=== PATIENT | male | born 1935 | race Caucasian/White ===

== ENCOUNTER 2017-10-31 14:58 | Inpatient (IN) | payer MEDICARE, OTHER ==
--- NOTE | 2017-10-31 15:17 | EDM.PDOC ---
ED HPI GENERAL MEDICAL PROBLEM - General Chief Complaint: Chest Pain Stated Complaint: CHEST PAIN Time Seen by Provider: 10/31/17 15:10 Source of Information: Reports: Patient, Family (daughter) History Limitations: Reports: No Limitations - History of Present Illness INITIAL COMMENTS - FREE TEXT/NARRATIVE: 82-year-old male presents the ED with pleuritic chest pains starting about 3 days ago. Initially was felt across his upper back, mid scapular area and felt on both sides aggravated by deep breathing. Subsequently it became anterior as well and over the last 12 hours and seemed to settle in the left precordium. He states he does have a nonproductive cough. He wasn't aware of any fever but he is very warm to palpation in the ED. Appetitie been very poor the last several days. He does appreciate mild increased shortness of breath on minimal exertion. 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 He states a lot of times she can't eat much because his gastric pouch is quite small but he feels much better than it was 4 years ago when it was first performed. He believes his weight is stable. Denies any night sweats. Onset: Gradual Onset Date: 10/28/17 (Started and across his back about 3 days ago went to his chest yesterday) Duration: Day(s):, Getting Worse, Intermittent, Waxing/Waning Location: Reports: Chest Quality: Reports: Sharp, Stabbing, Other (Pleuritic) Severity: Moderate Improves with: Reports: None Worsens with: Reports: Other, Movement Context: Denies: Activity (Coughing), Exercise, Lifting, Sick Contact, Trauma Associated Symptoms: Reports: Chest Pain, Cough (See history of present illness) , Loss of Appetite, Malaise, Shortness of Breath. 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: Other (see below) (None.) Chest Pain Score (Numeric/FACES): 5 - Related Data Allergies Allergy/AdvReac Type Severity Reaction Status Date / Time Penicillins Allergy Mild UNKNOWN Verified 07/21/15 17:16 Home Meds: Home Meds Aspirin [Halfprin] 81 mg PO DAILY 07/21/15 [History] Calcium Carbonate [Calcium] 500 mg PO Q2D 07/21/15 [History] Finasteride [Proscar] 5 mg PO DAILY 07/21/15 [History] Omeprazole 20 mg PO DAILY 07/21/15 [History] Tamsulosin [Flomax] 0.4 mg PO DAILY 07/21/15 [History] Ascorbate Calcium [Vitamin C] 500 mg PO DAILY 10/31/17 [History] Cyanocobalamin (Vitamin B-12) [Vitamin B-12] 500 mcg PO DAILY 10/31/17 [History] Ferrous Sulfate 325 mg PO DAILY 10/31/17 [History] Metoprolol Succinate [Toprol XL] 25 mg PO DAILY 10/31/17 [History] Pravastatin Sodium [Pravastatin (Pravachol)] 20 mg PO DAILY 10/31/17 [History] Sertraline HCl 50 mg PO DAILY 10/31/17 [History] Ubidecarenone [Coq-10] 200 mg PO DAILY 10/31/17 [History] Past Medical History Cardiovascular History: Reports: High Cholesterol, Hypertension, OR, Pacemaker, SOB on Exertion Respiratory History: Reports: COPD Genitourinary History: Reports: BPH, Prostate Disorder Musculoskeletal History: Reports: Arthritis, Back Pain, Chronic, Osteoarthritis Oncologic (Cancer) History: Reports: Other (See Below) (Gastric carcinoma requiring resection of almost all of his stomach approximately 95%. This occurred about 4-1/2 years ago.) Social & Family History - Tobacco Use Smoking Status *Q: Never Smoker Second Hand Smoke Exposure: No - Recreational Drug Use Recreational Drug Use: No - Living Situation & Occupation Living situation: Reports: (Spouse about 1-1/2 years ago from aggressive ovarian cancer.), Alone Occupation: Retired ED ROS GENERAL - Review of Systems Review Of Systems: See Below Constitutional: Reports: Malaise, Weakness, Fatigue, Decreased Appetite, Weight Loss, Other (He is febrile to examination but he is not aware of this.). Denies : Chills HEENT: Reports: Glasses (Has significant hearing loss.), Hearing Loss. Denies: Dental Pain Respiratory: Reports: Shortness of Breath, Pleuritic Chest Pain (Pleuritic chest pain 3 days felt initially across his upper back now settling more in the left upper anterior chest.), Cough. Denies: Wheezing (Mild), Hemoptysis ( Occasional cough with sputum production usually clear in color.) Cardiovascular: Reports: Chest Pain (Left precordial chest sharp and stabbing off and on for 3 days.), Blood Pressure Problem, Dyspnea on Exertion, Other ( Has a pacemaker in place.). Denies: Claudication (Mild chronic hypertension), Edema, Lightheadedness, Orthopnea, Palpitations Endocrine: Reports: Fatigue GI/Abdominal: Reports: Constipation, Decreased Appetite : Reports: Frequency, Other (Nocturia usually at least 3 times nightly.) Musculoskeletal: Reports: Neck Pain, Back Pain, Joint Pain (Knees hips and hands particularly.) Skin: Reports: No Symptoms Neurological: Reports: No Symptoms Psychiatric: Reports: No Symptoms Hematologic/Lymphatic: Reports: No Symptoms Immunologic: Reports: No Symptoms ED EXAM, GENERAL - Physical Exam Exam: See Below Exam Limited By: Physical Impairment (Mildly hard of hearing. Have to speak quite loudly to him.) General Appearance: Alert, WD/WN, No Apparent Distress, Thin (All ribs and bones are easily visible.) Eye Exam: Bilateral Eye: Normal Inspection Throat/Mouth: Normal Inspection, Normal Lips, Normal Oropharynx. No: Normal Teeth Head: Atraumatic, Normocephalic Neck: Normal Inspection, Supple, Non-Tender, Full Range of Motion. No: Lymphadenopathy (L), Lymphadenopathy (R) Respiratory/Chest: Respiratory Distress, Decreased Breath Sounds (Breath sounds are severely diminished at both posterior lung davis but worse on the right as compared to the left.), Other (Mild tachypnea at rest. Has mild kyphosis with a component of restrictive lung disease. Has COPD.) Cardiovascular: Normal Peripheral Pulses, Regular Rate, Rhythm (100% paced rhythm at 70/m.), Other (Right upper anterior chest scar from removal and placement of a Port-A-Cath in the past. Pacemaker left upper anterior chest.) Peripheral Pulses: 2+: Posterior Tibial (L), Posterior Tibial (R), Dorsalis Pedis (L), Dorsalis Pedis (R) GI/Abdominal: Normal Bowel Sounds, Soft, Non-Tender, No Organomegaly Back Exam: Decreased Range of Motion (Patient has restricted range of motion of lumbar and thoracic spine.), Other. No: Full Range of Motion, CVA Tenderness (L ), CVA Tenderness (R) (Moderate kyphosis thoracic spine.) Extremities: Other (Severe osteophytic changes in all of his distal fingers i.e. severe osteoarthritis.) Neurological: Alert, Oriented, CN II-XII Intact, Normal Cognition, No Motor/ Sensory Deficits. No: Normal Gait Psychiatric: Normal Affect, Normal Mood Skin Exam: Warm, Dry, Intact, Normal Color, No Rash EKG INTERPRETATION EKG Date: 10/31/17 Time: 15:05 Rhythm: Other (100% ventricular paced rhythm at 70/m.) Rate (Beats/Min): 70 [place]: LAD-Left [place] Deviation (Mild left axis deviation at -10.) P-Wave: Present (Complete heart block evident.) QRS: Other (Nonspecific intraventricular conduction delay.) EKG Interpretation Comments: No further analysis attempted due to 100% paced rhythm. Course - Vital Signs Last Recorded V/S: Last Vital Signs Temp 2.9 C L 10/31/17 15:44 Pulse 81 10/31/17 15:04 Resp 20 10/31/17 15:04 BP 138/72 10/31/17 15:04 Pulse Ox 98 10/31/17 15:04 - Orders/Labs/Meds Orders: Active Orders 24 hr Category Date Time Status EKG Documentation Completion [RC] STAT Care 10/31/17 15:19 Active CULTURE BLOOD [BC] Stat Lab 10/31/17 15:40 Received CULTURE BLOOD [BC] Stat Lab 10/31/17 16:08 Received Blood Culture x2 Reflex Set [OM.PC] Stat Oth 10/31/17 15:20 Ordered Labs: Laboratory Tests 10/31/17 10/31/17 10/31/17 Range/Units 15:20 15:20 15:20 WBC 13.02 H (4.23-9.07) K/mm3 RBC 3.85 L (4.63-6.08) M/mm3 Hgb 12.2 L (13.7-17.5) gm/L Hct 37.6 L (40.1-51.0) % MCV 97.7 H (79.0-92.2) fl MCH 31.7 (25.7-32.2) pg MCHC 32.4 (32.2-35.5) g/dl RDW Std Deviation 43.0 (35.1-43.9) fL Plt Count 256 (163-337) K/mm3 MPV 10.8 (9.4-12.3) fl Neutrophils % (Manual) 87 H (40-60) % Band Neutrophils % 0 (0-10) % Lymphocytes % (Manual) 6 L (20-40) % Atypical Lymphs % 0 % Monocytes % (Manual) 7 (2-10) % Eosinophils % (Manual) 0 L (0.8-7.0) % Basophils % (Manual) 0 L (0.2-1.2) Platelet Estimate Adequate Plt Morphology Comment Normal Poikilocytosis 1+ slight ESR 84 H (0-15) mm/hr PT 11.8 (8.0-13.0) SECONDS INR 1.08 Sodium (136-145) mEq/L Potassium (3.5-5.1) mEq/L Chloride (98-107) mEq/L Carbon Dioxide (21-32) mEq/L Anion Gap (5-15) BUN (7-18) mg/dL Creatinine (0.7-1.3) mg/dL Est Cr Clr Drug Dosing mL/min Estimated GFR (MDRD) (>60) mL/min BUN/Creatinine Ratio (14-18) Glucose (83-115) mg/dL Calcium (8.5-10.1) mg/dL Magnesium (1.8-2.4) mg/dl Total Bilirubin (0.2-1.0) mg/dL AST (15-37) U/L ALT (16-63) U/L Alkaline Phosphatase (46-116) U/L CK-MB (CK-2) (0-3.6) ng/ml Troponin I (0.00-0.056) ng/mL C-Reactive Protein (<1.0) mg/dL NT-Pro-B Natriuret Pep (0-450) pg/mL Total Protein (6.4-8.2) g/dl Albumin (3.4-5.0) g/dl Globulin gm/dL Albumin/Globulin Ratio (1-2) Urine Color (Yellow) Urine Appearance (Clear) Urine pH (5.0-8.0) Ur Specific [place] (1.005-1.030) Urine Protein (Negative) Urine Glucose (UA) (Negative) Urine Ketones (Negative) Urine Occult Blood (Negative) Urine Nitrite (Negative) Urine Bilirubin (Negative) Urine Urobilinogen (0.2-1.0) Ur Leukocyte Esterase (Negative) Urine RBC (0-5) /hpf Urine WBC (0-5) /hpf Ur Epithelial Cells (0-5) /hpf Urine Bacteria (FEW) /hpf Urine Mucus (FEW) /hpf 10/31/17 10/31/17 Range/Units 15:20 16:50 WBC (4.23-9.07) K/mm3 RBC (4.63-6.08) M/mm3 Hgb (13.7-17.5) gm/L Hct (40.1-51.0) % MCV (79.0-92.2) fl MCH (25.7-32.2) pg MCHC (32.2-35.5) g/dl RDW Std Deviation (35.1-43.9) fL Plt Count (163-337) K/mm3 MPV (9.4-12.3) fl Neutrophils % (Manual) (40-60) % Band Neutrophils % (0-10) % Lymphocytes % (Manual) (20-40) % Atypical Lymphs % % Monocytes % (Manual) (2-10) % Eosinophils % (Manual) (0.8-7.0) % Basophils % (Manual) (0.2-1.2) Platelet Estimate Plt Morphology Comment Poikilocytosis ESR (0-15) mm/hr PT (8.0-13.0) SECONDS INR Sodium 140 (136-145) mEq/L Potassium 4.0 (3.5-5.1) mEq/L Chloride 105 (98-107) mEq/L Carbon Dioxide 24 (21-32) mEq/L Anion Gap 15.0 (5-15) BUN 20 H (7-18) mg/dL Creatinine 1.1 (0.7-1.3) mg/dL Est Cr Clr Drug Dosing 37.64 mL/min Estimated GFR (MDRD) > 60 (>60) mL/min BUN/Creatinine Ratio 18.2 H (14-18) Glucose 117 H (83-115) mg/dL Calcium 8.6 (8.5-10.1) mg/dL Magnesium 2.0 (1.8-2.4) mg/dl Total Bilirubin 1.0 (0.2-1.0) mg/dL AST 21 (15-37) U/L ALT 12 L (16-63) U/L Alkaline Phosphatase 83 (46-116) U/L CK-MB (CK-2) 1.3 (0-3.6) ng/ml Troponin I 0.085 H* (0.00-0.056) ng/mL C-Reactive Protein 15.9 H* (<1.0) mg/dL NT-Pro-B Natriuret Pep 17457 H (0-450) pg/mL Total Protein 6.8 (6.4-8.2) g/dl Albumin 2.6 L (3.4-5.0) g/dl Globulin 4.2 gm/dL Albumin/Globulin Ratio 0.6 L (1-2) Urine Color [place] H (Yellow) Urine Appearance Clear (Clear) Urine pH 6.0 (5.0-8.0) Ur Specific [place] > or = 1.030 (1.005-1.030) Urine Protein 2+ H (Negative) Urine Glucose (UA) Negative (Negative) Urine Ketones Trace H (Negative) Urine Occult Blood Negative (Negative) Urine Nitrite Negative (Negative) Urine Bilirubin 1+ H (Negative) Urine Urobilinogen 2.0 H (0.2-1.0) Ur Leukocyte Esterase Negative (Negative) Urine RBC 0-5 (0-5) /hpf Urine WBC 0-5 (0-5) /hpf Ur Epithelial Cells 0-5 (0-5) /hpf Urine Bacteria Few (FEW) /hpf Urine Mucus Many H (FEW) /hpf Meds: Medications Discontinued Medications Generic Name Dose Route Start Last Admin Trade Name Ori PRN Reason Stop Dose Admin Acetaminophen 650 mg 10/31/17 15:33 10/31/17 15:44 Tylenol PO 10/31/17 15:34 650 mg NOW ONE Administration Diatrizoate Meglum/Diatrizoate Sod 90 ml 10/31/17 19:29 10/31/17 19:53 Gastrografin 37% PO 10/31/17 19:30 90 ml ONETIME ONE Administration Furosemide 40 mg 10/31/17 17:03 10/31/17 17:11 Lasix IVPUSH 10/31/17 17:04 40 mg NOW ONE Administration Sodium Chloride 1,000 mls @ 125 mls/hr 10/31/17 15:30 10/31/17 16:31 Normal Saline IV 10/31/17 16:40 0 mls/hr ASDIRECTED BLAKE Infusion Levofloxacin/Dextrose 750 mg/ 150 mls @ 100 mls/hr 10/31/17 17:16 10/31/17 17 :23 Premix IV 10/31/17 18:45 100 mls/hr ONETIME ONE Administration Iopamidol 100 ml 10/31/17 19:29 10/31/17 19:53 Isovue-300 (61%) IVPUSH 10/31/17 19:30 100 ml ONETIME ONE Administration Sodium Chloride 10 ml 10/31/17 19:29 10/31/17 19:53 Saline Flush FLUSH 10/31/17 19:30 10 ml ONETIME ONE Administration - Radiology Interpretation Free Text/Narrative:: 82-year-old male presents the ED with pleuritic chest pains initially starting across his upper back 2-3 days ago and seemed to gradually worsening with sharp stabbing pain now in the left precordial chest. Has a history of previous microinfarction. History of complete heart block with pacemaker need left upper anterior chest. Patient's appetite is poor. Clinically he is febrile but denies cough or sputum production on a regular basis. His appetite is poor. He denies any severe chills. Clinically has decreased air into his right lower lobe. Plan 1 view chest x-ray septic workup will be done. - Re-Assessments/Exams Free Text/Narrative Re-Assessment/Exam: 10/31/17 15:56 chest x-ray done portably reveals clear lung davis. There is calcification of the coronary arteries as well as the arch of the aorta. Heart is boot-shaped suggesting left ventricular hypertrophy pattern. There is a pacemaker left upper anterior chest dual paced. Soft tissue swelling noted around the proximal right clavicle at the [place] sternomanubrial joint. Appears to be arthritis. 10/31/17 17:02 Lab work reveals an elevated white count at 13.02 with 87% neutrophils and no bands reported. Hemoglobin is 12.2 with hematocrit of 37.6. Sedimentation rate is markedly elevated at 84. PT is 11.8 with an INR 1.08. Sodium is 140 with potassium of 4.0. Chloride is 105 bicarbonate is 24. And a gap is 15 with BUN of 20. Creatinine is normal at 1.1. Glucose is 117. Calcium is 8.6. Magnesium is good at 2.0. Liver function is normal. CK-MB fraction is 1.3 troponin I is slightly elevated at 0.085. C-reactive protein is elevated at 15.9. BNP is markedly elevated at 12,302. Albumin fraction is low at 2.6. Influenza screen is negative. Patient has yet to void. Source of infection is therefore not yet identified but suspect prostate urinary tract is a secondary source. Will give Lasix 40 mg IV. IV has been reduced to peripheral lock. 10/31/17 17:14 patient is still febrile. He has passed a urine sample and it is being analyzed. I am going to start him on Levaquin 750 mg now as lab work strongly suggested occult infection likely in the prostate he recognizes he has incomplete emptying of his urinary bladder. 10/31/17 18:01 urinalysis is also negative for any obvious source of infection. Will have a bladder scan done on him after his next void to see what his residual is. 10/31/17 18:19 Source of infection therefore is not clarified. Will therefore proceed with CT of the chest, abdomen and pelvis with oral and IV contrast. His creatinine is 1.1. 10/31/17 20:47 CT of the abdomen has been finally done. It was done of the chest abdomen and pelvis. CT chest shows bilateral small pleural effusions and basilar atelectasis bilaterally. Diffuse emphysematous change small pericardial effusion. Her artery calcification is appreciated. Pacemaker noted left upper anterior chest. CT of the abdomen and pelvis performed. Reveals a cyst within the anterior right lobe of the liver measuring about 1.1 cm. Small cyst also noted posteriorly within the liver measuring 1.3 cm. No additional maladies seen within the liver. Spleen appears to be normal kidneys show symmetric contrast enhancement without hydronephrosis or mass. Due to glands are normal aorta shows diffuse atherosclerotic calcium case which continues into the iliac vessels without aneurysmal dilatation. Pancreas is poorly seen compared with atrophy. No peritoneal adenopathy or mesenteric abdomen maladies are seen. No pelvic mass or adenopathy appreciated either. Delayed images shows contrast within the distal ureters with minimal contrast seen within the urinary bladder. Prostate is grossly enlarged. Extensive degenerative disease of the thoracolumbar spine appreciated with scoliosis concave to the right appreciated due to degenerative disc and arthritis in his back. Surgical material is noted within the right lower abdomen compatible with previous hernia mesh repair. Appendix is not seen with any degree of certainty. Therefore no obvious source of infection identified within the urinary tract. I did aspirate a bladder scan postvoid and still not able to come up with enhanced to this. The numbers in the chart suggests that there is still 200 mils of urine left in his bladder postvoid. I will have this repeated after the next void as there is been a change of nursing staff. Once able discuss case with Dr. Mckenna manager communication hospitalist with a view to being admitted. Departure - Departure Time of Disposition: 21:10 Disposition: Home, Self-Care 01 Condition: Fair Clinical Impression: Pleurisy with effusion, CHF (NYHA class II, ACC/AHA stage C), Fever of unknown origin, Prostatism, Neutrophilic leukocytosis, History of cancer of stomach Referrals: Henrry Elizalde MD [Primary Care Provider] - Forms: ED Department Discharge - My Orders Last 24 Hours: My Active Orders 10/31/17 15:19 EKG Documentation Completion [RC] STAT 10/31/17 15:20 Blood Culture x2 Reflex Set [OM.PC] Stat 10/31/17 15:40 CULTURE BLOOD [BC] Stat 10/31/17 16:08 CULTURE BLOOD [BC] Stat - Assessment/Plan Last 24 Hours: My Active Orders 10/31/17 15:19 EKG Documentation Completion [RC] STAT 10/31/17 15:20 Blood Culture x2 Reflex Set [OM.PC] Stat 10/31/17 15:40 CULTURE BLOOD [BC] Stat 10/31/17 16:08 CULTURE BLOOD [BC] Stat
[2017-10-31] MEDS ORDERED: Sodium Chloride 0.9% 1,000 ML IV SCH (15:30)
[2017-10-31] MEDS ORDERED: Acetaminophen 325 MG Tab PO ONE (15:33)
--- NOTE | 2017-10-31 16:16 | CR ---
Chest: Portable view of the chest was obtained. Comparison: Prior chest x-ray of 07/21/15. Heart is enlarged. Tortuous thoracic aorta is noted. Pacemaker is present. Right shoulder prosthesis is seen. Lungs are clear with no acute infiltrates. Old trauma is noted to the left shoulder as well as previous left shoulder surgery. Scoliosis and degenerative change are noted within the spine. Impression: 1. Multiple findings as noted above. Nothing acute is seen on portable chest x-ray. Diagnostic code #2
[2017-10-31] MEDS ORDERED: Furosemide 40 MG/4 ML VIAL IVPUSH ONE (17:03)
[2017-10-31] MEDS ORDERED: Levofloxacin/Dextrose 5%-Water 750 MG in Premix Bag 1 BAG IV ONE (17:16)
[2017-10-31] MEDS ORDERED: Iopamidol 612 MG/ML 100 ML Bottle IVPUSH ONE (19:29)
[2017-10-31] MEDS ORDERED: Sodium Chloride 0.9% 10 ML Syringe FLUSH ONE (19:29)
[2017-10-31] MEDS ORDERED: Diatrizoate Meglumine/Diatrizoate Sodium 37% 120 ML Bottle PO ONE (19:29)
--- NOTE | 2017-10-31 20:34 | CT ---
CT chest Technique: Multiple axial sections were obtained through the chest. Intravenous contrast was utilized. Comparison: Prior chest x-ray performed earlier on the same day. Findings: Mediastinum and hilar regions appear within normal limits. Pacemaker is noted. Coronary artery calcification is noted. Minimal pericardial effusion is seen. Emphysematous changes are seen throughout the lungs. Slight atelectasis is seen within both lung bases. Small bilateral pleural effusions are noted. Bone window settings were reviewed which shows diffuse disc space narrowing and endplate osteophytes throughout the thoracic spine. Impression: 1. Small bilateral pleural effusions and bibasilar atelectasis. 2. Emphysematous change. 3. Small pericardial effusion and other incidental findings. Diagnostic code #3 CT abdomen and pelvis Technique: Multiple axial sections were obtained from above the dome of the diaphragm inferiorly through the pubic symphysis. Intravenous contrast and oral contrast has been given. Comparison: Prior noncontrast CT abdomen and pelvis exam of 07/21/15 performed as a ureteral stone protocol. Findings: Cyst identified within the anterior right lobe of the liver measuring approximately 1.1 cm. Small cyst noted posteriorly within the liver measuring 1.3 cm. No additional abnormality is seen within the liver. Spleen appears within normal limits. Kidneys show symmetric contrast enhancement without hydronephrosis or mass. Adrenal glands show no nodule. Aorta shows diffuse atherosclerotic calcification which continues into the iliac vessels without aneurysmal dilatation. Pancreas poorly is seen compatible with atrophy. No peritoneal adenopathy or mesenteric abnormalities are seen. No pelvic mass or adenopathy is seen. Delayed images shows contrast within distal ureters with minimal contrast seen within the bladder. Bone window settings were reviewed which shows diffuse degenerative change within the lumbar spine with multiple levels of vacuum phenomena as well as endplate spurring. Scoliosis is present within the lumbar spine. Surgical material is noted within the right lower abdomen within the groin compatible with previous hernia repair. Appendix is not identified with certainty. Impression: 1. Incidental findings as noted above. Nothing acute is appreciated on CT study of the abdomen and pelvis. Diagnostic code #2
--- NOTE | 2017-10-31 22:29 | PCM.HP ---
H&P History of Present Illness - General Date of Service: 10/31/17 Admit Problem/Dx: Chest pain, CHF Source of Information: Patient, Family, Old Records, Provider, RN, RN Notes Reviewed History Limitations: Reports: No Limitations - History of Present Illness Initial Comments - Free Text/Narative: Jose Armando Chamberlain is a 82 yo male who is to our ED today with pleuritic chest pain that started about 3 days ago. He states it initially started across his upper back midscapular area bilaterally. Is aggravated by deep breathing. It then progressed to become anterior as well as the last 12 hours and seemed to settle in his left precordium. It is reported nonproductive cough. Denies any fever but he does feel bark grinder the ED. Appetite is very poor the past several days. He does have increased dyspnea on exertion. 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 There is been no evidence of recurrent disease process, however he has not had a PET scan some time. He reports he is unable to eat much but is better than when it was initially performed. He reports weight is stable. Denies any night sweats. Once in the ED twelve-lead was a obtained shows 100% paced rhythm at 70 bpm. There is left axis deviation and an evident complete heart block. Nonspecific ventricular conduction delay. Temp is 98.8 Fahrenheit. Pulse 81. Respirations 20. Blood pressure 130/72. Pulse ox 98%. Blood cultures were obtained. Labs were obtained: WBC is elevated at 13.02. Hemoglobin low at 12.2. Hematocrit low at 37.6. He is macrocytic. Blood sugar 256,000. Neutrophils are elevated at 87%. There is no bandemia. ESR is elevated at 84. PT is 11.8. INR is 1.08. Sodium was good at 140. Potassium 4.0. Chloride 105. Maxzide 24. Anion gap is 15.0. BUN is 20. Creatinine 1.1. EGFR is greater than 60. Glucose is 117. Calcium 8.6. Magnesium 2.0. Total bilirubin 1.0. AST is 21, ALT 12, alkaline phosphatase 83. CK-MB is 1.3. Troponin 0.085. CRP is 15.9 which is high. ProBNP is very high at 12,302. Protein was good at 6.8. Albumin low at 2.6. UA was negative however the color was noted to be orange, 2+ protein, trace ketones, 1+ bilirubin, and many urine mucus were noted. He was given 650 mg Tylenol, 40 mg of Lasix, Serevent 50 mg of Levaquin, and fluids were started 125 mils an hour. He is noted to have a pacemaker in the left anterior chest. Chest x-rays performed and interpreted by Dr. Sarabia as showing a enlarged heart with tortuous thoracic aorta. Pacemaker is present. Right shoulder prosthesis is seen. Lungs are clear with no acute infiltrates. All traumas noted left shoulder as well as previous left shoulder surgery. Scoliosis and degenerative changes are noted within the spine. CT of the chest is obtained and interpreted by Dr. Sarabia as "1. Small bilateral pleural effusions and bibasilar atelectasis. 2. Emphysematous change. 3. Small pericardial effusion other incidental findings. CT of the abdomen and pelvis obtained and interpreted by Dr. Sarabia as "1. Several findings as noted. Nothing acute is appreciated on CT study of the abdomen and pelvis." He did have a post void bladder scan which showed 200 mils of urine postvoid. He does carry a history of HLD, HTN, GA, pacemaker, stress breath on exertion, COPD, BPH, prostate disorder, arthritis, chronic back pain, osteoarthritis, gastric carcinoma requiring resection with all his stomach at approximately 95% around for half years ago. He was never a smoker. Family reports he was being followed by urology for his bladder issues however he has not seen them in several years. He subsequently admitted to the medical floor on telemetry. He is a full code. His PCP is Dr. Elizalde at [facility]. Onset of Symptoms: Reports: Gradual Symptom Onset Date: 10/28/17 Duration of Symptoms: Reports: Getting Worse, Intermittent, Waxing/Waning Location: Reports: Chest Improves with: Reports: None Worsens with: Reports: Other (deep inspiration ), Movement Context: Reports: Lifting Associated Symptoms: Reports: Chest Pain, Cough, Loss of Appetite, Malaise, Shortness of Breath Chest Pain Score (Numeric/FACES): 3 - Related Data Allergies/Adverse Reactions: Allergies Allergy/AdvReac Type Severity Reaction Status Date / Time Penicillins Allergy Mild UNKNOWN Verified 07/21/15 17:16 Home Medications: Home Meds Aspirin [Halfprin] 81 mg PO DAILY 07/21/15 [History] Calcium Carbonate [Calcium] 500 mg PO Q2D 07/21/15 [History] Finasteride [Proscar] 5 mg PO DAILY 07/21/15 [History] Omeprazole 20 mg PO DAILY 07/21/15 [History] Tamsulosin [Flomax] 0.4 mg PO DAILY 07/21/15 [History] Ascorbate Calcium [Vitamin C] 500 mg PO DAILY 10/31/17 [History] Cyanocobalamin (Vitamin B-12) [Vitamin B-12] 500 mcg PO DAILY 10/31/17 [History] Ferrous Sulfate 325 mg PO DAILY 10/31/17 [History] Metoprolol Succinate [Toprol XL] 25 mg PO DAILY 10/31/17 [History] Pravastatin Sodium [Pravastatin (Pravachol)] 20 mg PO DAILY 10/31/17 [History] Sertraline HCl 50 mg PO DAILY 10/31/17 [History] Ubidecarenone [Coq-10] 200 mg PO DAILY 10/31/17 [History] Past Medical History HEENT History: Reports: Cataract, Impaired Vision Other HEENT History: corrective lenses Cardiovascular History: Reports: High Cholesterol, Hypertension, GA, Pacemaker, SOB on Exertion Respiratory History: Reports: COPD Gastrointestinal History: Reports: GERD Genitourinary History: Reports: BPH, Prostate Disorder Musculoskeletal History: Reports: Arthritis, Back Pain, Chronic, Osteoarthritis Hematologic History: Reports: Anemia, B12 Deficiency Oncologic (Cancer) History: Reports: Other (See Below) (Gastric carcinoma requiring resection of almost all of his stomach approximately 95%. This occurred about 4-1/2 years ago.) Other Oncologic History: stomach cancer - Past Surgical History HEENT Surgical History: Reports: Cataract Surgery Cardiovascular Surgical History: Reports: Pacer GI Surgical History: Reports: Other (See Below) Other GI Surgeries/Procedures: States 95% of stomach removed Musculoskeletal Surgical History: Reports: Carpal Tunnel, Other (See Below) Other Musculoskeletal Surgeries/Procedures:: rotator cuff repair Social & Family History - Tobacco Use Smoking Status *Q: Never Smoker Used Tobacco, but Quit: Yes Month Tobacco Last Used: 1959 Second Hand Smoke Exposure: No - Caffeine Use Caffeine Use: Reports: Coffee - Recreational Drug Use Recreational Drug Use: No - Living Situation & Occupation Living situation: Reports: (Spouse about 1-1/2 years ago from aggressive ovarian cancer.), Alone Occupation: Retired H&P Review of Systems - Review of Systems: Review Of Systems: See Below General: Reports: Malaise, Weakness, Fatigue, Decreased Appetite. Denies: Fever , Chills, Night Sweats, Weight Loss, Weight Gain HEENT: Denies: Dysphasia, Ear Pain, Eye Pain, Headaches, Rhinitis, Sinus Congestion, Sore Throat, Vertigo, Visual Changes Pulmonary: Reports: Shortness of Breath, Pleuritic Chest Pain, Cough, Sputum. Denies: Wheezing, Hemoptysis Cardiovascular: Reports: Chest Pain, Dyspnea on Exertion, Orthopnea. Denies: Palpitations, Edema, Lightheadedness Gastrointestinal: Reports: Constipation, Decreased Appetite. Denies: Diarrhea, Hematemesis, Hematochezia, Melena, Nausea, Vomiting Genitourinary: Reports: Frequency (will get up several times per night and only "dribble" ), Retention. Denies: Dysuria, Burning, Pain, Urgency Musculoskeletal: Reports: Neck Pain, Back Pain, Joint Pain (knees, hips, hands ) Skin: Reports: No Symptoms Psychiatric: Reports: No Symptoms Neurological: Reports: No Symptoms Hematologic/Lymphatic: Reports: No Symptoms Immunologic: Reports: No Symptoms Exam - Exam Exam: See Below - Vital Signs Vital Signs: Last Vital Signs Temp 37.3 F L 10/31/17 15:44 Pulse 81 10/31/17 15:04 Resp 20 10/31/17 15:04 BP 138/72 10/31/17 15:04 Pulse Ox 98 10/31/17 15:04 Weight: 129 lb - Exam General: Alert, Oriented, Cooperative. No: Mild Distress HEENT: Conjunctiva Clear, EACs Clear, EOMI, Hearing Intact (although somewhat hard of hearing ), Mucosa Moist & [place], Nares Patent, Normal Nasal Septum, Posterior Pharynx Clear, TMs Clear, PERRLA Neck: Supple, Trachea Midline, Full Range of Motion. No: Lymphadenopathy, JVD, Thyromegaly Lungs: Clear to Auscultation, Normal Respiratory Effort, Decreased Breath Sounds (bases) Cardiovascular: Regular Rate, Regular Rhythm, Other (pacemaker in left chest - 100% paced rhythm) GI/Abdominal Exam: Normal Bowel Sounds, Soft, Non-Tender, No Organomegaly, No Distention, No Abnormal Bruit, No Mass, Pelvis Stable (Male) Exam: Deferred Rectal (Males) Exam: Deferred Back Exam: Normal Inspection, Decreased Range of Motion, Other (mild kyphosis ) Extremities: Normal Range of Motion, Non-Tender, No Pedal Edema, Normal Capillary Refill, Other (severe osteoarthritic changes to fingers) Peripheral Pulses: 3+: Radial (L), Radial (R), Posterior Tibial (L), Posterior Tibial (R), Dorsalis Pedis (L), Dorsalis Pedis (R) Skin: Warm, Dry, Intact Neurological: Cranial Nerves Intact (grossly) Neuro Extensive - Mental Status: Alert, Oriented x3, Normal Mood/Affect, Normal Cognition, Memory Intact Neuro Extensive - Motor, Sensory, Reflexes: CN II-XII Intact (grossly ), Abnormal Gait Psychiatric: Alert, Normal Affect, Normal Mood - Patient Data Result Diagrams: 10/31/17 15:20 10/31/17 15:20 *Q Meaningful Use (ADM) - VTE *Q VTE Criteria *Q: - Stroke *Q Stroke Criteria *Q: - AMI *Q AMI Criteria *Q: - Problem List (1) CHF (NYHA class II, ACC/AHA stage C) SNOMED Code(s): 201152371 ICD Code: I50.9 - HEART FAILURE, UNSPECIFIED Status: Acute Priority: High Current Visit: Yes (2) Fever of unknown origin SNOMED Code(s): 5632076 ICD Code: R50.9 - FEVER, UNSPECIFIED Status: Acute Priority: High Current Visit: Yes (3) History of cancer of stomach SNOMED Code(s): 323509329 ICD Code: Z85.028 - PERSONAL HISTORY OF OTHER MALIGNANT NEOPLASM OF STOMACH Status: Chronic Priority: Low Current Visit: Yes (4) Neutrophilic leukocytosis SNOMED Code(s): 572979903 ICD Code: D72.9 - DISORDER OF WHITE BLOOD CELLS, UNSPECIFIED Status: Acute Priority: High Current Visit: Yes (5) Pleurisy with effusion SNOMED Code(s): 71537096 ICD Code: J90 - PLEURAL EFFUSION, NOT ELSEWHERE CLASSIFIED Status: Acute Priority: High Current Visit: Yes (6) COPD (chronic obstructive pulmonary disease) SNOMED Code(s): 77590809 ICD Code: J44.9 - CHRONIC OBSTRUCTIVE PULMONARY DISEASE, UNSPECIFIED Status : Chronic Priority: Medium Current Visit: Yes Qualifiers: COPD type: unspecified COPD Qualified Code(s): J44.9 - Chronic obstructive pulmonary disease, unspecified (7) BPH (benign prostatic hyperplasia) SNOMED Code(s): 211126499 ICD Code: N40.0 - BENIGN PROSTATIC HYPERPLASIA WITHOUT LOWER URINRY TRACT SYMP Status: Chronic Priority: Medium Current Visit: Yes Qualifiers: Lower urinary tract symptom presence: symptoms present Lower urinary tract symptom detail: urinary retention Qualified Code(s): N40.1 - Benign prostatic hyperplasia with lower urinary tract symptoms; R33.8 - Other retention of urine ; R33.8 - Other retention of urine (8) Arthritis SNOMED Code(s): 2937271 ICD Code: M19.90 - UNSPECIFIED OSTEOARTHRITIS, UNSPECIFIED SITE Status: Chronic Priority: Low Current Visit: No (9) Osteoarthritis SNOMED Code(s): 353651893 ICD Code: M19.90 - UNSPECIFIED OSTEOARTHRITIS, UNSPECIFIED SITE Status: Chronic Priority: Low Current Visit: No Qualifiers: Osteoarthritis location: multiple joints Osteoarthritis type: primary Qualified Code(s): M15.0 - Primary generalized (osteo)arthritis Problem List Initiated/Reviewed/Updated: Yes Assessment/Plan Comment:: I/P Acute: Suspected new onset CHF -In ED with pleurisy with pain over past 3 days, worsening -Hx/o GA, pacemaker - 100% paced rhythm on 12-lead -Family reports high salt intake, occasional pedal edema -BNP 45138 -repeat -Echo ordered -Lasix given in ED - continue BID to diuresis -Fluid and sodium restriction -Data Warehouse Administrator consult for CHF diet Elevated troponin -Troponin 0.085 in ED -CK-MB 1.3 -Likely due to demand ischemia from above -Hx/o GA -Will repeat Elevated CRP -15.9 -hx/o severe arthritis -Possibly due to chronic inflammatory state - i.e. severe arthritis -Monitor Leukocytosis -WBC 13.02 -[place] bark grinder ED per provider report -No documented fever, reports occasional productive cough with clear sputum -UA, CXR, Abdomen/Pelvis CT, influnza screen: all negative for acute findings -Chest CT - Bilateral pleural effusions and bibasilar atelectasis - IS/RT -Emphysematous changes -Small pericardial effusion -Blood cultures obtained -Family reports pt. has had inflamed "wisdom tooth" - dentist is following -Mycoplasma pneumonia, strep pneumoniae ordered -Levaquin 750mg given in ED - continue -Repeat CXR in 24-48 hrs Anemia -Hgb 12.2, Hct 13.6, macrocytic -Hx/o BUSTER and B-12 deficiency -Continue home supplementation -B12, Folate, Iron panel ordered -Has reported poor oral intake over past few days -No hematochezia, hematemesis, melena, or obvious bleeding Pleurisy -Pain across chest which is worse with deep inspiration -No recent trauma -CXR negative for acute findings -Hx/o severe arthritis and osteoarthritis, COPD -Pain medications as ordered -Monitor Urinary retention -200mL post void -Hx/o BPH, has seen urology in past but has been several years -UA negative -Family reports increased frequency with minimal output -"dribbles" -Home Flomax and finasteride -Monitor -Will likely need urology f/u after discharge Chronic: HLD HTN - home meds and PRN BB, hydralizine Hx/o GA Pacemaker with 100% paced rhythm Dyspnea on exhertion COPD - duoneb/RT if needed BPH Arthritis Back pain OA Hx/o gastric carcinoma with 95% stomach resection Plan: Admit to medical floor on telemetry CM for discharge planning PT/OT DVT/PE prophylaxis: ELLIOT hose and Lovenox Other orders as indicated above Routine AM labs Home medications as ordered Code status: Full Code; PCP: Dr. Elizalde at [facility] here in [place].
[2017-10-31] MEDS ORDERED: Acetaminophen/HYDROcodone 325-5 MG Tab PO PRN (22:47)
[2017-10-31] MEDS ORDERED: Docusate Sodium 100 MG Cap PO PRN (22:47)
[2017-10-31] MEDS ORDERED: Ondansetron 4 MG/2 ML SDV IV PRN (22:47)
[2017-10-31] MEDS ORDERED: Morphine 2 MG/ML Syringe IVPUSH PRN (22:47)
[2017-10-31] MEDS ORDERED: Bisacodyl 5 MG Tab PO PRN (22:47)
[2017-10-31] MEDS ORDERED: Ondansetron 4 MG Tab.DIS PO PRN (22:47)
[2017-10-31] MEDS ORDERED: Albuterol/Ipratropium 3.0-0.5 MG/3 ML Neb Soln NEB PRN (22:47)
[2017-10-31] MEDS ORDERED: Acetaminophen 325 MG Tab PO PRN (22:47)
[2017-10-31] MEDS ORDERED: Polyethylene Glycol 3350 Powder 17 GM Packet PO PRN (22:47)
[2017-10-31] MEDS ORDERED: Metoprolol Tartrate 5 MG/5 ML SDV IVPUSH PRN (22:52)
[2017-10-31] MEDS ORDERED: hydrALAZINE 20 MG/ML SDV IVPUSH PRN (22:52)
[2017-10-31] MEDS ORDERED: Nitroglycerin 0.4 MG Tab.SL SL PRN (22:53)
[2017-10-31] MEDS ORDERED: Famotidine 20 MG Tab PO SCH (23:00)
[2017-11-01] MEDS ORDERED: Ferrous Sulfate 325 MG Tab PO SCH (07:00)
[2017-11-01] MEDS: Furosemide 40 MG/4 ML VIAL IVPUSH SCH ×2 (07:36→12:40)
[2017-11-01] MEDS ORDERED: Enoxaparin 40 MG/0.4 ML Syringe SUBCUT SCH (09:00)
[2017-11-01] MEDS ORDERED: Non-Formulary Medication 1 Each (Pravastatin Sodium 20 MG) PO SCH (09:00)
[2017-11-01] MEDS ORDERED: Metoprolol Succinate 25 MG Tab.ER PO SCH (09:00)
[2017-11-01] MEDS ORDERED: Non-Formulary Medication 1 Each (Ubidecarenone 200 MG) PO SCH (09:00)
[2017-11-01] MEDS ORDERED: Enoxaparin 30 MG/0.3 ML Syringe SUBCUT SCH (09:00)
[2017-11-01] MEDS: Ascorbic Acid 500 MG Tab PO SCH (09:30)
[2017-11-01] MEDS: Finasteride 5 MG Tab PO SCH (09:30)
[2017-11-01] MEDS: Aspirin 81 MG Tab.EC PO SCH (09:32)
[2017-11-01] MEDS: Sertraline 50 MG Tab PO SCH (09:33)
[2017-11-01] MEDS: Cyanocobalamin (Vitamin B12) 1,000 MCG Tab PO SCH (09:33)
[2017-11-01] MEDS: Famotidine 20 MG Tab PO SCH (09:33)
[2017-11-01] MEDS: Tamsulosin 0.4 MG Cap.ER PO SCH (09:33)
[2017-11-01] MEDS: Enoxaparin 40 MG/0.4 ML Syringe SUBCUT SCH (09:34)
[2017-11-01] MEDS: Potassium Chloride 10% 20 MEQ/15 ML Soln 30 ML UD Cup PO SCH ×2 (10:41→21:51)
--- NOTE | 2017-11-01 10:44 | PCM.CONSN ---
- General Info Date of Service: 11/01/17 - Patient Data Vitals - Most Recent: Last Vital Signs Temp 97.9 F 11/01/17 08:49 Pulse 79 11/01/17 08:49 Resp 19 11/01/17 08:49 BP 116/74 11/01/17 09:58 Pulse Ox 97 11/01/17 08:49 Weight - Most Recent: 55.52 kg I&O - Last 24 Hours: Intake & Output 10/31/17 11/01/17 11/01/17 23:59 07:59 15:59 Intake Total 100 Output Total 600 400 Balance -600 -300 Lab Results Last 24 Hours: Laboratory Results - last 24 hr 10/31/17 11/01/17 11/01/17 Range/Units 23:14 06:05 06:05 WBC 8.23 (4.23-9.07) K/mm3 RBC 3.74 L (4.63-6.08) M/mm3 Hgb 11.9 L (13.7-17.5) gm/L Hct 36.1 L (40.1-51.0) % MCV 96.5 H (79.0-92.2) fl MCH 31.8 (25.7-32.2) pg MCHC 33.0 (32.2-35.5) g/dl RDW Std Deviation 42.0 (35.1-43.9) fL Plt Count 230 (163-337) K/mm3 MPV 10.9 (9.4-12.3) fl Neut % (Auto) 77.0 H (34.0-67.9) % Lymph % (Auto) 11.7 L (21.8-53.1) % [place] % (Auto) 10.7 (5.3-12.2) % Eos % (Auto) 0.4 L (0.8-7.0) Baso % (Auto) 0.1 (0.1-1.2) % Neut # (Auto) 6.34 H (1.78-5.38) K/mm3 Lymph # (Auto) 0.96 L (1.32-3.57) K/mm3 [place] # (Auto) 0.88 H (0.30-0.82) K/mm3 Eos # (Auto) 0.03 L (0.04-0.54) K/mm3 Baso # (Auto) 0.01 (0.01-0.08) K/mm3 Sodium 141 (136-145) mEq/L Potassium 3.3 L (3.5-5.1) mEq/L Chloride 106 (98-107) mEq/L Carbon Dioxide 25 (21-32) mEq/L Anion Gap 13.3 (5-15) BUN 24 H (7-18) mg/dL Creatinine 1.1 (0.7-1.3) mg/dL Est Cr Clr Drug Dosing 37.64 mL/min Estimated GFR (MDRD) > 60 (>60) mL/min BUN/Creatinine Ratio 21.8 H (14-18) Glucose 100 (83-115) mg/dL Calcium 8.3 L (8.5-10.1) mg/dL Iron (65-175) ug/dL TIBC (100-400) ug/dL % Saturation (20-55) % Transferrin (202-364) mg/dL Troponin I 0.096 H* 0.092 H* (0.00-0.056) ng/mL C-Reactive Protein 15.7 H* (<1.0) mg/dL NT-Pro-B Natriuret Pep 8508 H (0-450) pg/mL Vitamin B12 (193-986) pg/ml Folate (8.6-58.9) ng/mL Mycoplasma pneumon IgM Negative (NEGATIVE) 11/01/17 Range/Units 06:05 WBC (4.23-9.07) K/mm3 RBC (4.63-6.08) M/mm3 Hgb (13.7-17.5) gm/L Hct (40.1-51.0) % MCV (79.0-92.2) fl MCH (25.7-32.2) pg MCHC (32.2-35.5) g/dl RDW Std Deviation (35.1-43.9) fL Plt Count (163-337) K/mm3 MPV (9.4-12.3) fl Neut % (Auto) (34.0-67.9) % Lymph % (Auto) (21.8-53.1) % [place] % (Auto) (5.3-12.2) % Eos % (Auto) (0.8-7.0) Baso % (Auto) (0.1-1.2) % Neut # (Auto) (1.78-5.38) K/mm3 Lymph # (Auto) (1.32-3.57) K/mm3 [place] # (Auto) (0.30-0.82) K/mm3 Eos # (Auto) (0.04-0.54) K/mm3 Baso # (Auto) (0.01-0.08) K/mm3 Sodium (136-145) mEq/L Potassium (3.5-5.1) mEq/L Chloride (98-107) mEq/L Carbon Dioxide (21-32) mEq/L Anion Gap (5-15) BUN (7-18) mg/dL Creatinine (0.7-1.3) mg/dL Est Cr Clr Drug Dosing mL/min Estimated GFR (MDRD) (>60) mL/min BUN/Creatinine Ratio (14-18) Glucose (83-115) mg/dL Calcium (8.5-10.1) mg/dL Iron 26 L (65-175) ug/dL TIBC 154 (100-400) ug/dL % Saturation 17 L (20-55) % Transferrin 123 L (202-364) mg/dL Troponin I (0.00-0.056) ng/mL C-Reactive Protein (<1.0) mg/dL NT-Pro-B Natriuret Pep (0-450) pg/mL Vitamin B12 953 (193-986) pg/ml Folate 23.5 (8.6-58.9) ng/mL Mycoplasma pneumon IgM (NEGATIVE) Med Orders - Current: Current Medications Acetaminophen (Tylenol) 650 mg PO Q4H PRN PRN Reason: Pain (Mild 1-3)/fever Hydrocodone Bitart/Acetaminophen ([place] 325-5 Mg) 1 tab PO Q4H PRN PRN Reason: Pain (moderate 4-6) Albuterol/Ipratropium (Duoneb 3.0-0.5 Mg/3 Ml) 3 ml NEB Q4H PRN PRN Reason: Shortness Of Breath/wheezing Ascorbic Acid (Vitamin C) 500 mg PO DAILY [facility] Last Admin: 11/01/17 09:30 Dose: 500 mg Aspirin (Halfprin) 81 mg PO DAILY [facility] Last Admin: 11/01/17 09:32 Dose: 81 mg Bisacodyl (Dulcolax) 5 mg PO DAILY PRN PRN Reason: Constipation Cyanocobalamin (Vitamin B12) 500 mcg PO DAILY [facility] Last Admin: 11/01/17 09:33 Dose: 500 mcg Docusate Sodium (Colace) 100 mg PO BID PRN PRN Reason: Constipation Enoxaparin Sodium (Lovenox) 40 mg SUBCUT DAILY [facility] Last Admin: 11/01/17 09:34 Dose: 40 mg Famotidine (Pepcid) 20 mg PO DAILY [facility] Last Admin: 11/01/17 09:33 Dose: 20 mg Ferrous Sulfate (Ferrous Sulfate) 325 mg PO WITHBREAKFAST [facility] Last Admin: 11/01/17 07:36 Dose: 325 mg Finasteride (Proscar) 5 mg PO DAILY [facility] Last Admin: 11/01/17 09:30 Dose: 5 mg Furosemide (Lasix) 20 mg IVPUSH BID [facility] Hydralazine HCl (Apresoline) 10 mg IVPUSH Q6H PRN PRN Reason: Hypertension Levofloxacin/Dextrose 750 mg/ (Premix) 150 mls @ 100 mls/hr IV Q48H [facility] Metoprolol Succinate (Toprol Xl) 25 mg PO DAILY [facility] Metoprolol Tartrate (Lopressor) 5 mg IVPUSH Q4H PRN PRN Reason: Tachycardia Morphine Sulfate (Morphine) 0.5 mg IVPUSH Q2H PRN PRN Reason: Pain (severe 7-10) Stop: 11/01/17 22:49 Last Admin: 10/31/17 23:32 Dose: 0.5 mg Nitroglycerin (Nitrostat) 0.4 mg SL Q5M PRN PRN Reason: Chest Pain Non-Formulary Medication (Calcium Carbonate [Calcium]) 500 mg PO Q2D [facility] Ondansetron HCl (Zofran Odt) 4 mg PO Q6H PRN PRN Reason: nausea, able to take PO Ondansetron HCl (Zofran) 4 mg IV Q6H PRN PRN Reason: Nausea/Vomiting Polyethylene Glycol (Miralax) 17 gm PO DAILY PRN PRN Reason: Constipation Potassium Chloride (Potassium Chloride) 40 meq PO BID [facility] Senna/Docusate Sodium (Senna Plus) 1 tab PO BID PRN PRN Reason: Constipation Sertraline HCl (Zoloft) 50 mg PO DAILY [facility] Last Admin: 11/01/17 09:33 Dose: 50 mg Simvastatin (Zocor) 10 mg PO BEDTIME [facility] Tamsulosin HCl (Flomax) 0.4 mg PO DAILY [facility] Last Admin: 11/01/17 09:33 Dose: 0.4 mg Discontinued Medications Acetaminophen (Tylenol) 650 mg PO NOW ONE Stop: 10/31/17 15:34 Last Admin: 10/31/17 15:44 Dose: 650 mg Diatrizoate Meglum/Diatrizoate Sod (Gastrografin 37%) 90 ml PO ONETIME ONE Stop: 10/31/17 19:30 Last Admin: 10/31/17 19:53 Dose: 90 ml Enoxaparin Sodium (Lovenox) 40 mg SUBCUT DAILY [facility] Famotidine (Pepcid) 20 mg PO BID [facility] Last Admin: 10/31/17 23:29 Dose: 20 mg Furosemide (Lasix) 40 mg IVPUSH NOW ONE Stop: 10/31/17 17:04 Last Admin: 10/31/17 17:11 Dose: 40 mg Furosemide (Lasix) 40 mg IVPUSH BID [facility] Last Admin: 11/01/17 07:36 Dose: 40 mg Sodium Chloride (Normal Saline) 1,000 mls @ 125 mls/hr IV ASDIRECTED [facility] Stop: 10/31/17 16:40 Last Infusion: 10/31/17 16:31 Dose: 0 mls/hr Levofloxacin/Dextrose 750 mg/ (Premix) 150 mls @ 100 mls/hr IV ONETIME ONE Stop: 10/31/17 18:45 Last Admin: 10/31/17 17:23 Dose: 100 mls/hr Iopamidol (Isovue-300 (61%)) 100 ml IVPUSH ONETIME ONE Stop: 10/31/17 19:30 Last Admin: 10/31/17 19:53 Dose: 100 ml Non-Formulary Medication (Ubidecarenone) 200 mg PO DAILY [facility] Sodium Chloride (Saline Flush) 10 ml FLUSH ONETIME ONE Stop: 10/31/17 19:30 Last Admin: 10/31/17 19:53 Dose: 10 ml Consult PN Assessment/Plan Procedures: Procedures ASSAY OF MAGNESIUM (07/21/15) ASSAY OF PHOSPHORUS (07/21/15) ASSAY OF TROPONIN QUANT (07/21/15) CHEST X-RAY 1 VIEW FRONTAL (07/21/15) COMPLETE CBC W/AUTO DIFF WBC (07/21/15) COMPREHEN METABOLIC PANEL (07/21/15) CT ABD & PELVIS W/O CONTRAST (07/21/15) CULTURE AEROBIC IDENTIFY (10/19/14) ELECTROCARDIOGRAM TRACING (07/21/15) EMERGENCY DEPT VISIT (07/21/15) FLUOROGUIDE FOR VEIN DEVICE (01/05/14) MICROBE SUSCEPTIBLE HANSEL (10/19/14) ROUTINE VENIPUNCTURE (07/21/15) THER/PROPH/DIAG INJ SC/IM (07/21/15) THER/PROPH/DIAG IV INF INIT (07/21/15) URINALYSIS AUTO W/SCOPE (07/21/15) URINE BACTERIA CULTURE (10/19/14) Problem List Initiated/Reviewed/Updated: Yes My Orders Last 24 Hours: surgical consult dictated [facility]
[2017-11-01] MEDS ORDERED: Levofloxacin/Dextrose 5%-Water 750 MG in Premix Bag 1 BAG IV SCH (17:00)
--- NOTE | 2017-11-01 20:24 | PCM.PN ---
- General Info Date of Service: 11/01/17 Admission Dx/Problem (Free Text): Chest pain, CHF Functional Status: Reports: Pain Controlled, Tolerating Diet, Ambulating, Urinating, Incentive Spirometry. Denies: New Symptoms - Review of Systems General: Reports: No Symptoms, Weakness. Denies: Fever, Fatigue, Malaise HEENT: Reports: No Symptoms Pulmonary: Reports: Pleuritic Chest Pain. Denies: Shortness of Breath, Cough, Sputum Cardiovascular: Reports: No Symptoms. Denies: Chest Pain, Palpitations Gastrointestinal: Reports: No Symptoms. Denies: Abdominal Pain, Constipation, Diarrhea, Nausea, Vomiting Genitourinary: Reports: Frequency, Retention. Denies: Dysuria, Burning, Pain Musculoskeletal: Reports: Neck Pain, Shoulder Pain. Denies: Back Pain Skin: Reports: No Symptoms Neurological: Reports: No Symptoms Psychiatric: Reports: No Symptoms - Patient Data Vitals - Most Recent: Last Vital Signs Temp 98.1 F 11/01/17 16:06 Pulse 70 11/01/17 16:06 Resp 16 11/01/17 16:06 BP 95/62 11/01/17 16:06 Pulse Ox 97 11/01/17 16:06 Weight - Most Recent: 122 lb 6.4 oz I&O - Last 24 Hours: Intake & Output 11/01/17 11/01/17 11/01/17 06:59 14:59 22:59 Intake Total 100 0 Output Total 400 1175 Balance -300 -1175 Lab Results Last 24 Hours: Laboratory Results - last 24 hr 10/31/17 11/01/17 11/01/17 Range/Units 23:14 06:05 06:05 WBC 8.23 (4.23-9.07) K/mm3 RBC 3.74 L (4.63-6.08) M/mm3 Hgb 11.9 L (13.7-17.5) gm/L Hct 36.1 L (40.1-51.0) % MCV 96.5 H (79.0-92.2) fl MCH 31.8 (25.7-32.2) pg MCHC 33.0 (32.2-35.5) g/dl RDW Std Deviation 42.0 (35.1-43.9) fL Plt Count 230 (163-337) K/mm3 MPV 10.9 (9.4-12.3) fl Neut % (Auto) 77.0 H (34.0-67.9) % Lymph % (Auto) 11.7 L (21.8-53.1) % Oliver % (Auto) 10.7 (5.3-12.2) % Eos % (Auto) 0.4 L (0.8-7.0) Baso % (Auto) 0.1 (0.1-1.2) % Neut # (Auto) 6.34 H (1.78-5.38) K/mm3 Lymph # (Auto) 0.96 L (1.32-3.57) K/mm3 Oliver # (Auto) 0.88 H (0.30-0.82) K/mm3 Eos # (Auto) 0.03 L (0.04-0.54) K/mm3 Baso # (Auto) 0.01 (0.01-0.08) K/mm3 Sodium 141 (136-145) mEq/L Potassium 3.3 L (3.5-5.1) mEq/L Chloride 106 (98-107) mEq/L Carbon Dioxide 25 (21-32) mEq/L Anion Gap 13.3 (5-15) BUN 24 H (7-18) mg/dL Creatinine 1.1 (0.7-1.3) mg/dL Est Cr Clr Drug Dosing 37.64 mL/min Estimated GFR (MDRD) > 60 (>60) mL/min BUN/Creatinine Ratio 21.8 H (14-18) Glucose 100 (83-115) mg/dL Calcium 8.3 L (8.5-10.1) mg/dL Iron (65-175) ug/dL TIBC (100-400) ug/dL % Saturation (20-55) % Transferrin (202-364) mg/dL Troponin I 0.096 H* 0.092 H* (0.00-0.056) ng/mL C-Reactive Protein 15.7 H* (<1.0) mg/dL NT-Pro-B Natriuret Pep 8508 H (0-450) pg/mL Vitamin B12 (193-986) pg/ml Folate (8.6-58.9) ng/mL Mycoplasma pneumon IgM Negative (NEGATIVE) 11/01/17 Range/Units 06:05 WBC (4.23-9.07) K/mm3 RBC (4.63-6.08) M/mm3 Hgb (13.7-17.5) gm/L Hct (40.1-51.0) % MCV (79.0-92.2) fl MCH (25.7-32.2) pg MCHC (32.2-35.5) g/dl RDW Std Deviation (35.1-43.9) fL Plt Count (163-337) K/mm3 MPV (9.4-12.3) fl Neut % (Auto) (34.0-67.9) % Lymph % (Auto) (21.8-53.1) % Oliver % (Auto) (5.3-12.2) % Eos % (Auto) (0.8-7.0) Baso % (Auto) (0.1-1.2) % Neut # (Auto) (1.78-5.38) K/mm3 Lymph # (Auto) (1.32-3.57) K/mm3 Oliver # (Auto) (0.30-0.82) K/mm3 Eos # (Auto) (0.04-0.54) K/mm3 Baso # (Auto) (0.01-0.08) K/mm3 Sodium (136-145) mEq/L Potassium (3.5-5.1) mEq/L Chloride (98-107) mEq/L Carbon Dioxide (21-32) mEq/L Anion Gap (5-15) BUN (7-18) mg/dL Creatinine (0.7-1.3) mg/dL Est Cr Clr Drug Dosing mL/min Estimated GFR (MDRD) (>60) mL/min BUN/Creatinine Ratio (14-18) Glucose (83-115) mg/dL Calcium (8.5-10.1) mg/dL Iron 26 L (65-175) ug/dL TIBC 154 (100-400) ug/dL % Saturation 17 L (20-55) % Transferrin 123 L (202-364) mg/dL Troponin I (0.00-0.056) ng/mL C-Reactive Protein (<1.0) mg/dL NT-Pro-B Natriuret Pep (0-450) pg/mL Vitamin B12 953 (193-986) pg/ml Folate 23.5 (8.6-58.9) ng/mL Mycoplasma pneumon IgM (NEGATIVE) Med Orders - Current: Current Medications Acetaminophen (Tylenol) 650 mg PO Q4H PRN PRN Reason: Pain (Mild 1-3)/fever Hydrocodone Bitart/Acetaminophen ([place] 325-5 Mg) 1 tab PO Q4H PRN PRN Reason: Pain (moderate 4-6) Albuterol/Ipratropium (Duoneb 3.0-0.5 Mg/3 Ml) 3 ml NEB Q4H PRN PRN Reason: Shortness Of Breath/wheezing Ascorbic Acid (Vitamin C) 500 mg PO DAILY [facility] Last Admin: 11/01/17 09:30 Dose: 500 mg Aspirin (Halfprin) 81 mg PO DAILY [facility] Last Admin: 11/01/17 09:32 Dose: 81 mg Bisacodyl (Dulcolax) 5 mg PO DAILY PRN PRN Reason: Constipation Calcium Carbonate/Glycine (Calcium Carbonate) 600 mg PO Q2D [facility] Cyanocobalamin (Vitamin B12) 500 mcg PO DAILY [facility] Last Admin: 11/01/17 09:33 Dose: 500 mcg Docusate Sodium (Colace) 100 mg PO BID PRN PRN Reason: Constipation Enoxaparin Sodium (Lovenox) 40 mg SUBCUT DAILY [facility] Last Admin: 11/01/17 09:34 Dose: 40 mg Famotidine (Pepcid) 20 mg PO DAILY [facility] Last Admin: 11/01/17 09:33 Dose: 20 mg Ferrous Sulfate (Ferrous Sulfate) 325 mg PO BIDMEALS [facility] Finasteride (Proscar) 5 mg PO DAILY [facility] Last Admin: 11/01/17 09:30 Dose: 5 mg Furosemide (Lasix) 20 mg IVPUSH BID [facility] Hydralazine HCl (Apresoline) 10 mg IVPUSH Q6H PRN PRN Reason: Hypertension Levofloxacin/Dextrose 750 mg/ (Premix) 150 mls @ 100 mls/hr IV Q48H [facility] Metoprolol Succinate (Toprol Xl) 12.5 mg PO DAILY [facility] Metoprolol Tartrate (Lopressor) 5 mg IVPUSH Q4H PRN PRN Reason: Tachycardia Morphine Sulfate (Morphine) 0.5 mg IVPUSH Q2H PRN PRN Reason: Pain (severe 7-10) Stop: 11/01/17 22:49 Last Admin: 10/31/17 23:32 Dose: 0.5 mg Nitroglycerin (Nitrostat) 0.4 mg SL Q5M PRN PRN Reason: Chest Pain Ondansetron HCl (Zofran Odt) 4 mg PO Q6H PRN PRN Reason: nausea, able to take PO Ondansetron HCl (Zofran) 4 mg IV Q6H PRN PRN Reason: Nausea/Vomiting Polyethylene Glycol (Miralax) 17 gm PO DAILY PRN PRN Reason: Constipation Potassium Chloride (Potassium Chloride) 40 meq PO BID [facility] Last Admin: 11/01/17 10:41 Dose: 40 meq Senna/Docusate Sodium (Senna Plus) 1 tab PO BID PRN PRN Reason: Constipation Sertraline HCl (Zoloft) 50 mg PO DAILY [facility] Last Admin: 11/01/17 09:33 Dose: 50 mg Simvastatin (Zocor) 10 mg PO BEDTIME [facility] Tamsulosin HCl (Flomax) 0.4 mg PO DAILY [facility] Last Admin: 11/01/17 09:33 Dose: 0.4 mg Discontinued Medications Acetaminophen (Tylenol) 650 mg PO NOW ONE Stop: 10/31/17 15:34 Last Admin: 10/31/17 15:44 Dose: 650 mg Diatrizoate Meglum/Diatrizoate Sod (Gastrografin 37%) 90 ml PO ONETIME ONE Stop: 10/31/17 19:30 Last Admin: 10/31/17 19:53 Dose: 90 ml Enoxaparin Sodium (Lovenox) 40 mg SUBCUT DAILY [facility] Famotidine (Pepcid) 20 mg PO BID [facility] Last Admin: 10/31/17 23:29 Dose: 20 mg Ferrous Sulfate (Ferrous Sulfate) 325 mg PO WITHBREAKFAST [facility] Last Admin: 11/01/17 07:36 Dose: 325 mg Furosemide (Lasix) 40 mg IVPUSH NOW ONE Stop: 10/31/17 17:04 Last Admin: 10/31/17 17:11 Dose: 40 mg Furosemide (Lasix) 40 mg IVPUSH BID [facility] Last Admin: 11/01/17 12:40 Dose: Not Given Sodium Chloride (Normal Saline) 1,000 mls @ 125 mls/hr IV ASDIRECTED [facility] Stop: 10/31/17 16:40 Last Infusion: 10/31/17 16:31 Dose: 0 mls/hr Levofloxacin/Dextrose 750 mg/ (Premix) 150 mls @ 100 mls/hr IV ONETIME ONE Stop: 10/31/17 18:45 Last Admin: 10/31/17 17:23 Dose: 100 mls/hr Iopamidol (Isovue-300 (61%)) 100 ml IVPUSH ONETIME ONE Stop: 10/31/17 19:30 Last Admin: 10/31/17 19:53 Dose: 100 ml Metoprolol Succinate (Toprol Xl) 25 mg PO DAILY [facility] Last Admin: 11/01/17 10:41 Dose: 25 mg Non-Formulary Medication (Ubidecarenone) 200 mg PO DAILY [facility] Sodium Chloride (Saline Flush) 10 ml FLUSH ONETIME ONE Stop: 10/31/17 19:30 Last Admin: 10/31/17 19:53 Dose: 10 ml - Exam Quality Assessment: DVT Prophylaxis General: Alert, Oriented, Cooperative, No Acute Distress HEENT: Pupils Equal, Pupils Reactive, EOMI, Mucous Membr. Moist/[place] Neck: Supple, Trachea Midline, No JVD, No Thyromegaly Lungs: Clear to Auscultation, Normal Respiratory Effort, Decreased Breath Sounds Cardiovascular: Regular Rate, Regular Rhythm GI/Abdominal Exam: Normal Bowel Sounds, Soft, Non-Tender, No Organomegaly, No Distention, No Abnormal Bruit, No Mass, Pelvis Stable (Male) Exam: Deferred Back Exam: Normal Inspection, Full Range of Motion Extremities: Normal Inspection, Normal Range of Motion, Non-Tender, No Pedal Edema, Normal Capillary Refill Peripheral Pulses: 3+: Radial (L), Radial (R), Posterior Tibial (L), Posterior Tibial (R), Dorsalis Pedis (L), Dorsalis Pedis (R) Skin: Warm, Dry, Intact Neurological: No New Focal Deficit Psy/Mental Status: Alert, Normal Affect, Normal Mood - Problem List & Annotations (1) CHF (NYHA class II, ACC/AHA stage C) SNOMED Code(s): 814470747 Code(s): I50.9 - HEART FAILURE, UNSPECIFIED Status: Acute Priority: High Current Visit: Yes (2) Fever of unknown origin SNOMED Code(s): 3972046 Code(s): R50.9 - FEVER, UNSPECIFIED Status: Acute Priority: High Current Visit: Yes (3) History of cancer of stomach SNOMED Code(s): 024792689 Code(s): Z85.028 - PERSONAL HISTORY OF OTHER MALIGNANT NEOPLASM OF STOMACH Status: Chronic Priority: Low Current Visit: Yes (4) Neutrophilic leukocytosis SNOMED Code(s): 606748145 Code(s): D72.9 - DISORDER OF WHITE BLOOD CELLS, UNSPECIFIED Status: Acute Priority: High Current Visit: Yes (5) Pleurisy with effusion SNOMED Code(s): 05600250 Code(s): J90 - PLEURAL EFFUSION, NOT ELSEWHERE CLASSIFIED Status: Acute Priority: High Current Visit: Yes (6) COPD (chronic obstructive pulmonary disease) SNOMED Code(s): 46070761 Code(s): J44.9 - CHRONIC OBSTRUCTIVE PULMONARY DISEASE, UNSPECIFIED Status : Chronic Priority: Medium Current Visit: Yes Qualifiers: COPD type: unspecified COPD Qualified Code(s): J44.9 - Chronic obstructive pulmonary disease, unspecified (7) BPH (benign prostatic hyperplasia) SNOMED Code(s): 835902381 Code(s): N40.0 - BENIGN PROSTATIC HYPERPLASIA WITHOUT LOWER URINRY TRACT SYMP Status: Chronic Priority: Medium Current Visit: Yes Qualifiers: Lower urinary tract symptom presence: symptoms present Lower urinary tract symptom detail: urinary retention Qualified Code(s): N40.1 - Benign prostatic hyperplasia with lower urinary tract symptoms; R33.8 - Other retention of urine ; R33.8 - Other retention of urine (8) Arthritis SNOMED Code(s): 8634170 Code(s): M19.90 - UNSPECIFIED OSTEOARTHRITIS, UNSPECIFIED SITE Status: Chronic Priority: Low Current Visit: No (9) Osteoarthritis SNOMED Code(s): 229332102 Code(s): M19.90 - UNSPECIFIED OSTEOARTHRITIS, UNSPECIFIED SITE Status: Chronic Priority: Low Current Visit: No Qualifiers: Osteoarthritis location: multiple joints Osteoarthritis type: primary Qualified Code(s): M15.0 - Primary generalized (osteo)arthritis - Problem List Review Problem List Initiated/Reviewed/Updated: Yes - My Orders Last 24 Hours: My Active Orders 10/31/17 22:47 Consult to Case Management [CONS] Routine Consult to [employer] [CONS] Routine OT Evaluation and Treatment [CONS] Routine PT Evaluation and Treatment [CONS] Routine Respiratory Care Assess and Treatment [CONS] Routine Acetaminophen [Tylenol] 650 mg PO Q4H PRN Acetaminophen/HYDROcodone [[place]ox[place] 325-5 MG] 1 tab PO Q4H PRN Albuterol/Ipratropium [DuoNeb 3.0-0.5 MG/3 ML] 3 ml NEB Q4H PRN Bisacodyl [Dulcolax] 5 mg PO DAILY PRN Docusate Sodium [Colace] 100 mg PO BID PRN Docusate Sodium/Sennosides [Senna Plus] 1 tab PO BID PRN Morphine 0.5 mg IVPUSH Q2H PRN Ondansetron [Zofran ODT] 4 mg PO Q6H PRN Ondansetron [Zofran] 4 mg IV Q6H PRN Polyethylene Glycol 3350 [MiraLAX] 17 gm PO DAILY PRN Resuscitation Status Routine 10/31/17 22:48 Intake and Output [RC] 04,16 VTE/DVT Education [RC] , Vital Signs [RC] Q4HR Antiembolic Hose [OM.PC] Per Unit Routine 10/31/17 22:49 Antiembolic Devices [RC] 10/31/17 22:52 Metoprolol Tartrate [Lopressor] 5 mg IVPUSH Q4H PRN hydrALAZINE [Apresoline] 10 mg IVPUSH Q6H PRN Precautions [COMM] Routine 10/31/17 22:53 Nitroglycerin [Nitrostat] 0.4 mg SL Q5M PRN 11/01/17 09:00 Ascorbic Acid [Vitamin C] 500 mg PO DAILY Aspirin [Halfprin] 81 mg PO DAILY Cyanocobalamin (Vitamin B12) [Vitamin B12] 500 mcg PO DAILY Enoxaparin [Lovenox] 40 mg SUBCUT DAILY Famotidine [Pepcid] 20 mg PO DAILY Finasteride [Proscar] 5 mg PO DAILY Sertraline [Zoloft] 50 mg PO DAILY Tamsulosin [Flomax] 0.4 mg PO DAILY 11/01/17 21:00 Simvastatin [Zocor] 10 mg PO BEDTIME 11/01/17 Breakfast Fluid Restriction [DIET] 11/02/17 05:11 BASIC METABOLIC PANEL,BMP [CHEM] AM CBC WITH AUTO DIFF [HEME] AM CRP [C-REACTIVE PROTEIN] [CHEM] AM PRO B-TYPE NATRIUR PEPT,BNPPRO [CHEM] DAILY 11/02/17 07:00 Ferrous Sulfate 325 mg PO BIDMEALS 11/02/17 08:00 CXR [Chest 2V] [CR] Routine 11/02/17 09:00 Calcium Carbonate 600 mg PO Q2D 11/02/17 17:00 Levofloxacin/Dextrose 5%-Water [Levaquin in D5W 750 MG/150 ML] 750 mg Premix Bag 1 bag IV Q48H 11/03/17 05:11 BASIC METABOLIC PANEL,BMP [CHEM] AM CBC WITH AUTO DIFF [HEME] AM CRP [C-REACTIVE PROTEIN] [CHEM] AM PRO B-TYPE NATRIUR PEPT,BNPPRO [CHEM] DAILY 11/04/17 05:11 BASIC METABOLIC PANEL,BMP [CHEM] AM CBC WITH AUTO DIFF [HEME] AM CRP [C-REACTIVE PROTEIN] [CHEM] AM PRO B-TYPE NATRIUR PEPT,BNPPRO [CHEM] DAILY - Plan Plan:: I/P Acute: Suspected new onset CHF -In ED with pleurisy with pain over past 3 days, worsening-improved now -Hx/o NC, pacemaker - 100% paced rhythm on 12-lead -Family reports high salt intake, occasional pedal edema -BNP 48650 -->8508 -Echo - pending -Lasix given in ED - continue BID to diuresis -Fluid and sodium restriction -[facility] [facility] consult for CHF diet Elevated troponin -Troponin 0.085 in ED-->0.096-->0.092 -CK-MB 1.3 -Likely due to demand ischemia from above -Hx/o NC -Will repeat Elevated CRP -15.9-->15.7 -hx/o severe arthritis -Possibly due to chronic inflammatory state - i.e. severe arthritis -Monitor Leukocytosis -WBC 13.02-->8.23 -[place] care coordinator ED per provider report -No documented fever, reports occasional productive cough with clear sputum -UA, CXR, Abdomen/Pelvis CT, influnza screen: all negative for acute findings -Chest CT - Bilateral pleural effusions and bibasilar atelectasis - IS/RT -Emphysematous changes -Small pericardial effusion -Blood cultures obtained -Family reports pt. has had inflamed "wisdom tooth" - dentist is following -Mycoplasma pneumonia--Negative, strep pneumoniae ordered -Levaquin 750mg given in ED - continue -Repeat CXR in 24-48 hrs Anemia -Hgb 12.2-->11.9, Hct 37.6-->36.1, macrocytic -Hx/o BUSTER and B-12 deficiency -Continue home supplementation -Make ferrous sulfate BID -B12- 953, Folate -23.5, Iron panel: Iron-26, TIBC-154, % sat-17, Transferrin 123 -Has reported poor oral intake over past few days -No hematochezia, hematemesis, melena, or obvious bleeding Pleurisy, improving -Pain across chest which is worse with deep inspiration -No recent trauma -CXR negative for acute findings -Hx/o severe arthritis and osteoarthritis, COPD -Pain medications as ordered -Monitor Urinary retention -200mL post void -Hx/o BPH, has seen urology in past but has been several years -UA negative -Family reports increased frequency with minimal output -"dribbles" -Home Flomax and finasteride -Monitor -Will likely need urology f/u after discharge Chronic: HLD HTN - home meds and PRN BB, hydralizine Hx/o NC Pacemaker with 100% paced rhythm Dyspnea on exhertion COPD - duoneb/RT if needed BPH Arthritis Back pain OA 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 Guerrero consult - outpatient EGD Code status: Full Code; PCP: Dr. Elizalde at [facility] here in [place].
[2017-11-01] MEDS: Simvastatin 10 MG Tab PO SCH (21:52)
[2017-11-01] MEDS: Furosemide 20 MG/2 ML VIAL IVPUSH SCH (21:53)
[2017-11-02] MEDS: Ferrous Sulfate 325 MG Tab PO SCH ×2 (06:33→16:11)
[2017-11-02] MEDS: Dronabinol 2.5 MG Cap PO SCH ×2 (06:33→16:11)
--- NOTE | 2017-11-02 10:09 | CONS ---
CONSULTING PHYSICIAN: Clay Guerrero MD DATE OF CONSULTATION: 11/01/2017 HISTORY OF PRESENT ILLNESS: This is an 82-year-old who presented to the emergency room yesterday with chest pain over the upper abdomen, anterior chest, and back. It started about 3 days ago. Lasted for 12 hours and settled in the left precordial area. He had a nonproductive cough. He has a poor appetite. History of gastric carcinoma, resected 4 years ago through gastric resection. He was placed into showed some diminished in both lung davis, mild kyphoscoliosis. The patient was admitted to the hospital with congestive heart failure with elevated troponin levels and BNP of 12,000. He had congestive heart failure class 2, stage C. He had a fever of unknown etiology, some prostatism, and neutrophilic leukocytosis history, and history of cancer to the stomach with poor appetite. Some weight loss was noted. I was asked to see him with reference to his gastric cancer. It was noted that his hemoglobin was about [address] scan did not show any lymphadenopathy in the abdomen or the chest. MEDICATIONS: Per medication reconciliation reviewed. PAST MEDICAL HISTORY: COPD, BPH, arthritis, degenerative joint disease, gastric cancer, pacemaker, history of MD, hypertension, and COPD. FAMILY HISTORY: Negative. SOCIAL HISTORY: No smoking. No drinking. ALLERGIES: No known allergies. REVIEW OF SYSTEMS: No chest pain at the time or shortness of breath at the time of the interview. This is resolved. No nausea, vomiting, indigestion, hematochezia, or hematemesis. No swelling of the legs he states. PHYSICAL EXAMINATION: GENERAL: Alert, cooperative male. EYES: Unremarkable. Sclerae white. NECK: Supple. No nodes. No thyromegaly. LUNGS: Breath sounds were better. I did not hear any rales. HEART: Tones regular rate, pacemaker present. ABDOMEN: Soft. No tenderness, guarding, or rebound. No swelling or adenopathy around the umbilicus. EXTREMITIES: Upper and lower extremities, no angulation deformities. MUSCULOSKELETAL: Moves all 4 extremities. Some degenerative joint disease. SKIN: Warm, dry. NEUROLOGIC: No sensorineural deficit. PSYCHIATRIC: Normal. Oriented x3. ASSESSMENT: 1. Congestive heart failure, improving. 2. Fevers, improving with antibiotics. PLAN: Recommend that he be referred to the outpatient clinic. We will further discuss the procedure of an upper GI endoscopy. ROSIE /[id number]
[2017-11-02] MEDS: Cyanocobalamin (Vitamin B12) 1,000 MCG Tab PO SCH (10:20)
[2017-11-02] MEDS: Aspirin 81 MG Tab.EC PO SCH (10:21)
[2017-11-02] MEDS: Sertraline 50 MG Tab PO SCH (10:23)
[2017-11-02] MEDS: Finasteride 5 MG Tab PO SCH (10:23)
[2017-11-02] MEDS: Ascorbic Acid 500 MG Tab PO SCH (10:23)
[2017-11-02] MEDS: Famotidine 20 MG Tab PO SCH (10:23)
[2017-11-02] MEDS: Enoxaparin 40 MG/0.4 ML Syringe SUBCUT SCH (10:23)
[2017-11-02] MEDS: Tamsulosin 0.4 MG Cap.ER PO SCH (10:23)
[2017-11-02] MEDS: Potassium Chloride 10% 20 MEQ/15 ML Soln 30 ML UD Cup PO SCH ×2 (10:23→21:58)
[2017-11-02] MEDS: Furosemide 20 MG/2 ML VIAL IVPUSH SCH ×2 (10:24→21:59)
[2017-11-02] MEDS: Metoprolol Succinate 25 MG Tab.ER PO SCH (10:31)
[2017-11-02] MEDS: Calcium Carbonate 600 MG Tab PO SCH (10:49)
--- NOTE | 2017-11-02 11:14 | CR ---
Chest: Two views of the chest were obtained. Comparison: Previous chest x-ray of 10/31/17. Heart has a slight left ventricular configuration. Tortuous thoracic aorta is seen. Pacemaker noted. Lungs are hyperinflated compatible with emphysematous change. No acute lung densities are seen. Scattered degenerative change within the spine is seen. Right shoulder prosthesis is noted. Old trauma to the distal left clavicle. Impression: 1. Emphysematous change. Other incidental findings. Nothing acute is seen. Diagnostic code #2
[2017-11-02] MEDS: Levofloxacin 250 MG Tab PO SCH (12:17)
[2017-11-02] MEDS ORDERED: RABEPRAZOLE 20 MG PO SCH (15:30)
--- NOTE | 2017-11-02 16:50 | PCM.PN ---
- General Info Date of Service: 11/02/17 Admission Dx/Problem (Free Text): Chest pain, CHF Functional Status: Reports: Pain Controlled, Tolerating Diet, Ambulating, Urinating. Denies: New Symptoms - Review of Systems General: Reports: Weakness (improving ). Denies: Fever, Fatigue, Malaise, Chills HEENT: Reports: No Symptoms Pulmonary: Reports: No Symptoms Cardiovascular: Reports: No Symptoms Gastrointestinal: Reports: No Symptoms Genitourinary: Reports: Frequency, Retention. Denies: Dysuria, Burning, Pain Musculoskeletal: Reports: Shoulder Pain, Back Pain Skin: Reports: No Symptoms Neurological: Reports: No Symptoms Psychiatric: Reports: No Symptoms - Patient Data Vitals - Most Recent: Last Vital Signs Temp 97.5 F 11/02/17 12:04 Pulse 71 11/02/17 12:04 Resp 20 11/02/17 12:04 BP 101/66 11/02/17 12:04 Pulse Ox 95 11/02/17 12:04 Weight - Most Recent: 120 lb I&O - Last 24 Hours: Intake & Output 11/02/17 11/02/17 11/02/17 06:59 14:59 22:59 Intake Total 350 300 Output Total 450 Balance -100 300 Lab Results Last 24 Hours: Laboratory Results - last 24 hr 11/02/17 11/02/17 Range/Units 05:28 05:28 WBC 8.61 (4.23-9.07) K/mm3 RBC 3.59 L (4.63-6.08) M/mm3 Hgb 11.4 L (13.7-17.5) gm/L Hct 34.5 L (40.1-51.0) % MCV 96.1 H (79.0-92.2) fl MCH 31.8 (25.7-32.2) pg MCHC 33.0 (32.2-35.5) g/dl RDW Std Deviation 42.0 (35.1-43.9) fL Plt Count 252 (163-337) K/mm3 MPV 10.9 (9.4-12.3) fl Neut % (Auto) 74.1 H (34.0-67.9) % Lymph % (Auto) 14.1 L (21.8-53.1) % [place] % (Auto) 10.3 (5.3-12.2) % Eos % (Auto) 1.0 (0.8-7.0) Baso % (Auto) 0.2 (0.1-1.2) % Neut # (Auto) 6.37 H (1.78-5.38) K/mm3 Lymph # (Auto) 1.21 L (1.32-3.57) K/mm3 [place] # (Auto) 0.89 H (0.30-0.82) K/mm3 Eos # (Auto) 0.09 (0.04-0.54) K/mm3 Baso # (Auto) 0.02 (0.01-0.08) K/mm3 Sodium 141 (136-145) mEq/L Potassium 3.6 (3.5-5.1) mEq/L Chloride 107 (98-107) mEq/L Carbon Dioxide 26 (21-32) mEq/L Anion Gap 11.6 (5-15) BUN 27 H (7-18) mg/dL Creatinine 1.3 (0.7-1.3) mg/dL Est Cr Clr Drug Dosing 31.85 mL/min Estimated GFR (MDRD) 53 (>60) mL/min BUN/Creatinine Ratio 20.8 H (14-18) Glucose 97 (83-115) mg/dL Calcium 8.1 L (8.5-10.1) mg/dL C-Reactive Protein 10.2 H* (<1.0) mg/dL NT-Pro-B Natriuret Pep 5011 H (0-450) pg/mL Med Orders - Current: Current Medications Acetaminophen (Tylenol) 650 mg PO Q4H PRN PRN Reason: Pain (Mild 1-3)/fever Hydrocodone Bitart/Acetaminophen (Home 325-5 Mg) 1 tab PO Q4H PRN PRN Reason: Pain (moderate 4-6) Albuterol/Ipratropium (Duoneb 3.0-0.5 Mg/3 Ml) 3 ml NEB Q4H PRN PRN Reason: Shortness Of Breath/wheezing Ascorbic Acid (Vitamin C) 500 mg PO DAILY [facility] Last Admin: 11/02/17 10:23 Dose: 500 mg Aspirin (Halfprin) 81 mg PO DAILY [facility] Last Admin: 11/02/17 10:21 Dose: 81 mg Bisacodyl (Dulcolax) 5 mg PO DAILY PRN PRN Reason: Constipation Calcium Carbonate/Glycine (Calcium Carbonate) 600 mg PO Q2D [facility] Last Admin: 11/02/17 10:49 Dose: 600 mg Docusate Sodium (Colace) 100 mg PO BID PRN PRN Reason: Constipation Dronabinol (Marinol) 2.5 mg PO BIDAC [facility] Last Admin: 11/02/17 16:11 Dose: 2.5 mg Enoxaparin Sodium (Lovenox) 40 mg SUBCUT DAILY [facility] Last Admin: 11/02/17 10:23 Dose: 40 mg Famotidine (Pepcid) 20 mg PO DAILY [facility] Last Admin: 11/02/17 10:23 Dose: 20 mg Ferrous Sulfate (Ferrous Sulfate) 325 mg PO BIDMEALS [facility] Last Admin: 11/02/17 16:11 Dose: 325 mg Finasteride (Proscar) 5 mg PO DAILY [facility] Last Admin: 11/02/17 10:23 Dose: 5 mg Furosemide (Lasix) 20 mg IVPUSH BID [facility] Last Admin: 11/02/17 10:24 Dose: 20 mg Hydralazine HCl (Apresoline) 10 mg IVPUSH Q6H PRN PRN Reason: Hypertension Levofloxacin (Levaquin) 250 mg PO Q24H [facility] Last Admin: 11/02/17 12:17 Dose: 250 mg Metoprolol Succinate (Toprol Xl) 12.5 mg PO DAILY [facility] Last Admin: 11/02/17 10:31 Dose: 12.5 mg Metoprolol Tartrate (Lopressor) 5 mg IVPUSH Q4H PRN PRN Reason: Tachycardia Nitroglycerin (Nitrostat) 0.4 mg SL Q5M PRN PRN Reason: Chest Pain Ondansetron HCl (Zofran Odt) 4 mg PO Q6H PRN PRN Reason: nausea, able to take PO Ondansetron HCl (Zofran) 4 mg IV Q6H PRN PRN Reason: Nausea/Vomiting Polyethylene Glycol (Miralax) 17 gm PO DAILY PRN PRN Reason: Constipation Potassium Chloride (Potassium Chloride) 40 meq PO BID [facility] Last Admin: 11/02/17 10:23 Dose: 40 meq Senna/Docusate Sodium (Senna Plus) 1 tab PO BID PRN PRN Reason: Constipation Sertraline HCl (Zoloft) 50 mg PO DAILY [facility] Last Admin: 11/02/17 10:23 Dose: 50 mg Simvastatin (Zocor) 10 mg PO BEDTIME [facility] Last Admin: 11/01/17 21:52 Dose: 10 mg Tamsulosin HCl (Flomax) 0.4 mg PO DAILY [facility] Last Admin: 11/02/17 10:23 Dose: 0.4 mg Discontinued Medications Acetaminophen (Tylenol) 650 mg PO NOW ONE Stop: 10/31/17 15:34 Last Admin: 10/31/17 15:44 Dose: 650 mg Cyanocobalamin (Vitamin B12) 500 mcg PO DAILY [facility] Last Admin: 11/02/17 10:20 Dose: 500 mcg Diatrizoate Meglum/Diatrizoate Sod (Gastrografin 37%) 90 ml PO ONETIME ONE Stop: 10/31/17 19:30 Last Admin: 10/31/17 19:53 Dose: 90 ml Enoxaparin Sodium (Lovenox) 40 mg SUBCUT DAILY [facility] Famotidine (Pepcid) 20 mg PO BID [facility] Last Admin: 10/31/17 23:29 Dose: 20 mg Ferrous Sulfate (Ferrous Sulfate) 325 mg PO WITHBREAKFAST [facility] Last Admin: 11/01/17 07:36 Dose: 325 mg Furosemide (Lasix) 40 mg IVPUSH NOW ONE Stop: 10/31/17 17:04 Last Admin: 10/31/17 17:11 Dose: 40 mg Furosemide (Lasix) 40 mg IVPUSH BID [facility] Last Admin: 11/01/17 12:40 Dose: Not Given Sodium Chloride (Normal Saline) 1,000 mls @ 125 mls/hr IV ASDIRECTED [facility] Stop: 10/31/17 16:40 Last Infusion: 10/31/17 16:31 Dose: 0 mls/hr Levofloxacin/Dextrose 750 mg/ (Premix) 150 mls @ 100 mls/hr IV ONETIME ONE Stop: 10/31/17 18:45 Last Admin: 10/31/17 17:23 Dose: 100 mls/hr Levofloxacin/Dextrose 750 mg/ (Premix) 150 mls @ 100 mls/hr IV Q48H [facility] Iopamidol (Isovue-300 (61%)) 100 ml IVPUSH ONETIME ONE Stop: 10/31/17 19:30 Last Admin: 10/31/17 19:53 Dose: 100 ml Metoprolol Succinate (Toprol Xl) 25 mg PO DAILY [facility] Last Admin: 11/01/17 10:41 Dose: 25 mg Morphine Sulfate (Morphine) 0.5 mg IVPUSH Q2H PRN PRN Reason: Pain (severe 7-10) Stop: 11/01/17 22:49 Last Admin: 10/31/17 23:32 Dose: 0.5 mg Non-Formulary Medication (Ubidecarenone) 200 mg PO DAILY [facility] Non-Formulary Medication (Rabeprazole [Aciphex]) 20 mg PO DAILY [facility] Last Admin: 11/02/17 15:43 Dose: Not Given Sodium Chloride (Saline Flush) 10 ml FLUSH ONETIME ONE Stop: 10/31/17 19:30 Last Admin: 10/31/17 19:53 Dose: 10 ml - Exam Quality Assessment: DVT Prophylaxis General: Alert, Oriented, Cooperative, No Acute Distress HEENT: Pupils Equal, Pupils Reactive, EOMI, Mucous Membr. Moist/[place] Neck: Supple, Trachea Midline, No JVD, No Thyromegaly Lungs: Clear to Auscultation, Normal Respiratory Effort, Decreased Breath Sounds Cardiovascular: Regular Rate, Regular Rhythm GI/Abdominal Exam: Normal Bowel Sounds, Soft, Non-Tender, No Organomegaly, No Distention, No Abnormal Bruit, No Mass, Pelvis Stable (Male) Exam: Deferred Back Exam: Normal Inspection, Full Range of Motion Extremities: Normal Inspection, Normal Range of Motion, Non-Tender, No Pedal Edema, Normal Capillary Refill, Other (severe arthritic changes ) Peripheral Pulses: 3+: Radial (L), Radial (R), Posterior Tibial (L), Posterior Tibial (R), Dorsalis Pedis (L), Dorsalis Pedis (R) Skin: Warm, Dry, Intact Neurological: No New Focal Deficit Psy/Mental Status: Alert, Normal Affect, Normal Mood - Problem List & Annotations (1) CHF (NYHA class II, ACC/AHA stage C) SNOMED Code(s): 753493168 Code(s): I50.9 - HEART FAILURE, UNSPECIFIED Status: Acute Priority: High Current Visit: Yes (2) Fever of unknown origin SNOMED Code(s): 4652124 Code(s): R50.9 - FEVER, UNSPECIFIED Status: Acute Priority: High Current Visit: Yes (3) History of cancer of stomach SNOMED Code(s): 396394347 Code(s): Z85.028 - PERSONAL HISTORY OF OTHER MALIGNANT NEOPLASM OF STOMACH Status: Chronic Priority: Low Current Visit: Yes (4) Neutrophilic leukocytosis SNOMED Code(s): 121211991 Code(s): D72.9 - DISORDER OF WHITE BLOOD CELLS, UNSPECIFIED Status: Acute Priority: High Current Visit: Yes (5) Pleurisy with effusion SNOMED Code(s): 11030010 Code(s): J90 - PLEURAL EFFUSION, NOT ELSEWHERE CLASSIFIED Status: Acute Priority: High Current Visit: Yes (6) COPD (chronic obstructive pulmonary disease) SNOMED Code(s): 91351538 Code(s): J44.9 - CHRONIC OBSTRUCTIVE PULMONARY DISEASE, UNSPECIFIED Status : Chronic Priority: Medium Current Visit: Yes Qualifiers: COPD type: unspecified COPD Qualified Code(s): J44.9 - Chronic obstructive pulmonary disease, unspecified (7) BPH (benign prostatic hyperplasia) SNOMED Code(s): 764018498 Code(s): N40.0 - BENIGN PROSTATIC HYPERPLASIA WITHOUT LOWER URINRY TRACT SYMP Status: Chronic Priority: Medium Current Visit: Yes Qualifiers: Lower urinary tract symptom presence: symptoms present Lower urinary tract symptom detail: urinary retention Qualified Code(s): N40.1 - Benign prostatic hyperplasia with lower urinary tract symptoms; R33.8 - Other retention of urine ; R33.8 - Other retention of urine (8) Arthritis SNOMED Code(s): 6074480 Code(s): M19.90 - UNSPECIFIED OSTEOARTHRITIS, UNSPECIFIED SITE Status: Chronic Priority: Low Current Visit: No (9) Osteoarthritis SNOMED Code(s): 004296419 Code(s): M19.90 - UNSPECIFIED OSTEOARTHRITIS, UNSPECIFIED SITE Status: Chronic Priority: Low Current Visit: No Qualifiers: Osteoarthritis location: multiple joints Osteoarthritis type: primary Qualified Code(s): M15.0 - Primary generalized (osteo)arthritis - Problem List Review Problem List Initiated/Reviewed/Updated: Yes - My Orders Last 24 Hours: My Active Orders 11/01/17 21:00 Simvastatin [Zocor] 10 mg PO BEDTIME 11/02/17 06:00 Dronabinol [Marinol] 2.5 mg PO BIDAC 11/02/17 07:00 Ferrous Sulfate 325 mg PO BIDMEALS 11/02/17 09:00 Calcium Carbonate 600 mg PO Q2D 11/03/17 05:11 BASIC METABOLIC PANEL,BMP [CHEM] AM CBC WITH AUTO DIFF [HEME] AM CRP [C-REACTIVE PROTEIN] [CHEM] AM PRO B-TYPE NATRIUR PEPT,BNPPRO [CHEM] DAILY 11/04/17 05:11 BASIC METABOLIC PANEL,BMP [CHEM] AM CBC WITH AUTO DIFF [HEME] AM CRP [C-REACTIVE PROTEIN] [CHEM] AM PRO B-TYPE NATRIUR PEPT,BNPPRO [CHEM] DAILY - Plan Plan:: I/P Acute: New onset CHF -In ED with pleurisy with pain over past 3 days, worsening-improved now -Hx/o CO, pacemaker - 100% paced rhythm on 12-lead -Family reports high salt intake, occasional pedal edema -BNP 43515 -->8508-->5011 -Echo - 40-45%EF, Moderate concentric LVH, Mild to Mod TV regurg -Lasix given in ED - continue BID to diuresis -Fluid and sodium restriction -[employer] consult for CHF diet Elevated troponin, trending downward -Troponin 0.085 in ED-->0.096-->0.092 -CK-MB 1.3 -Likely due to demand ischemia from above -Hx/o CO -Will repeat Elevated CRP, improving -15.9-->15.7-->10.2 -hx/o severe arthritis -Possibly due to chronic inflammatory state - i.e. severe arthritis -Monitor Leukocytosis-->resolved -WBC 13.02-->8.23-->8.61 -[place] [facility] [place] ED per provider report -No documented fever, reports occasional productive cough with clear sputum -UA, CXR, Abdomen/Pelvis CT, influnza screen: all negative for acute findings -Chest CT - Bilateral pleural effusions and bibasilar atelectasis - IS/RT -Emphysematous changes -Small pericardial effusion -Blood cultures obtained - negative after 2 days -Family reports pt. has had inflamed "wisdom tooth" - dentist is following -Mycoplasma pneumonia--Negative, strep pneumoniae --negative -Levaquin 750mg given in ED - continue; Switch to PO today -Repeat CXR in 24-48 hrs--> nothing acute Anemia -Hgb 12.2-->11.9-->11.4, Hct 37.6-->36.1-->34.5, macrocytic -Hx/o BUSTER and B-12 deficiency -Continue home supplementation -Make ferrous sulfate BID -B12- 953, Folate -23.5, Iron panel: Iron-26, TIBC-154, % sat-17, Transferrin 123 -Has reported poor oral intake over past few days -No hematochezia, hematemesis, melena, or obvious bleeding Pleurisy, improving to resolved -Pain across chest which is worse with deep inspiration -No recent trauma -CXR negative for acute findings -Hx/o severe arthritis and osteoarthritis, COPD -Pain medications as ordered -Monitor Urinary retention -200mL post void -Hx/o BPH, has seen urology in past but has been several years -UA negative -Family reports increased frequency with minimal output -"dribbles" -Home Flomax and finasteride -Monitor -Will likely need urology f/u after discharge Chronic: HLD HTN - home meds and PRN BB, hydralizine Hx/o CO Pacemaker with 100% paced rhythm Dyspnea on exhertion COPD - duoneb/RT if needed BPH Arthritis Back pain OA 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 Guerrero consult - outpatient EGD Possible cardiology consult, outpatient stress test Heat pack for back/shoulders Code status: Full Code; PCP: Dr. Elizalde at [facility] here in [place].
[2017-11-02] MEDS ORDERED: Levofloxacin/Dextrose 5%-Water 750 MG in Premix Bag 1 BAG IV SCH (17:00)
[2017-11-02] MEDS: Simvastatin 10 MG Tab PO SCH (21:58)
[2017-11-03] MEDS: Dronabinol 2.5 MG Cap PO SCH ×2 (05:57→16:22)
[2017-11-03] MEDS: Ferrous Sulfate 325 MG Tab PO SCH ×2 (06:02→16:22)
[2017-11-03] MEDS: Potassium Chloride 10% 20 MEQ/15 ML Soln 30 ML UD Cup PO SCH (08:37)
[2017-11-03] MEDS: Enoxaparin 30 MG/0.3 ML Syringe SUBCUT SCH (08:37)
[2017-11-03] MEDS: Cyanocobalamin (Vitamin B12) 1,000 MCG Tab PO SCH (08:37)
[2017-11-03] MEDS: Tamsulosin 0.4 MG Cap.ER PO SCH (08:38)
[2017-11-03] MEDS: Ascorbic Acid 500 MG Tab PO SCH (08:39)
[2017-11-03] MEDS: Finasteride 5 MG Tab PO SCH (08:39)
[2017-11-03] MEDS: Aspirin 81 MG Tab.EC PO SCH (08:39)
[2017-11-03] MEDS: Famotidine 20 MG Tab PO SCH (08:40)
[2017-11-03] MEDS: Furosemide 20 MG/2 ML VIAL IVPUSH SCH (08:40)
[2017-11-03] MEDS: Sertraline 50 MG Tab PO SCH (08:40)
[2017-11-03] MEDS: Metoprolol Succinate 25 MG Tab.ER PO SCH (08:46)
[2017-11-03] MEDS: traMADol 50 MG Tab PO PRN ×2 (11:14→17:52)
[2017-11-03] MEDS: Levofloxacin 250 MG Tab PO SCH (11:14)
--- NOTE | 2017-11-03 14:58 | PCM.DCSUM1 ---
Discharge Summary - Hospital Course Free Text/Narrative:: Jose Armando Chamberlain is a 82 yo male who is to our ED today with pleuritic chest pain that started about 3 days ago. He states it initially started across his upper back midscapular area bilaterally. Is aggravated by deep breathing. It then progressed to become anterior as well as the last 12 hours and seemed to settle in his left precordium. It is reported nonproductive cough. 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 Appetite is very poor the past several days. He does have increased dyspnea on exertion. 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 There is been no evidence of recurrent disease process, however he has not had a PET scan some time. He reports he is unable to eat much but is better than when it was initially performed. He reports weight is stable. Denies any night sweats. Once in the ED twelve-lead was a obtained shows 100% paced rhythm at 70 bpm. There is left axis deviation and an evident complete heart block. Nonspecific ventricular conduction delay. Temp is 98.8 Fahrenheit. Pulse 81. Respirations 20. Blood pressure 130/72. Pulse ox 98%. Blood cultures were obtained. Labs were obtained: WBC is elevated at 13.02. Hemoglobin low at 12.2. Hematocrit low at 37.6. He is macrocytic. Blood sugar 256,000. Neutrophils are elevated at 87%. There is no bandemia. ESR is elevated at 84. PT is 11.8. INR is 1.08. Sodium was good at 140. Potassium 4.0. Chloride 105. Maxzide 24. Anion gap is 15.0. BUN is 20. Creatinine 1.1. EGFR is greater than 60. He is noted to have a pacemaker in the left anterior chest. Chest x-rays performed and interpreted by Dr. Sarabia as showing a enlarged heart with tortuous thoracic aorta. Pacemaker is present. Right shoulder prosthesis is seen. Lungs are clear with no acute infiltrates. All traumas noted left shoulder as well as previous left shoulder surgery. Scoliosis and degenerative changes are noted within the spine. CT of the chest is obtained and interpreted by Dr. Sarabia as "1. Small bilateral pleural effusions and bibasilar atelectasis. 2. Emphysematous change. 3. Small pericardial effusion other incidental findings. CT of the abdomen and pelvis obtained and interpreted by Dr. Sarabia as "1. Several findings as noted. Nothing acute is appreciated on CT study of the abdomen and pelvis." He did have a post void bladder scan which showed 200 mils of urine postvoid. - Discharge Data Discharge Date: 11/04/17 Discharge Disposition: Home, Self-Care 01 Condition: Good - Patient Summary/Data Consults: Consultations 10/31/17 22:47 Consult to Case Management [CONS] Routine Consult to Stove Fitter [CONS] Routine OT Evaluation and Treatment [CONS] Routine PT Evaluation and Treatment [CONS] Routine Respiratory Care Assess and Treatment [CONS] Routine 11/01/17 09:56 Consult to Physician [CONS] Routine 11/02/17 09:30 Consult to Leather Seasoner [CONS] Routine - Patient Instructions Diet: Usual Diet as Tolerated Activity: As Tolerated Driving: May Drive Today Showering/Bathing: May Shower Notify Provider of: Fever, Nausea and/or Vomiting - Discharge Plan Prescriptions/Med Rec: Calcium Carbonate 600 mg PO Q2D #30 tablet Cyanocobalamin (Vitamin B12) [Vitamin B12] 500 mcg PO DAILY #30 tablet Ferrous Sulfate 325 mg PO WITHBREAKFAST #30 tablet Hydrochlorothiazide 25 mg PO DAILY #30 tab Hydrochlorothiazide 25 mg PO DAILY #30 tablet Levofloxacin [Levaquin] 250 mg PO Q24H #4 tablet Nitroglycerin [IJP: Nitroglycerin] 0.4 mg SL Q5M PRN #100 tablet, sublingual PRN Reason: Chest Pain Potassium Chloride 10 meq PO DAILY #30 capsule.er Potassium Chloride [Klor-Con 10] 10 meq PO DAILY #30 tab.er traMADol [Ultram] 50 mg PO Q6H PRN #30 tablet PRN Reason: Pain (Moderate 4-6) Home Medications: Home Meds Aspirin [Halfprin] 81 mg PO DAILY 07/21/15 [History] Finasteride [Proscar] 5 mg PO DAILY 07/21/15 [History] Tamsulosin [Flomax] 0.4 mg PO DAILY 07/21/15 [History] Ascorbate Calcium [Vitamin C] 500 mg PO DAILY 10/31/17 [History] Metoprolol Succinate [Toprol XL] 12.5 mg PO BEDTIME 10/31/17 [History] Pravastatin Sodium [Pravastatin (Pravachol)] 20 mg PO BEDTIME 10/31/17 [History] Sertraline HCl 50 mg PO DAILY 10/31/17 [History] Ubidecarenone [Coq-10] 200 mg PO DAILY 10/31/17 [History] Dronabinol [Marinol] 2.5 mg PO BIDAC 11/01/17 [History] RABEprazole [Aciphex] 20 mg PO DAILY 11/02/17 [History] Calcium Carbonate 600 mg PO Q2D #30 tablet 11/03/17 [Rx] Cyanocobalamin (Vitamin B12) [Vitamin B12] 500 mcg PO DAILY #30 tablet 11/03/17 [Rx] Ferrous Sulfate 325 mg PO WITHBREAKFAST #30 tablet 11/03/17 [Rx] Hydrochlorothiazide 25 mg PO DAILY #30 tablet 11/03/17 [Rx] Levofloxacin [Levaquin] 250 mg PO Q24H #4 tablet 11/03/17 [Rx] Nitroglycerin [IJP: Nitroglycerin] 0.4 mg SL Q5M PRN #100 tablet, sublingual [Rx] Potassium Chloride [Klor-Con 10] 10 meq PO DAILY #30 tab.er 11/03/17 [Rx] traMADol [Ultram] 50 mg PO Q6H PRN #30 tablet 11/03/17 [Rx] Hydrochlorothiazide 25 mg PO DAILY #30 tab 11/04/17 [Rx] Potassium Chloride 10 meq PO DAILY #30 capsule.er 11/04/17 [Rx] Patient Handouts: Chronic Obstructive Pulmonary Disease Exacerbation, Easy-to- Read, Shortness of Breath, [id number], Chronic Obstructive Pulmonary Disease, [id number], Heart Failure, [id number] Referrals: Clay Guerrero MD [Physician] - (Please call and schedule an appointment with Dr. Guerrero to discuss an outpatient EGD. ) Ki Agrawal MD [Consulting Physician] - 12/12/17 3:40 pm (Urology appointment is in central standard time.) Henrry Elizalde MD [Primary Care Provider] - (Please call and schedule an appointment with your primary care provider for a hospital follow-up appointment within 7-10 days. ) - Discharge Summary/Plan Comment DC Time >30 min.: No Discharge Summary/Plan Comment: New onset CHF---[place] functional class II, stage C---->diuresed > 8 liters off before DC. -In ED with pleurisy with pain over past 3 days, worsening-improved -Hx/o OR, pacemaker - 100% paced rhythm on 12-lead -Family reports high salt intake, occasional pedal edema -BNP 07172 -->8508-->5011 -Echo - 40-45%EF, Moderate concentric LVH, Mild to Mod TV regurg -Lasix given in ED - continue BID to diuresis--stopped 24 hours PT DC for increasing Cr/decreasing GFR. -Fluid and sodium restriction -Stove Fitter consult for CHF diet Cardiomyopathy, not specified; systolic heart failure newly diagnosed. Will not start ULISES/ARB at this time, he is recovering from LEANNE; Baseline renal function, stage 1, currently stage 2-3; His diuretic HCTZ with KCl replacement will not be started until after he has labs as an outpatient. Cr<1.3 or GFR>50, starte HCTZ 25 mg daily and KCl 10 mEq; adjust K replacement for K>4.0 ARF greatly improved without IVF; GFR at DC, > 50, see labs. Elevated troponin, trending downward -Troponin 0.085 in ED-->0.096-->0.092 -CK-MB 1.3 -Likely due to demand ischemia from above -Hx/o OR Elevated CRP, improved -15.9-->15.7-->10.2 -hx/o severe arthritis -Possibly due to chronic inflammatory state - i.e. 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 has had inflamed "wisdom tooth" - dentist is following -Mycoplasma pneumonia--Negative, strep pneumoniae --negative -Levaquin 750mg given in ED - continue; Switch to PO today -Repeat CXR in 24-48 hrs--> nothing acute Anemia -Hgb 12.2-->11.9-->11.4, Hct 37.6-->36.1-->34.5, macrocytic -Hx/o BUSTER and B-12 deficiency -Continue home supplementation -Make ferrous sulfate BID -B12- 953, Folate -23.5, Iron panel: Iron-26, TIBC-154, % sat-17, Transferrin 123 -Has reported poor oral intake over past few days Chronic: HLD HTN - home meds and PRN BB, hydralizine Hx/o OR Pacemaker with 100% paced rhythm Dyspnea on exhertion COPD - duoneb/RT if needed BPH Arthritis Back pain OA Hx/o gastric carcinoma with 95% stomach resection Plan: Other orders as indicated above Routine AM labs Home medications as ordered; new meds as ordered: start HCTZ and KCl after Sunday labs Dr. Guerrero consult - outpatient EGD Suggest cardiology consult, outpatient stress test be considered ++++>ACTIVITY TOLERATED, PATIENT IS NOT RESTRICTED BASED ON HEART FUNCTION Code status: Full Code; PCP: Dr. Elizalde at [facility] here in [place]. Additional CC's: Henrry Elizalde - General Info Date of Service: 10/31/17 - Patient Data Vitals - Most Recent: Last Vital Signs Temp 36.6 C 11/03/17 11:19 Pulse 61 11/03/17 11:19 Resp 17 11/03/17 11:19 BP 129/90 11/03/17 11:19 Pulse Ox 95 11/03/17 11:19 Weight - Most Recent: 53.524 kg I&O - Last 24 hours: Intake & Output 11/02/17 11/03/17 11/03/17 22:59 06:59 14:59 Intake Total 700 400 Output Total 275 1050 Balance 425 -650 Lab Results - Last 24 hrs: Laboratory Results - last 24 hr 11/03/17 11/03/17 Range/Units 05:35 05:35 WBC 7.21 (4.23-9.07) K/mm3 RBC 3.59 L (4.63-6.08) M/mm3 Hgb 11.4 L (13.7-17.5) gm/L Hct 34.8 L (40.1-51.0) % MCV 96.9 H (79.0-92.2) fl MCH 31.8 (25.7-32.2) pg MCHC 32.8 (32.2-35.5) g/dl RDW Std Deviation 42.9 (35.1-43.9) fL Plt Count 276 (163-337) K/mm3 MPV 10.9 (9.4-12.3) fl Neut % (Auto) 68.1 H (34.0-67.9) % Lymph % (Auto) 20.7 L (21.8-53.1) % [place] % (Auto) 8.6 (5.3-12.2) % Eos % (Auto) 1.7 (0.8-7.0) Baso % (Auto) 0.6 (0.1-1.2) % Neut # (Auto) 4.92 (1.78-5.38) K/mm3 Lymph # (Auto) 1.49 (1.32-3.57) K/mm3 [place] # (Auto) 0.62 (0.30-0.82) K/mm3 Eos # (Auto) 0.12 (0.04-0.54) K/mm3 Baso # (Auto) 0.04 (0.01-0.08) K/mm3 Sodium 143 (136-145) mEq/L Potassium 4.4 (3.5-5.1) mEq/L Chloride 108 H (98-107) mEq/L Carbon Dioxide 25 (21-32) mEq/L Anion Gap 14.4 (5-15) BUN 31 H (7-18) mg/dL Creatinine 1.4 H (0.7-1.3) mg/dL Est Cr Clr Drug Dosing 29.57 mL/min Estimated GFR (MDRD) 48 (>60) mL/min BUN/Creatinine Ratio 22.1 H (14-18) Glucose 94 (83-115) mg/dL Calcium 8.5 (8.5-10.1) mg/dL C-Reactive Protein 8.0 H* (<1.0) mg/dL NT-Pro-B Natriuret Pep 3778 H (0-450) pg/mL Med Orders - Current: Current Medications Acetaminophen (Tylenol) 650 mg PO Q4H PRN PRN Reason: Pain (Mild 1-3)/fever Hydrocodone Bitart/Acetaminophen ([place] 325-5 Mg) 1 tab PO Q4H PRN PRN Reason: Pain (moderate 4-6) Last Admin: 11/03/17 05:55 Dose: 1 tab Albuterol/Ipratropium (Duoneb 3.0-0.5 Mg/3 Ml) 3 ml NEB Q4H PRN PRN Reason: Shortness Of Breath/wheezing Ascorbic Acid (Vitamin C) 500 mg PO DAILY [facility] Last Admin: 11/03/17 08:39 Dose: 500 mg Aspirin (Halfprin) 81 mg PO DAILY [facility] Last Admin: 11/03/17 08:39 Dose: 81 mg Bisacodyl (Dulcolax) 5 mg PO DAILY PRN PRN Reason: Constipation Calcium Carbonate/Glycine (Calcium Carbonate) 600 mg PO Q2D [facility] Last Admin: 11/02/17 10:49 Dose: 600 mg Cyanocobalamin (Vitamin B12) 500 mcg PO DAILY [facility] Last Admin: 11/03/17 08:37 Dose: 500 mcg Docusate Sodium (Colace) 100 mg PO BID PRN PRN Reason: Constipation Dronabinol (Marinol) 2.5 mg PO BIDAC [facility] Last Admin: 11/03/17 05:57 Dose: 2.5 mg Enoxaparin Sodium (Lovenox) 30 mg SUBCUT DAILY [facility] Last Admin: 11/03/17 08:37 Dose: 30 mg Famotidine (Pepcid) 20 mg PO DAILY [facility] Last Admin: 11/03/17 08:40 Dose: 20 mg Ferrous Sulfate (Ferrous Sulfate) 325 mg PO BIDMEALS [facility] Last Admin: 11/03/17 06:02 Dose: 325 mg Finasteride (Proscar) 5 mg PO DAILY [facility] Last Admin: 11/03/17 08:39 Dose: 5 mg Hydralazine HCl (Apresoline) 10 mg IVPUSH Q6H PRN PRN Reason: Hypertension Levofloxacin (Levaquin) 250 mg PO Q24H [facility] Last Admin: 11/03/17 11:14 Dose: 250 mg Metoprolol Succinate (Toprol Xl) 12.5 mg PO DAILY [facility] Last Admin: 11/03/17 08:46 Dose: 12.5 mg Metoprolol Tartrate (Lopressor) 5 mg IVPUSH Q4H PRN PRN Reason: Tachycardia Nitroglycerin (Nitrostat) 0.4 mg SL Q5M PRN PRN Reason: Chest Pain Ondansetron HCl (Zofran Odt) 4 mg PO Q6H PRN PRN Reason: nausea, able to take PO Ondansetron HCl (Zofran) 4 mg IV Q6H PRN PRN Reason: Nausea/Vomiting Polyethylene Glycol (Miralax) 17 gm PO DAILY PRN PRN Reason: Constipation Potassium Chloride (Potassium Chloride) 40 meq PO BID [facility] Last Admin: 11/03/17 08:37 Dose: 40 meq Senna/Docusate Sodium (Senna Plus) 1 tab PO BID PRN PRN Reason: Constipation Sertraline HCl (Zoloft) 50 mg PO DAILY [facility] Last Admin: 11/03/17 08:40 Dose: 50 mg Simvastatin (Zocor) 10 mg PO BEDTIME [facility] Last Admin: 11/02/17 21:58 Dose: 10 mg Tamsulosin HCl (Flomax) 0.4 mg PO DAILY [facility] Last Admin: 11/03/17 08:38 Dose: 0.4 mg Tramadol HCl (Ultram) 50 mg PO Q6H PRN PRN Reason: Pain (moderate 4-6) Last Admin: 11/03/17 11:14 Dose: 50 mg Discontinued Medications Acetaminophen (Tylenol) 650 mg PO NOW ONE Stop: 10/31/17 15:34 Last Admin: 10/31/17 15:44 Dose: 650 mg Cyanocobalamin (Vitamin B12) 500 mcg PO DAILY [facility] Last Admin: 11/02/17 10:20 Dose: 500 mcg Diatrizoate Meglum/Diatrizoate Sod (Gastrografin 37%) 90 ml PO ONETIME ONE Stop: 10/31/17 19:30 Last Admin: 10/31/17 19:53 Dose: 90 ml Enoxaparin Sodium (Lovenox) 40 mg SUBCUT DAILY [facility] Enoxaparin Sodium (Lovenox) 40 mg SUBCUT DAILY [facility] Last Admin: 11/02/17 10:23 Dose: 40 mg Famotidine (Pepcid) 20 mg PO BID [facility] Last Admin: 10/31/17 23:29 Dose: 20 mg Ferrous Sulfate (Ferrous Sulfate) 325 mg PO WITHBREAKFAST [facility] Last Admin: 11/01/17 07:36 Dose: 325 mg Furosemide (Lasix) 40 mg IVPUSH NOW ONE Stop: 10/31/17 17:04 Last Admin: 10/31/17 17:11 Dose: 40 mg Furosemide (Lasix) 40 mg IVPUSH BID [facility] Last Admin: 11/01/17 12:40 Dose: Not Given Furosemide (Lasix) 20 mg IVPUSH BID [facility] Last Admin: 11/03/17 08:40 Dose: 20 mg Sodium Chloride (Normal Saline) 1,000 mls @ 125 mls/hr IV ASDIRECTED [facility] Stop: 10/31/17 16:40 Last Infusion: 10/31/17 16:31 Dose: 0 mls/hr Levofloxacin/Dextrose 750 mg/ (Premix) 150 mls @ 100 mls/hr IV ONETIME ONE Stop: 10/31/17 18:45 Last Admin: 10/31/17 17:23 Dose: 100 mls/hr Levofloxacin/Dextrose 750 mg/ (Premix) 150 mls @ 100 mls/hr IV Q48H [facility] Iopamidol (Isovue-300 (61%)) 100 ml IVPUSH ONETIME ONE Stop: 10/31/17 19:30 Last Admin: 10/31/17 19:53 Dose: 100 ml Metoprolol Succinate (Toprol Xl) 25 mg PO DAILY [facility] Last Admin: 11/01/17 10:41 Dose: 25 mg Morphine Sulfate (Morphine) 0.5 mg IVPUSH Q2H PRN PRN Reason: Pain (severe 7-10) Stop: 11/01/17 22:49 Last Admin: 10/31/17 23:32 Dose: 0.5 mg Non-Formulary Medication (Ubidecarenone) 200 mg PO DAILY [facility] Non-Formulary Medication (Rabeprazole [Aciphex]) 20 mg PO DAILY [facility] Last Admin: 11/02/17 15:43 Dose: Not Given Sodium Chloride (Saline Flush) 10 ml FLUSH ONETIME ONE Stop: 10/31/17 19:30 Last Admin: 10/31/17 19:53 Dose: 10 ml *Q Meaningful Use (DIS) - VTE *Q VTE Criteria *Q: - Stroke *Q Stroke Criteria *Q: - AMI *Q AMI Criteria *Q:
--- NOTE | 2017-11-03 15:09 | PCM.PN ---
- General Info Date of Service: 11/03/17 Functional Status: Reports: Pain Controlled, Tolerating Diet, Ambulating - Review of Systems General: Reports: No Symptoms HEENT: Reports: No Symptoms Pulmonary: Reports: No Symptoms Cardiovascular: Reports: No Symptoms Gastrointestinal: Reports: No Symptoms Genitourinary: Reports: No Symptoms Musculoskeletal: Reports: No Symptoms Skin: Reports: No Symptoms Neurological: Reports: No Symptoms Psychiatric: Reports: No Symptoms - Patient Data Vitals - Most Recent: Last Vital Signs Temp 36.6 C 11/03/17 11:19 Pulse 61 11/03/17 11:19 Resp 17 11/03/17 11:19 BP 129/90 11/03/17 11:19 Pulse Ox 95 11/03/17 11:19 Weight - Most Recent: 53.524 kg I&O - Last 24 Hours: Intake & Output 11/03/17 11/03/17 11/03/17 06:59 14:59 22:59 Intake Total 400 Output Total 1050 Balance -650 Lab Results Last 24 Hours: Laboratory Results - last 24 hr 11/03/17 11/03/17 Range/Units 05:35 05:35 WBC 7.21 (4.23-9.07) K/mm3 RBC 3.59 L (4.63-6.08) M/mm3 Hgb 11.4 L (13.7-17.5) gm/L Hct 34.8 L (40.1-51.0) % MCV 96.9 H (79.0-92.2) fl MCH 31.8 (25.7-32.2) pg MCHC 32.8 (32.2-35.5) g/dl RDW Std Deviation 42.9 (35.1-43.9) fL Plt Count 276 (163-337) K/mm3 MPV 10.9 (9.4-12.3) fl Neut % (Auto) 68.1 H (34.0-67.9) % Lymph % (Auto) 20.7 L (21.8-53.1) % Person % (Auto) 8.6 (5.3-12.2) % Eos % (Auto) 1.7 (0.8-7.0) Baso % (Auto) 0.6 (0.1-1.2) % Neut # (Auto) 4.92 (1.78-5.38) K/mm3 Lymph # (Auto) 1.49 (1.32-3.57) K/mm3 Person # (Auto) 0.62 (0.30-0.82) K/mm3 Eos # (Auto) 0.12 (0.04-0.54) K/mm3 Baso # (Auto) 0.04 (0.01-0.08) K/mm3 Sodium 143 (136-145) mEq/L Potassium 4.4 (3.5-5.1) mEq/L Chloride 108 H (98-107) mEq/L Carbon Dioxide 25 (21-32) mEq/L Anion Gap 14.4 (5-15) BUN 31 H (7-18) mg/dL Creatinine 1.4 H (0.7-1.3) mg/dL Est Cr Clr Drug Dosing 29.57 mL/min Estimated GFR (MDRD) 48 (>60) mL/min BUN/Creatinine Ratio 22.1 H (14-18) Glucose 94 (83-115) mg/dL Calcium 8.5 (8.5-10.1) mg/dL C-Reactive Protein 8.0 H* (<1.0) mg/dL NT-Pro-B Natriuret Pep 3778 H (0-450) pg/mL Med Orders - Current: Current Medications Acetaminophen (Tylenol) 650 mg PO Q4H PRN PRN Reason: Pain (Mild 1-3)/fever Hydrocodone Bitart/Acetaminophen ([place] 325-5 Mg) 1 tab PO Q4H PRN PRN Reason: Pain (moderate 4-6) Last Admin: 11/03/17 05:55 Dose: 1 tab Albuterol/Ipratropium (Duoneb 3.0-0.5 Mg/3 Ml) 3 ml NEB Q4H PRN PRN Reason: Shortness Of Breath/wheezing Ascorbic Acid (Vitamin C) 500 mg PO DAILY [facility] Last Admin: 11/03/17 08:39 Dose: 500 mg Aspirin (Halfprin) 81 mg PO DAILY [facility] Last Admin: 11/03/17 08:39 Dose: 81 mg Bisacodyl (Dulcolax) 5 mg PO DAILY PRN PRN Reason: Constipation Calcium Carbonate/Glycine (Calcium Carbonate) 600 mg PO Q2D [facility] Last Admin: 11/02/17 10:49 Dose: 600 mg Cyanocobalamin (Vitamin B12) 500 mcg PO DAILY [facility] Last Admin: 11/03/17 08:37 Dose: 500 mcg Docusate Sodium (Colace) 100 mg PO BID PRN PRN Reason: Constipation Dronabinol (Marinol) 2.5 mg PO BIDAC [facility] Last Admin: 11/03/17 05:57 Dose: 2.5 mg Enoxaparin Sodium (Lovenox) 30 mg SUBCUT DAILY [facility] Last Admin: 11/03/17 08:37 Dose: 30 mg Famotidine (Pepcid) 20 mg PO DAILY [facility] Last Admin: 11/03/17 08:40 Dose: 20 mg Ferrous Sulfate (Ferrous Sulfate) 325 mg PO BIDMEALS [facility] Last Admin: 11/03/17 06:02 Dose: 325 mg Finasteride (Proscar) 5 mg PO DAILY [facility] Last Admin: 11/03/17 08:39 Dose: 5 mg Hydralazine HCl (Apresoline) 10 mg IVPUSH Q6H PRN PRN Reason: Hypertension Levofloxacin (Levaquin) 250 mg PO Q24H [facility] Last Admin: 11/03/17 11:14 Dose: 250 mg Metoprolol Succinate (Toprol Xl) 12.5 mg PO DAILY [facility] Last Admin: 11/03/17 08:46 Dose: 12.5 mg Metoprolol Tartrate (Lopressor) 5 mg IVPUSH Q4H PRN PRN Reason: Tachycardia Nitroglycerin (Nitrostat) 0.4 mg SL Q5M PRN PRN Reason: Chest Pain Ondansetron HCl (Zofran Odt) 4 mg PO Q6H PRN PRN Reason: nausea, able to take PO Ondansetron HCl (Zofran) 4 mg IV Q6H PRN PRN Reason: Nausea/Vomiting Polyethylene Glycol (Miralax) 17 gm PO DAILY PRN PRN Reason: Constipation Potassium Chloride (Potassium Chloride) 40 meq PO BID [facility] Last Admin: 11/03/17 08:37 Dose: 40 meq Senna/Docusate Sodium (Senna Plus) 1 tab PO BID PRN PRN Reason: Constipation Sertraline HCl (Zoloft) 50 mg PO DAILY [facility] Last Admin: 11/03/17 08:40 Dose: 50 mg Simvastatin (Zocor) 10 mg PO BEDTIME [facility] Last Admin: 11/02/17 21:58 Dose: 10 mg Tamsulosin HCl (Flomax) 0.4 mg PO DAILY [facility] Last Admin: 11/03/17 08:38 Dose: 0.4 mg Tramadol HCl (Ultram) 50 mg PO Q6H PRN PRN Reason: Pain (moderate 4-6) Last Admin: 11/03/17 11:14 Dose: 50 mg Discontinued Medications Acetaminophen (Tylenol) 650 mg PO NOW ONE Stop: 10/31/17 15:34 Last Admin: 10/31/17 15:44 Dose: 650 mg Cyanocobalamin (Vitamin B12) 500 mcg PO DAILY [facility] Last Admin: 11/02/17 10:20 Dose: 500 mcg Diatrizoate Meglum/Diatrizoate Sod (Gastrografin 37%) 90 ml PO ONETIME ONE Stop: 10/31/17 19:30 Last Admin: 10/31/17 19:53 Dose: 90 ml Enoxaparin Sodium (Lovenox) 40 mg SUBCUT DAILY [facility] Enoxaparin Sodium (Lovenox) 40 mg SUBCUT DAILY [facility] Last Admin: 11/02/17 10:23 Dose: 40 mg Famotidine (Pepcid) 20 mg PO BID [facility] Last Admin: 10/31/17 23:29 Dose: 20 mg Ferrous Sulfate (Ferrous Sulfate) 325 mg PO WITHBREAKFAST [facility] Last Admin: 11/01/17 07:36 Dose: 325 mg Furosemide (Lasix) 40 mg IVPUSH NOW ONE Stop: 10/31/17 17:04 Last Admin: 10/31/17 17:11 Dose: 40 mg Furosemide (Lasix) 40 mg IVPUSH BID [facility] Last Admin: 11/01/17 12:40 Dose: Not Given Furosemide (Lasix) 20 mg IVPUSH BID [facility] Last Admin: 11/03/17 08:40 Dose: 20 mg Sodium Chloride (Normal Saline) 1,000 mls @ 125 mls/hr IV ASDIRECTED [facility] Stop: 10/31/17 16:40 Last Infusion: 10/31/17 16:31 Dose: 0 mls/hr Levofloxacin/Dextrose 750 mg/ (Premix) 150 mls @ 100 mls/hr IV ONETIME ONE Stop: 10/31/17 18:45 Last Admin: 10/31/17 17:23 Dose: 100 mls/hr Levofloxacin/Dextrose 750 mg/ (Premix) 150 mls @ 100 mls/hr IV Q48H [facility] Iopamidol (Isovue-300 (61%)) 100 ml IVPUSH ONETIME ONE Stop: 10/31/17 19:30 Last Admin: 10/31/17 19:53 Dose: 100 ml Metoprolol Succinate (Toprol Xl) 25 mg PO DAILY [facility] Last Admin: 11/01/17 10:41 Dose: 25 mg Morphine Sulfate (Morphine) 0.5 mg IVPUSH Q2H PRN PRN Reason: Pain (severe 7-10) Stop: 11/01/17 22:49 Last Admin: 10/31/17 23:32 Dose: 0.5 mg Non-Formulary Medication (Ubidecarenone) 200 mg PO DAILY [facility] Non-Formulary Medication (Rabeprazole [Aciphex]) 20 mg PO DAILY [facility] Last Admin: 11/02/17 15:43 Dose: Not Given Sodium Chloride (Saline Flush) 10 ml FLUSH ONETIME ONE Stop: 10/31/17 19:30 Last Admin: 10/31/17 19:53 Dose: 10 ml - Exam Quality Assessment: DVT Prophylaxis General: Alert, Oriented, Cooperative, No Acute Distress HEENT: Pupils Equal, Pupils Reactive, EOMI Neck: Trachea Midline, No JVD Lungs: Normal Respiratory Effort Cardiovascular: Regular Rate, Regular Rhythm (paced) GI/Abdominal Exam: Normal Bowel Sounds, Soft, Non-Tender, No Organomegaly, No Distention (Male) Exam: Deferred Back Exam: Normal Inspection Extremities: Normal Inspection Skin: Warm Neurological: No New Focal Deficit Psy/Mental Status: Alert, Normal Affect, Normal Mood - Problem List Review Problem List Initiated/Reviewed/Updated: Yes - My Orders Last 24 Hours: My Active Orders 11/03/17 10:15 traMADol [Ultram] 50 mg PO Q6H PRN 11/03/17 12:04 C DIFFICILE BY PCR W/NAP1 [MOLEC] Routine - Plan Plan:: I/P Acute: New onset CHF -In ED with pleurisy with pain over past 3 days, worsening-improved now -Hx/o IA, pacemaker - 100% paced rhythm on 12-lead -Family reports high salt intake, occasional pedal edema -BNP 16662 -->8508-->5011 -Echo - 40-45%EF, Moderate concentric LVH, Mild to Mod TV regurg -Lasix given in ED - continue BID to diuresis -Fluid and sodium restriction -Shuttleless [employer] consult for CHF diet Elevated troponin, trending downward -Troponin 0.085 in ED-->0.096-->0.092 -CK-MB 1.3 -Likely due to demand ischemia from above -Hx/o IA -Will repeat Elevated CRP, improving -15.9-->15.7-->10.2 -hx/o severe arthritis -Possibly due to chronic inflammatory state - i.e. 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 has had inflamed "wisdom tooth" - dentist is following -Mycoplasma pneumonia--Negative, strep pneumoniae --negative -Levaquin 750mg given in ED - continue; Switch to PO today -Repeat CXR in 24-48 hrs--> nothing acute Anemia -Hgb 12.2-->11.9-->11.4, Hct 37.6-->36.1-->34.5, macrocytic -Hx/o BUSTER and B-12 deficiency -Continue home supplementation -Make ferrous sulfate BID -B12- 953, Folate -23.5, Iron panel: Iron-26, TIBC-154, % sat-17, Transferrin 123 -Has reported poor oral intake over past few days -No hematochezia, hematemesis, melena, or obvious bleeding Pleurisy, improving to resolved -Pain across chest which is worse with deep inspiration -No recent trauma -CXR negative for acute findings -Hx/o severe arthritis and osteoarthritis, COPD -Pain medications as ordered -Monitor Urinary retention -200mL post void -Hx/o BPH, has seen urology in past but has been several years -UA negative -Family reports increased frequency with minimal output -"dribbles" -Home Flomax and finasteride -Monitor -Will likely need urology f/u after discharge Chronic: HLD HTN - home meds and PRN BB, hydralizine Hx/o IA Pacemaker with 100% paced rhythm Dyspnea on exhertion COPD - duoneb/RT if needed BPH Arthritis Back pain OA 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 CM for discharge planning PT/OT DVT/PE prophylaxis: ELLIOT hose and Lovenox Other orders as indicated above Routine AM labs Home medications as ordered Dr. Guerrero consult - outpatient EGD Possible cardiology consult, outpatient stress test Heat pack for back/shoulders Code status: Full Code; PCP: Dr. Elizalde at [facility] here in [place].
[2017-11-03] MEDS: Simvastatin 10 MG Tab PO SCH (22:53)
[2017-11-04] MEDS: Dronabinol 2.5 MG Cap PO SCH (06:03)
[2017-11-04] MEDS: Ferrous Sulfate 325 MG Tab PO SCH (06:03)
[2017-11-04] MEDS: traMADol 50 MG Tab PO PRN (06:59)
[2017-11-04] MEDS: Cyanocobalamin (Vitamin B12) 1,000 MCG Tab PO SCH (08:09)
[2017-11-04] MEDS: Aspirin 81 MG Tab.EC PO SCH (08:09)
[2017-11-04] MEDS: Tamsulosin 0.4 MG Cap.ER PO SCH (08:09)
[2017-11-04] MEDS: Finasteride 5 MG Tab PO SCH (08:09)
[2017-11-04] MEDS: Sertraline 50 MG Tab PO SCH (08:10)
[2017-11-04] MEDS: Ascorbic Acid 500 MG Tab PO SCH (08:10)
[2017-11-04] MEDS: Enoxaparin 30 MG/0.3 ML Syringe SUBCUT SCH (08:10)
[2017-11-04] MEDS: Famotidine 20 MG Tab PO SCH (08:10)
[2017-11-04] MEDS: Metoprolol Succinate 25 MG Tab.ER PO SCH (08:12)
[2017-11-04 08:13] VITALS: BP 94/56
[2017-11-04] MEDS: Calcium Carbonate 600 MG Tab PO SCH (08:50)
[2017-11-04] MEDS: Levofloxacin 250 MG Tab PO SCH (09:50)
[2017-11-06] MEDS ORDERED: Hydrochlorothiazide 25 MG Tab PO SCH (09:00)
[2017-11-06] MEDS ORDERED: Potassium Chloride 10 MEQ Tab.ER PO SCH (09:00)
== END 2017-11-04 10:15 | disposition home or self-care (01) | DRG 292 ==
LOC: JD.ED 14:58 → JD.MS 22:07
PROVIDERS: ADMIT Internal Medicine Cardiovascular Disease; ATTEND Internal Medicine Cardiovascular Disease
DX: I50.20 Unspecified systolic (congestive) heart failure (principal); I50.9 Heart failure, unspecified; J90 Pleural effusion, not elsewhere classified; R50.9 Fever, unspecified; N40.0 Benign prostatic hyperplasia without lower urinary tract symptoms; Z85.028 Personal history of other malignant neoplasm of stomach; E78.00 Pure hypercholesterolemia, unspecified; D72.828 Other elevated white blood cell count; J44.9 Chronic obstructive pulmonary disease, unspecified; M19.90 Unspecified osteoarthritis, unspecified site; K44.9 Diaphragmatic hernia without obstruction or gangrene; R74.8 Abnormal levels of other serum enzymes; R79.82 Elevated C-reactive protein (CRP); D64.9 Anemia, unspecified; R33.9 Retention of urine, unspecified; N40.1 Benign prostatic hyperplasia with lower urinary tract symptoms; E78.5 Hyperlipidemia, unspecified; I11.0 Hypertensive heart disease with heart failure; Z95.0 Presence of cardiac pacemaker; R06.00 Dyspnea, unspecified; G89.29 Other chronic pain; M54.9 Dorsalgia, unspecified; I25.2 Old myocardial infarction; Z88.0 Allergy status to penicillin; Z79.82 Long term (current) use of aspirin; Z79.899 Other long term (current) drug therapy; Z87.891 Personal history of nicotine dependence
CPT/HCPCS: 36415; 51798; 71045; 71260; 74177; 80053; 81001; 82553; 83735; 83880; 84484; 85025; 85610; 85652; 86140; 87040 ×2; 87804 ×2; 87899; 93005; 96361; 96365; 96366; 96375; 99285; A9270; J1940; J1956; J7040; J7050; Q9963; Q9967; 71046; 71046-26; 80048; 82607; 82746; 83540; 84466; 86738; 93306; 97112-GP; 97116-GP; 97161-GP; 97165-GO; 97530-GO; J1650; J2270; Q0167

== ENCOUNTER 2018-01-10 10:33 | Emergency (ER) | payer MEDICARE, OTHER ==
[2018-01-10 10:44] VITALS: BP 120/72
--- NOTE | 2018-01-10 11:46 | EDM.PDOC ---
ED HPI GENERAL MEDICAL PROBLEM - General Chief Complaint: ENT Problem Stated Complaint: NOSEBLEED Time Seen by Provider: 01/10/18 10:56 Source of Information: Reports: Patient History Limitations: Reports: No Limitations, Other (hard of hearing) - History of Present Illness INITIAL COMMENTS - FREE TEXT/NARRATIVE: Patient is a 82-year-old male who presents ED complaining of left-sided nosebleed. Patient states this past 3 days every morning has awoke to a nosebleed. 2 previous times the nosebleed stopped on its own accord. Today had a nosebleed approximately 5:00 this morning that stopped on its own. Again at 8: 30 had another nosebleed that has persisted. Patient is on aspirin. States this past week fell and hit his nose. In addition had incisor tooth extracted on the upper palate this past week. Has some bruising noted to his left cheek. He is on no anticoagulants. At this point it appears bleeding is stopped with tissue within the nares. There is clots present. No blood to the posterior pharynx noted. In addition states the air within his house has been dry. Recently purchased a humidifier as of yesterday. - Related Data Allergies Allergy/AdvReac Type Severity Reaction Status Date / Time Penicillins Allergy Mild UNKNOWN Verified 01/10/18 10:40 Home Meds: Home Meds Aspirin [Halfprin] 81 mg PO DAILY 07/21/15 [History] Finasteride [Proscar] 5 mg PO DAILY 07/21/15 [History] Tamsulosin [Flomax] 0.4 mg PO DAILY 07/21/15 [History] Metoprolol Succinate [Toprol XL] 12.5 mg PO BEDTIME 10/31/17 [History] Pravastatin Sodium [Pravastatin (Pravachol)] 20 mg PO BEDTIME 10/31/17 [History] Sertraline HCl 50 mg PO DAILY 10/31/17 [History] Ubidecarenone [Coq-10] 200 mg PO DAILY 10/31/17 [History] Dronabinol [Marinol] 2.5 mg PO BIDAC 11/01/17 [History] Cyanocobalamin (Vitamin B12) [Vitamin B12] 500 mcg PO DAILY #30 tablet 11/03/17 [Rx] Ferrous Sulfate 325 mg PO WITHBREAKFAST #30 tablet 11/03/17 [Rx] Hydrochlorothiazide 12.5 mg PO DAILY 01/10/18 [History] Past Medical History HEENT History: Reports: Cataract, Impaired Vision Other HEENT History: corrective lenses Cardiovascular History: Reports: High Cholesterol, [place], Pacemaker, SOB on Exertion Respiratory History: Reports: COPD Gastrointestinal History: Reports: GERD Genitourinary History: Reports: BPH, Prostate Disorder Musculoskeletal History: Reports: Arthritis, Back Pain, Chronic, Osteoarthritis Hematologic History: Reports: Anemia, B12 Deficiency Oncologic (Cancer) History: Reports: Other (See Below) Other Oncologic History: stomach cancer - Infectious Disease History Infectious Disease History: Reports: Measles - Past Surgical History HEENT Surgical History: Reports: Cataract Surgery Cardiovascular Surgical History: Reports: Pacer GI Surgical History: Reports: Other (See Below) Other GI Surgeries/Procedures: States 95% of stomach removed Musculoskeletal Surgical History: Reports: Carpal Tunnel, Other (See Below) Other Musculoskeletal Surgeries/Procedures:: rotator cuff repair Social & Family History - Family History Family Medical History: Noncontributory - Tobacco Use Smoking Status *Q: Never Smoker Used Tobacco, but Quit: Yes Month/Year Tobacco Last Used: 1959 Second Hand Smoke Exposure: No - Caffeine Use Caffeine Use: Reports: Coffee, Tea - Recreational Drug Use Recreational Drug Use: No - Living Situation & Occupation Living situation: Reports: (Spouse about 1-1/2 years ago from aggressive ovarian cancer.), Alone Occupation: Retired ED ROS ENT - Review of Systems Review Of Systems: See Below Constitutional: Reports: No Symptoms HEENT: Reports: Other (epistaxis) Respiratory: Reports: No Symptoms Cardiovascular: Reports: No Symptoms Musculoskeletal: Reports: No Symptoms Neurological: Denies: Dizziness, Difficulty Walking Hematologic/Lymphatic: Denies: Anemia, Easy Bleeding, Easy Bruising ED EXAM, ENT - Physical Exam Exam: See Below Exam Limited By: No Limitations General Appearance: Alert, WD/WN, No Apparent Distress Ears: Hearing Loss Nose: Dried Blood, Other (bleeding from the left nare along the septum proximal to the os. ) Mouth/Throat: Normal Inspection, Normal Oropharynx Neck: Normal Inspection, Supple Respiratory/Chest: No Respiratory Distress, Lungs Clear, Normal Breath Sounds, No Accessory Muscle Use Cardiovascular: Normal Peripheral Pulses, Regular Rate, Rhythm Neurological: Alert, Oriented, CN II-XII Intact, Normal Cognition, No Motor/ Sensory Deficits Psychiatric: Normal Affect, Normal Mood Skin: Warm, Dry, Intact, Normal Color Course - Vital Signs Last Recorded V/S: Last Vital Signs Temp 97.1 F 01/10/18 10:40 Pulse 72 01/10/18 10:40 Resp 16 01/10/18 10:40 BP 120/72 01/10/18 10:40 Pulse Ox 100 01/10/18 10:40 - Re-Assessments/Exams Free Text/Narrative Re-Assessment/Exam: On examination patient have bleeding from the left septum proximal to the os. Bleeding controlled with silver nitrate 4. Record of bacitracin applied to the left and right nares. On reexamination approximately 20 minutes later no bleeding present. No blood within the posterior pharynx. Vital signs are stable. Will discharge patient home with instructions as documented. Departure - Departure Time of Disposition: 11:54 Disposition: Home, Self-Care 01 Condition: Good Clinical Impression: Anterior epistaxis - Discharge Information Instructions: Nosebleed, Adult, [id number] Referrals: Henrry Elizalde MD [Primary Care Provider] - Forms: ED Department Discharge Additional Instructions: If bleeding starts again utilize Afrin 1 spray to each naris after blowing her nose expelling all clots. Saturate two cotton balls with Afrin and place within both left and right naris with no clamp applied. Keep clamp in place for 30 minutes prior to removing. If bleeding persists leave clamp in place and apply cool compress to the bridge of the nose. If this does not subside the bleeding please return to the E.D. Do not excessively blow your nose. Do not pick your nose. Prior to bed apply heavy coat of vaseline to the septum of the left/ right nares. Utilize nasal saline spray 1 to 2 sprays each nare as needed throughout the course of the day to keep membranes moist. Utilize a humidifier in your residence to keep humidity up.
== END 2018-01-10 14:00 | disposition home or self-care (01) ==
LOC: JD.ED 10:33
DX: R04.0 Epistaxis (principal); E78.00 Pure hypercholesterolemia, unspecified; I25.2 Old myocardial infarction; Z88.0 Allergy status to penicillin; Z79.82 Long term (current) use of aspirin; Z79.899 Other long term (current) drug therapy; Z87.891 Personal history of nicotine dependence
CPT/HCPCS: 30901; 99282-25; 99283-25

== ENCOUNTER 2018-12-12 11:06 | Observation (INO) | payer MEDICARE, OTHER ==
--- NOTE | 2018-12-12 11:31 | EDM.PDOC ---
ED HPI GENERAL MEDICAL PROBLEM - General Chief Complaint: Gastrointestinal Problem Stated Complaint: SENT [facility] Time Seen by Provider: 12/12/18 11:20 - History of Present Illness INITIAL COMMENTS - FREE TEXT/NARRATIVE: 83-year-old male sent to the emergency room with concerns over dehydration rectal bleeding and a rectal mass. Patient is a 2 day history of no appetite. He gets nauseated if he tries to eat or drink. 2 nights ago he had a profuse laboratory runny stool that was described as explosive he's had a few smaller stool since this time. Discussed significant history of gastric cancer he has last EGD was in March 2018 and was reportedly normal. Patient was seen in the clinic yesterday had a CT of his abdomen done with oral contrast that showed a thickened trabecular appearance of the bladder perhaps related to infection or obstruction however he really hasn't been having many symptoms they also noted asymmetric thickening of the rectum on the left side. The patient is having a 13 pound weight loss over the last couple of months. Patient has advanced congestive heart failure as well as ischemic cardiac disease. He has not had any chest pain breathing difficulties worsening failure symptoms or other complaints. - Related Data Allergies Allergy/AdvReac Type Severity Reaction Status Date / Time Penicillins Allergy Mild UNKNOWN Verified 12/12/18 11:26 Home Meds: Home Meds Aspirin [Halfprin] 81 mg PO DAILY 07/21/15 [History] Finasteride [Proscar] 5 mg PO DAILY 07/21/15 [History] Tamsulosin [Flomax] 0.4 mg PO DAILY 07/21/15 [History] Metoprolol Succinate [Toprol XL] 12.5 mg PO BEDTIME 10/31/17 [History] Sertraline HCl 50 mg PO DAILY 10/31/17 [History] Ubidecarenone [Coq-10] 200 mg PO DAILY 10/31/17 [History] Dronabinol [Marinol] 2.5 mg PO BIDAC 11/01/17 [History] Cyanocobalamin (Vitamin B12) [Vitamin B12] 500 mcg PO DAILY #30 tablet 11/03/17 [Rx] Ferrous Sulfate 325 mg PO WITHBREAKFAST #30 tablet 11/03/17 [Rx] hydroCHLOROthiazide [Hydrochlorothiazide] 12.5 mg PO DAILY 01/10/18 [History] Calcium Carbonate [Calcium] 500 mg pe PO DAILY 12/12/18 [History] RABEprazole Sodium [Aciphex] 20 mg PO DAILY 12/12/18 [History] Past Medical History HEENT History: Reports: Cataract, Impaired Vision Other HEENT History: corrective lenses Cardiovascular History: Reports: High Cholesterol, [place], Pacemaker, SOB on Exertion Respiratory History: Reports: COPD Gastrointestinal History: Reports: GERD Genitourinary History: Reports: BPH, Prostate Disorder Musculoskeletal History: Reports: Arthritis, Back Pain, Chronic, Osteoarthritis Hematologic History: Reports: Anemia, B12 Deficiency Oncologic (Cancer) History: Reports: Other (See Below) Other Oncologic History: stomach cancer - Infectious Disease History Infectious Disease History: Reports: Measles - Past Surgical History HEENT Surgical History: Reports: Cataract Surgery Cardiovascular Surgical History: Reports: Pacer GI Surgical History: Reports: Other (See Below) Other GI Surgeries/Procedures: States 95% of stomach removed Musculoskeletal Surgical History: Reports: Carpal Tunnel, Other (See Below) Other Musculoskeletal Surgeries/Procedures:: rotator cuff repair Social & Family History - Family History Family Medical History: Noncontributory - Caffeine Use Caffeine Use: Reports: Coffee, Tea - Living Situation & Occupation Living situation: Reports: (Spouse about 1-1/2 years ago from aggressive ovarian cancer.), Alone Occupation: Retired ED ROS GENERAL - Review of Systems Review Of Systems: See Below Constitutional: Reports: Chills. Denies: Fever HEENT: Reports: No Symptoms Respiratory: Reports: No Symptoms Cardiovascular: Reports: No Symptoms Endocrine: Reports: No Symptoms GI/Abdominal: Reports: Abdominal Pain, Black Stool, Diarrhea, Decreased Appetite , Nausea. Denies: Vomiting : Reports: No Symptoms Musculoskeletal: Reports: Other (He has advanced arthritis to much osteoporosis to allow for hip replacement) Skin: Reports: No Symptoms Neurological: Reports: No Symptoms Psychiatric: Reports: No Symptoms Hematologic/Lymphatic: Reports: No Symptoms Immunologic: Reports: No Symptoms ED EXAM, GI/ABD - Physical Exam Exam: See Below Exam Limited By: No Limitations General Appearance: Alert, No Apparent Distress, Other (Alert oriented) Eyes: Bilateral: Normal Appearance Ears: Normal External Exam, Normal Canal, Normal TMs, Other (He wears hearing aids mild cerumen accumulation) Nose: Normal Inspection Throat/Mouth: Normal Inspection, Normal Lips, Normal Oropharynx, No Airway Compromise, Other (Dentures semi-dry mucosa) Head: Atraumatic, Normocephalic Neck: Normal Inspection, Supple, Non-Tender, Full Range of Motion. No: Lymphadenopathy (L), Lymphadenopathy (R) Respiratory/Chest: No Respiratory Distress, Lungs Clear, Normal Breath Sounds Cardiovascular: Normal Peripheral Pulses, Regular Rate, Rhythm, No Edema, Other (Appears to be in a ventricular paced rhythm on the monitor with occasional PVCs ) GI/Abdominal Exam: Normal Bowel Sounds, Soft Rectal (Males) Exam: Heme + Stool, Other (He has a rectal mass most consistent with an irregular prostate) Back Exam: Other (He's got some vague discomfort in the right lateral back worse with palpation). No: CVA Tenderness (L), CVA Tenderness (R) Extremities: Normal Inspection, No Pedal Edema Neurological: Alert, Oriented, Normal Cognition Skin Exam: Warm, Dry, Intact Lymphatic: No Adenopathy EKG INTERPRETATION EKG Date: 12/12/18 Rhythm: Other (Ventricular paced rhythm with PVCs) Rate (Beats/Min): 76 QRS: LBBB ST-T: Other (No suggestion of ischemia) QT: Prolonged Comparison: No Change Course - Vital Signs Last Recorded V/S: Last Vital Signs Temp 36.7 C 12/12/18 11:18 Pulse 72 12/12/18 11:18 Resp 13 12/12/18 11:18 BP 109/75 12/12/18 11:18 Pulse Ox 98 12/12/18 11:18 - Orders/Labs/Meds Orders: Active Orders 24 hr Category Date Time Status EKG Documentation Completion [RC] STAT Care 12/12/18 11:50 Active Lactated Ringers [Ringers, Lactated] 1,000 ml Med 12/12/18 12:00 Active IV ASDIRECTED Medication Orders Lactated Ringer's (Ringers, Lactated) 1,000 mls @ 100 mls/hr IV ASDIRECTED BLAKE Last Admin: 12/12/18 12:01 Dose: 100 mls/hr Labs: Laboratory Tests 12/12/18 12/12/18 12/12/18 Range/Units 11:45 11:45 11:45 WBC 9.56 H (4.23-9.07) K/mm3 RBC 3.55 L (4.63-6.08) M/mm3 Hgb 11.3 L (13.7-17.5) gm/L Hct 34.2 L (40.1-51.0) % MCV 96.3 H (79.0-92.2) fl MCH 31.8 (25.7-32.2) pg MCHC 33.0 (32.2-35.5) g/dl RDW Std Deviation 42.8 (35.1-43.9) fL Plt Count 74 L (163-337) K/mm3 MPV 11.3 (9.4-12.3) fl Neutrophils % (Manual) 90 H (40-60) % Band Neutrophils % 0 (0-10) % Lymphocytes % (Manual) 8 L (20-40) % Atypical Lymphs % 0 % Monocytes % (Manual) 2 (2-10) % Eosinophils % (Manual) 0 L (0.8-7.0) % Basophils % (Manual) 0 L (0.2-1.2) Platelet Estimate Decreased Plt Morphology Comment See note RBC Morph Comment Normal Sodium 133 L (136-145) mEq/L Potassium 4.3 (3.5-5.1) mEq/L Chloride 100 (98-107) mEq/L Carbon Dioxide 19 L (21-32) mEq/L Anion Gap 18.3 H (5-15) BUN 38 H (7-18) mg/dL Creatinine 1.5 H (0.7-1.3) mg/dL Est Cr Clr Drug Dosing 27.52 mL/min Estimated GFR (MDRD) 45 (>60) mL/min BUN/Creatinine Ratio 25.3 H (14-18) Glucose 93 (83-115) mg/dL Calcium 8.9 (8.5-10.1) mg/dL Total Bilirubin 0.5 (0.2-1.0) mg/dL AST 39 H (15-37) U/L ALT 16 (16-63) U/L Alkaline Phosphatase 123 H (46-116) U/L Troponin I 0.145 H* (0.00-0.056) ng/mL Total Protein 6.1 L (6.4-8.2) g/dl Albumin 2.7 L (3.4-5.0) g/dl Globulin 3.4 gm/dL Albumin/Globulin Ratio 0.8 L (1-2) Urine Color (Yellow) Urine Appearance (Clear) Urine pH (5.0-8.0) Ur Specific [place] (1.005-1.030) Urine Protein (Negative) Urine Glucose (UA) (Negative) Urine Ketones (Negative) Urine Occult Blood (Negative) Urine Nitrite (Negative) Urine Bilirubin (Negative) Urine Urobilinogen (0.2-1.0) Ur Leukocyte Esterase (Negative) Urine RBC (0-5) /hpf Urine WBC (0-5) /hpf Ur Epithelial Cells (0-5) /hpf Urine Bacteria (FEW) /hpf Hyaline Casts (0-5) /lpf Urine Mucus (FEW) /hpf 12/12/18 Range/Units 12:45 WBC (4.23-9.07) K/mm3 RBC (4.63-6.08) M/mm3 Hgb (13.7-17.5) gm/L Hct (40.1-51.0) % MCV (79.0-92.2) fl MCH (25.7-32.2) pg MCHC (32.2-35.5) g/dl RDW Std Deviation (35.1-43.9) fL Plt Count (163-337) K/mm3 MPV (9.4-12.3) fl Neutrophils % (Manual) (40-60) % Band Neutrophils % (0-10) % Lymphocytes % (Manual) (20-40) % Atypical Lymphs % % Monocytes % (Manual) (2-10) % Eosinophils % (Manual) (0.8-7.0) % Basophils % (Manual) (0.2-1.2) Platelet Estimate Plt Morphology Comment RBC Morph Comment Sodium (136-145) mEq/L Potassium (3.5-5.1) mEq/L Chloride (98-107) mEq/L Carbon Dioxide (21-32) mEq/L Anion Gap (5-15) BUN (7-18) mg/dL Creatinine (0.7-1.3) mg/dL Est Cr Clr Drug Dosing mL/min Estimated GFR (MDRD) (>60) mL/min BUN/Creatinine Ratio (14-18) Glucose (83-115) mg/dL Calcium (8.5-10.1) mg/dL Total Bilirubin (0.2-1.0) mg/dL AST (15-37) U/L ALT (16-63) U/L Alkaline Phosphatase (46-116) U/L Troponin I (0.00-0.056) ng/mL Total Protein (6.4-8.2) g/dl Albumin (3.4-5.0) g/dl Globulin gm/dL Albumin/Globulin Ratio (1-2) Urine Color Yellow (Yellow) Urine Appearance Clear (Clear) Urine pH 5.5 (5.0-8.0) Ur Specific [place] 1.020 (1.005-1.030) Urine Protein 1+ H (Negative) Urine Glucose (UA) Negative (Negative) Urine Ketones Trace H (Negative) Urine Occult Blood Negative (Negative) Urine Nitrite Negative (Negative) Urine Bilirubin 1+ H (Negative) Urine Urobilinogen 0.2 (0.2-1.0) Ur Leukocyte Esterase Negative (Negative) Urine RBC 0-5 (0-5) /hpf Urine WBC 0-5 (0-5) /hpf Ur Epithelial Cells Not seen (0-5) /hpf Urine Bacteria Few (FEW) /hpf Hyaline Casts 5-10 H (0-5) /lpf Urine Mucus Few (FEW) /hpf Meds: Medications Generic Name Dose Route Start Last Admin Trade Name Freq PRN Reason Stop Dose Admin Lactated Ringer's 1,000 mls @ 100 mls/hr 12/12/18 12:00 12/12/18 12:01 Ringers, Lactated IV 100 mls/hr ASDIRECTED BLAKE Administration Discontinued Medications Generic Name Dose Route Start Last Admin Trade Name Freq PRN Reason Stop Dose Admin Pantoprazole Sodium 80 mg 12/12/18 11:52 12/12/18 11:58 Protonix Iv IVPUSH 12/12/18 11:53 40 mg BOLUS ONE Administration - Re-Assessments/Exams Free Text/Narrative Re-Assessment/Exam: 12/12/18 13:40 Patient seems to be doing a little better after getting gentle IV fluids. His labs reviewed troponin did come back at 0.145 he's had a mildly elevated troponin in the past. Patient has not had any chest pain or anginal equivalence she's had some intermittent abdominal discomfort as long with what appears to be an upper GI bleed. His hemoglobin and hematocrit is down however it is stable from prior evaluations. I discussed the patient's CODE STATUS and treatment plan in detail in several occasions with the patient and his granddaughter and the plan is DNR no aggressive management the patient declines the opportunity to go to [facility] for further evaluation. The patient would like to only be admitted here and only if absolutely necessary. Case discussed with Dr. Bruce who will further evaluate and manage the patient here at this hospital with the patient and family fully understanding the limitations that we have. The patient indeed has a rectal mass I believe this is probably his prostate nonetheless with instability is insured with this gentleman he is getting the a EGD and colon evaluation. Departure - Departure Time of Disposition: 13:43 Disposition: Refer to Observation Clinical Impression: Upper GI bleed, Anemia, Elevated troponin, Mass in rectum - Discharge Information Referrals: Henrry Elizalde MD [Primary Care Provider] - Forms: ED Department Discharge - My Orders Last 24 Hours: My Active Orders 12/12/18 11:50 EKG Documentation Completion [RC] STAT 12/12/18 12:00 Lactated Ringers [Ringers, Lactated] 1,000 ml IV ASDIRECTED - Assessment/Plan Last 24 Hours: My Active Orders 12/12/18 11:50 EKG Documentation Completion [RC] STAT 12/12/18 12:00 Lactated Ringers [Ringers, Lactated] 1,000 ml IV ASDIRECTED
[2018-12-12] MEDS ORDERED: Pantoprazole 40 MG Vial IVPUSH ONE (11:52)
[2018-12-12] MEDS ORDERED: Lactated Ringers 1,000 ML IV SCH (12:00)
--- NOTE | 2018-12-12 15:17 | PCM.HP ---
H&P History of Present Illness - General Date of Service: 12/12/18 Admit Problem/Dx: Admission Diagnosis/Problem Admission Diagnosis/Problem Elevated troponin level - History of Present Illness Initial Comments - Free Text/Narative: 83-year-old male is admitted in observation status through the ER for lower abdominal pain and elevated cardiac enzymes. Patient has a history of stomach cancer in 2013 with a 95% gastrectomy. He was seen in fall of this year and told he was cancer free. Over the last 2 days patient has had anorexia with worsening right lower quadrant pain. He was seen at his primary care provider's clinic yesterday and a CT scan was ordered. CT found small bilateral pleural effusions, slightly greater on the right. 2 low density lesions in the liver, most likely representing cysts. Thickened trabeculated appearance of the bladder wall may be related to infection or outlet obstruction. Asymmetric thickening of the rectum on the left. Patient was seen again today by his primary care physician and a rectal exam was performed finding an irregular, firm feeling mass. Patient has reported 10-20 pound weight loss over the last 3 months. He does state that he had dental extractions done approximately 3 months ago and has not had his full set of dentures fitted. He and his daughter do think that this is partially the cause of his weight loss. Patient has a history of anemia and is currently on iron supplements. In the emergency room he did have a rectal exam and stool was black and positive Hemoccult study. Patient states that 2 days ago was his last bowel movement and it was black. He had a cramping pain just after eating yogurt and then a black stool. According to the patient and daughter he did have an anoscopy done in the clinic. Blood work done in the clinic this morning showed a white count of 11.2, hemoglobin of 12.2, and platelets of 87,000. Metabolic panel demonstrated a BUN of 42 and a creatinine of 1.57. In the emergency room patient was given fluids and his abdominal pain stopped at that time. He also states that when he took Tylenol this morning it helped his pain. He has been taking more Tylenol over the last few days because of his abdominal pain. His abdominal pain is achy to sharp. It is suprapubic to the right lower quadrant. Tylenol, a massage chair, and food do seem to make it better. Nothing seems to make it worse. Patient denies any chest pain, epigastric pain, shortness of breath, PND, or orthopnea. He does not want to be resuscitated and does not want to have surgery or endoscopy done at this time. Patient also has a history of CHF, COPD, and BPH. He is followed by urology for his BPH. Patient has had a right inguinal surgery repair. - Related Data Allergies/Adverse Reactions: Allergies Allergy/AdvReac Type Severity Reaction Status Date / Time Penicillins Allergy Mild UNKNOWN Verified 12/12/18 11:26 Home Medications: Home Meds Aspirin [Halfprin] 81 mg PO DAILY 07/21/15 [History] Finasteride [Proscar] 5 mg PO DAILY 07/21/15 [History] Tamsulosin [Flomax] 0.4 mg PO DAILY 07/21/15 [History] Metoprolol Succinate [Toprol XL] 12.5 mg PO BEDTIME 10/31/17 [History] Sertraline HCl 50 mg PO DAILY 10/31/17 [History] Ubidecarenone [Coq-10] 200 mg PO DAILY 10/31/17 [History] Dronabinol [Marinol] 2.5 mg PO BIDAC 11/01/17 [History] Cyanocobalamin (Vitamin B12) [Vitamin B12] 500 mcg PO DAILY #30 tablet 11/03/17 [Rx] Ferrous Sulfate 325 mg PO WITHBREAKFAST #30 tablet 11/03/17 [Rx] hydroCHLOROthiazide [Hydrochlorothiazide] 12.5 mg PO DAILY 01/10/18 [History] Calcium Carbonate [Calcium] 500 mg pe PO DAILY 12/12/18 [History] RABEprazole Sodium [Aciphex] 20 mg PO DAILY 12/12/18 [History] Past Medical History HEENT History: Reports: Cataract, Impaired Vision Other HEENT History: corrective lenses Cardiovascular History: Reports: High Cholesterol, [place], Pacemaker, SOB on Exertion Respiratory History: Reports: COPD Gastrointestinal History: Reports: GERD Other Gastrointestinal History: Gastric cancer with partial, 95%, gastrectomy in 2013 Genitourinary History: Reports: BPH, Prostate Disorder Musculoskeletal History: Reports: Arthritis, Back Pain, Chronic, Osteoarthritis Hematologic History: Reports: Anemia, B12 Deficiency Oncologic (Cancer) History: Reports: Other (See Below) Other Oncologic History: stomach cancer - Infectious Disease History Infectious Disease History: Reports: Measles - Past Surgical History HEENT Surgical History: Reports: Cataract Surgery Cardiovascular Surgical History: Reports: Pacer GI Surgical History: Reports: Other (See Below) Other GI Surgeries/Procedures: States 95% of stomach removed Musculoskeletal Surgical History: Reports: Carpal Tunnel, Other (See Below) Other Musculoskeletal Surgeries/Procedures:: rotator cuff repair Social & Family History - Family History Family Medical History: Noncontributory - Tobacco Use Smoking Status *Q: Never Smoker - Caffeine Use Caffeine Use: Reports: Coffee, Tea - Recreational Drug Use Recreational Drug Use: No - Living Situation & Occupation Living situation: Reports: (Spouse about 1-1/2 years ago from aggressive ovarian cancer.), Alone Occupation: Retired H&P Review of Systems - Review of Systems: Review Of Systems: See Below General: Reports: No Symptoms. Denies: Fever, Chills, Malaise HEENT: Reports: No Symptoms. Denies: Dysphasia, Sore Throat Pulmonary: Reports: No Symptoms. Denies: Shortness of Breath, Wheezing Cardiovascular: Reports: No Symptoms. Denies: Chest Pain, Palpitations, Orthopnea, PND, Edema, Lightheadedness, Syncope Gastrointestinal: Reports: Abdominal Pain, Black Stool. Denies: Hematemesis, Hematochezia Genitourinary: Reports: No Symptoms. Denies: Dysuria, Frequency Musculoskeletal: Reports: No Symptoms Skin: Reports: No Symptoms Psychiatric: Reports: No Symptoms. Denies: Confusion Neurological: Reports: No Symptoms Hematologic/Lymphatic: Reports: Anemia Exam - Exam Exam: See Below - Vital Signs Vital Signs: Last Vital Signs Temp 97.7 F 12/12/18 14:39 Pulse 70 12/12/18 14:39 Resp 16 12/12/18 14:39 BP 136/76 12/12/18 14:39 Pulse Ox 97 12/12/18 14:39 Weight: 117 lb - Exam General: Alert, Oriented, Cooperative HEENT: Conjunctiva Clear, EOMI, Mucosa Moist & [place], Pupils Equal, Pupils Reactive Neck: Supple, Trachea Midline. No: Lymphadenopathy Lungs: Clear to Auscultation, Normal Respiratory Effort Cardiovascular: Regular Rate, Irregular Rhythm GI/Abdominal Exam: Normal Bowel Sounds, Soft, Tender (Mild right lower quadrant tenderness without guarding or rebound.). No: Distended, Guarding, Rigid, Rebound Rectal (Males) Exam: Deferred Back Exam: Normal Inspection Extremities: Normal Inspection, Normal Range of Motion Peripheral Pulses: 2+: Posterior Tibial (L), Posterior Tibial (R), Dorsalis Pedis (L), Dorsalis Pedis (R) Skin: Warm, Dry, Intact Neurological: Cranial Nerves Intact Neuro Extensive - Mental Status: Alert, Normal Mood/Affect, Normal Cognition, Memory Intact Neuro Extensive - Motor, Sensory, Reflexes: CN II-XII Intact Psychiatric: Alert, Normal Affect, Normal Mood - Patient Data Lab Results Last 24 hrs: Laboratory Results - last 24 hr 12/12/18 12/12/18 12/12/18 Range/Units 11:45 11:45 11:45 WBC 9.56 H (4.23-9.07) K/mm3 RBC 3.55 L (4.63-6.08) M/mm3 Hgb 11.3 L (13.7-17.5) gm/L Hct 34.2 L (40.1-51.0) % MCV 96.3 H (79.0-92.2) fl MCH 31.8 (25.7-32.2) pg MCHC 33.0 (32.2-35.5) g/dl RDW Std Deviation 42.8 (35.1-43.9) fL Plt Count 74 L (163-337) K/mm3 MPV 11.3 (9.4-12.3) fl Neutrophils % (Manual) 90 H (40-60) % Band Neutrophils % 0 (0-10) % Lymphocytes % (Manual) 8 L (20-40) % Atypical Lymphs % 0 % Monocytes % (Manual) 2 (2-10) % Eosinophils % (Manual) 0 L (0.8-7.0) % Basophils % (Manual) 0 L (0.2-1.2) Platelet Estimate Decreased Plt Morphology Comment See note RBC Morph Comment Normal Sodium 133 L (136-145) mEq/L Potassium 4.3 (3.5-5.1) mEq/L Chloride 100 (98-107) mEq/L Carbon Dioxide 19 L (21-32) mEq/L Anion Gap 18.3 H (5-15) BUN 38 H (7-18) mg/dL Creatinine 1.5 H (0.7-1.3) mg/dL Est Cr Clr Drug Dosing 27.52 mL/min Estimated GFR (MDRD) 45 (>60) mL/min BUN/Creatinine Ratio 25.3 H (14-18) Glucose 93 (83-115) mg/dL Calcium 8.9 (8.5-10.1) mg/dL Total Bilirubin 0.5 (0.2-1.0) mg/dL AST 39 H (15-37) U/L ALT 16 (16-63) U/L Alkaline Phosphatase 123 H (46-116) U/L Troponin I 0.145 H* (0.00-0.056) ng/mL Total Protein 6.1 L (6.4-8.2) g/dl Albumin 2.7 L (3.4-5.0) g/dl Globulin 3.4 gm/dL Albumin/Globulin Ratio 0.8 L (1-2) Urine Color (Yellow) Urine Appearance (Clear) Urine pH (5.0-8.0) Ur Specific [place] (1.005-1.030) Urine Protein (Negative) Urine Glucose (UA) (Negative) Urine Ketones (Negative) Urine Occult Blood (Negative) Urine Nitrite (Negative) Urine Bilirubin (Negative) Urine Urobilinogen (0.2-1.0) Ur Leukocyte Esterase (Negative) Urine RBC (0-5) /hpf Urine WBC (0-5) /hpf Ur Epithelial Cells (0-5) /hpf Urine Bacteria (FEW) /hpf Hyaline Casts (0-5) /lpf Urine Mucus (FEW) /hpf 12/12/18 Range/Units 12:45 WBC (4.23-9.07) K/mm3 RBC (4.63-6.08) M/mm3 Hgb (13.7-17.5) gm/L Hct (40.1-51.0) % MCV (79.0-92.2) fl MCH (25.7-32.2) pg MCHC (32.2-35.5) g/dl RDW Std Deviation (35.1-43.9) fL Plt Count (163-337) K/mm3 MPV (9.4-12.3) fl Neutrophils % (Manual) (40-60) % Band Neutrophils % (0-10) % Lymphocytes % (Manual) (20-40) % Atypical Lymphs % % Monocytes % (Manual) (2-10) % Eosinophils % (Manual) (0.8-7.0) % Basophils % (Manual) (0.2-1.2) Platelet Estimate Plt Morphology Comment RBC Morph Comment Sodium (136-145) mEq/L Potassium (3.5-5.1) mEq/L Chloride (98-107) mEq/L Carbon Dioxide (21-32) mEq/L Anion Gap (5-15) BUN (7-18) mg/dL Creatinine (0.7-1.3) mg/dL Est Cr Clr Drug Dosing mL/min Estimated GFR (MDRD) (>60) mL/min BUN/Creatinine Ratio (14-18) Glucose (83-115) mg/dL Calcium (8.5-10.1) mg/dL Total Bilirubin (0.2-1.0) mg/dL AST (15-37) U/L ALT (16-63) U/L Alkaline Phosphatase (46-116) U/L Troponin I (0.00-0.056) ng/mL Total Protein (6.4-8.2) g/dl Albumin (3.4-5.0) g/dl Globulin gm/dL Albumin/Globulin Ratio (1-2) Urine Color Yellow (Yellow) Urine Appearance Clear (Clear) Urine pH 5.5 (5.0-8.0) Ur Specific [place] 1.020 (1.005-1.030) Urine Protein 1+ H (Negative) Urine Glucose (UA) Negative (Negative) Urine Ketones Trace H (Negative) Urine Occult Blood Negative (Negative) Urine Nitrite Negative (Negative) Urine Bilirubin 1+ H (Negative) Urine Urobilinogen 0.2 (0.2-1.0) Ur Leukocyte Esterase Negative (Negative) Urine RBC 0-5 (0-5) /hpf Urine WBC 0-5 (0-5) /hpf Ur Epithelial Cells Not seen (0-5) /hpf Urine Bacteria Few (FEW) /hpf Hyaline Casts 5-10 H (0-5) /lpf Urine Mucus Few (FEW) /hpf Result Diagrams: 12/12/18 11:45 12/12/18 11:45 EKG INTERPRETATION EKG Date: 12/12/18 Rhythm: Other (Ventricular paced complexes with multifocal PVCs) - Problem List (1) Elevated troponin SNOMED Code(s): 150797997, 015820274, 115176282 ICD Code: R74.8 - ABNORMAL LEVELS OF OTHER SERUM ENZYMES Status: Acute Current Visit: Yes (2) Anemia SNOMED Code(s): 227637979 ICD Code: D64.9 - ANEMIA, UNSPECIFIED Status: Acute Current Visit: Yes Qualifiers: Anemia type: unspecified type Qualified Code(s): D64.9 - Anemia, unspecified (3) Thrombocytopenia SNOMED Code(s): 939360397 ICD Code: D69.6 - THROMBOCYTOPENIA, UNSPECIFIED Status: Acute Current Visit: Yes (4) Anorexia SNOMED Code(s): 64530805 ICD Code: R63.0 - ANOREXIA Status: Acute Current Visit: Yes (5) Mass in rectum SNOMED Code(s): 855996108 ICD Code: K62.9 - DISEASE OF ANUS AND RECTUM, UNSPECIFIED Status: Acute Current Visit: Yes (6) Melena SNOMED Code(s): 6279913 ICD Code: K92.1 - MELENA Status: Acute Current Visit: Yes Problem List Initiated/Reviewed/Updated: Yes Orders Last 24hrs: Active Orders 24 hr Category Date Time Status Patient Status [ADT] Stat ADT 12/12/18 13:52 Active EKG Documentation Completion [RC] STAT Care 12/12/18 11:50 Active Lactated Ringers [Ringers, Lactated] 1,000 ml Med 12/12/18 12:00 Active IV ASDIRECTED Code Status [Resuscitation Status] Routine Resus Stat 12/12/18 15:04 Ordered Medication Orders Lactated Ringer's (Ringers, Lactated) 1,000 mls @ 100 mls/hr IV ASDIRECTED BLAKE Last Admin: 12/12/18 12:01 Dose: 100 mls/hr Assessment/Plan Comment:: Elevated Troponin - Patient's previous troponin from October 2017 appears to be around 0.09. Today's troponin of 0.145 is significantly higher - Monitor serial troponin - pt. counseled about possibility of myocardial injury and the best facility for treatment of cardiac injury would be in a facility with cardiology and cath. abilities. - Pt. does not want to be transfer out and understands the risk or worsening cardiac injury, function or even . Melena - hx of Gastric cancer with gastrectomy in October of 2013. He was told he was cancer free last fall. - Pt. had an episode of black stools two days ago and today had to rectal exams positive for Hemoccult blood, but patient is taking iron supplements - I recommended surgical consult, but patient refuses at this time. He does not want any surgical procedures or endoscopy at this time - Monitor hemoglobin closely. - Fluid resuscitate. Right lower quadrant Abdominal pain - Patient was decorating machine tender in the right lower quadrant. - CT scan of the abdomen and pelvis done December 11, 2018 demonstrated - small bilateral pleural effusions, slightly greater on the right. 2 low density lesions in the liver, most likely representing cysts. Thickened trabeculated appearance of the bladder wall may be related to infection or outlet obstruction. Asymmetric thickening of the rectum on the left. - Continue Tylenol for pain. - Lactic acid and lipase to help rule out ischemic bowel - Reassess in the morning Thrombocytopenia - This is a new finding. We will monitor platelets closely. Anorexia - Encourage diet. Patient's current problem with eating may be due to recent dental work. CHF - Strict I's and O's and daily weights. Hypotension in the clinic - Hold hydrochlorothiazide. - Fluid resuscitation COPD stable VTE prophylaxis with SCDs
[2018-12-12] MEDS: Sodium Chloride 0.9% 1,000 ML IV SCH (17:11)
[2018-12-12] MEDS: Dronabinol 2.5 MG Cap PO SCH (17:12)
[2018-12-12] MEDS: Acetaminophen 325 MG Tab PO PRN ×2 (17:46→23:27)
[2018-12-12] MEDS ORDERED: Metoprolol Succinate 25 MG Tab.ER PO SCH (21:00)
[2018-12-13] MEDS: Sodium Chloride 0.9% 1,000 ML IV SCH (04:17)
[2018-12-13] MEDS: Acetaminophen 325 MG Tab PO PRN ×2 (07:01→14:45)
[2018-12-13] MEDS ORDERED: Finasteride 5 MG Tab PO SCH (09:00)
[2018-12-13] MEDS ORDERED: Aspirin 81 MG Tab.EC PO SCH (09:00)
[2018-12-13] MEDS ORDERED: Sertraline 50 MG Tab PO SCH (09:00)
[2018-12-13] MEDS ORDERED: Tamsulosin 0.4 MG Cap.ER PO SCH (09:00)
[2018-12-13] MEDS ORDERED: Pantoprazole 40 MG Vial IVPUSH SCH (09:00)
[2018-12-13] MEDS: Dronabinol 2.5 MG Cap PO SCH (09:16)
--- NOTE | 2018-12-13 13:33 | PCM.DCSUM1 ---
Discharge Summary - Hospital Course Free Text/Narrative:: History and hospital course 83-year-old male is admitted in observation status through the ER for lower abdominal pain and elevated cardiac enzymes. Patient has a history of stomach cancer in 2013 with a 95% gastrectomy. He was seen in fall of this year and told he was cancer free. Over the last 2 days patient has had anorexia with worsening right lower quadrant pain. He was seen at his primary care provider's clinic yesterday and a CT scan was ordered. CT found small bilateral pleural effusions, slightly greater on the right. 2 low density lesions in the liver, most likely representing cysts. Thickened trabeculated appearance of the bladder wall may be related to infection or outlet obstruction. Asymmetric thickening of the rectum on the left. Patient was seen again today by his primary care physician and a rectal exam was performed finding an irregular, firm feeling mass. Patient has reported 10-20 pound weight loss over the last 3 months. He does state that he had dental extractions done approximately 3 months ago and has not had his full set of dentures fitted. He and his daughter do think that this is partially the cause of his weight loss. Patient has a history of anemia and is currently on iron supplements. In the emergency room he did have a rectal exam and stool was black and positive Hemoccult study. Patient states that 2 days ago was his last bowel movement and it was black. He had a cramping pain just after eating yogurt and then a black stool. According to the patient and daughter he did have an anoscopy done in the clinic. Blood work done in the clinic this morning showed a white count of 11.2, hemoglobin of 12.2, and platelets of 87,000. Metabolic panel demonstrated a BUN of 42 and a creatinine of 1.57. In the emergency room patient was given fluids and his abdominal pain stopped at that time. He also states that when he took Tylenol this morning it helped his pain. He has been taking more Tylenol over the last few days because of his abdominal pain. His abdominal pain is achy to sharp. It is suprapubic to the right lower quadrant. Tylenol, a massage chair, and food do seem to make it better. Nothing seems to make it worse. Patient denies any chest pain, epigastric pain, shortness of breath, PND, or orthopnea. He does not want to be resuscitated and does not want to have surgery or endoscopy done at this time. Patient also has a history of CHF, COPD, and BPH. He is followed by urology for his BPH. Patient has had a right inguinal surgery repair. Hospital course Patient was rehydrated and observed over night. He had no more episodes of black stool and he did have one normal bowel movement. Patient requested no additional procedures or workup of his rectal mass. Patient did not want to have an upper or lower endoscopy while he was in the hospital. He was fairly adamant that he wanted to go home on Sunday before the storm. Patient also wants only comfort care and does not want any more surgeries. I discussed with him the increased likelihood of poor outcomes to include bleeding and/or . Patient understands and states if he were to he would not want to do so in the hospital at home in his recliner. I counseled the patient regards to his low platelets, but they are not low enough to cause active bleeding. Platelets did stabilize while in the hospital at 69,000. Patient was started on Protonix and will go home with a prescription of 40 mg a day. I did stop the patient's hydrochlorothiazide secondary to slight hyponatremia and low blood pressure initially. He will follow-up with his primary care provider early next week. Diagnosis: Stroke: No - Discharge Data Discharge Date: 12/13/18 Discharge Disposition: Home, Self-Care 01 Condition: Fair - Discharge Diagnosis/Problem(s) (1) Elevated troponin SNOMED Code(s): 037577337, 967964332, 987705403 ICD Code: R74.8 - ABNORMAL LEVELS OF OTHER SERUM ENZYMES Status: Acute Current Visit: Yes (2) Anemia SNOMED Code(s): 538331880 ICD Code: D64.9 - ANEMIA, UNSPECIFIED Status: Acute Current Visit: Yes Qualifiers: Anemia type: unspecified type Qualified Code(s): D64.9 - Anemia, unspecified (3) Thrombocytopenia SNOMED Code(s): 662312952 ICD Code: D69.6 - THROMBOCYTOPENIA, UNSPECIFIED Status: Acute Current Visit: Yes (4) Anorexia SNOMED Code(s): 05076495 ICD Code: R63.0 - ANOREXIA Status: Acute Current Visit: Yes (5) Mass in rectum SNOMED Code(s): 704776284 ICD Code: K62.9 - DISEASE OF ANUS AND RECTUM, UNSPECIFIED Status: Acute Current Visit: Yes (6) Melena SNOMED Code(s): 6546656 ICD Code: K92.1 - MELENA Status: Acute Current Visit: Yes - Patient Summary/Data Consults: Consultations 12/12/18 16:24 Consult to Physical Therapy [PT Evaluation and Treatment] [CONS] Routine Recommended Follow-up Testing/Procedures: CBC and CMP early next week. Hospital Course: Patient had a good night and slept well. He had no more episodes of black tarry stools and no pain. Patient had fluids running most tonight which would account for the slight increase in his BNP. Patient has no shortness breath, orthopnea, or PND. Patient is requesting to go home. Patient did have Tylenol 2 for back pain. He does not have any abdominal pain. Troponins came back stable and are likely secondary to CHF and chronic renal sufficiency. Patient has had no chest pain or epigastric pain. No nausea or vomiting. Exam: Blood pressure 126/72, temperature 98.4, pulse of 71, General: well-appearing male in no acute distress. Heart regular rate and rhythm Lungs clear auscultation bilaterally without wheezes rales or rhonchi. Abdomen soft, nontender, nondistended. Bowel sounds are present and normal. Lower extremities were soft, not swollen, no redness, and nontender. Assessment/plan of active hospital conditions 1. Elevated cardiac enzymes: This is likely secondary to CHF and chronic renal insufficiency. Patient has no chest pain or cardiac symptoms. Also he does not want any further workup. Patient did not want transfer to [place] for urology consultation. 2. Melena: One normal bowel movement here in the hospital. He does not want upper or lower endoscopy. He requests no more procedures. Patient was started on Protonix 40 mg a day. 3. Thrombocytopenia: Patient came in with platelets at 77,000. After rehydration they've stabilized at 69,000. He should have a follow-up in a few days to repeat CBC and CMP. 4. Mild hyponatremia: Hydrochlorothiazide was stopped. He will need CMP next week. 5. Anemia: Patient is on iron at home. This also could be why he had some episodes of guaiac positive stool. He will continue on his iron. His hemoglobin stayed stable during hospitalization. 6. Possible mass in the rectum: Patient did not want further evaluation at this time. Patient will discuss this with his primary care provider. 7. Anorexia: Patient had a good appetite here in the hospital. It appears that his recent dental extractions and not having a full set of dentures is worsening his by mouth intake. This was discussed with the patient. He should have a full set of dentures in the next week. - Patient Instructions Diet: Heart Healthy Diet Activity: As Tolerated Driving: Do Not Drive (Until seen and discussed the PCP.) Showering/Bathing: May Shower Notify Provider of: Increased Pain, Nausea and/or Vomiting Other/Special Instructions: Return to ER if black tarry stools return. - Discharge Plan *PRESCRIPTION DRUG MONITORING PROGRAM REVIEWED*: No *COPY OF PRESCRIPTION DRUG MONITORING REPORT IN PATIENT NICHELLE: No Prescriptions/Med Rec: Pantoprazole Sodium [Protonix] 40 mg PO QAM #30 tablet. Home Medications: Home Meds Aspirin [Halfprin] 81 mg PO DAILY 07/21/15 [History] Finasteride [Proscar] 5 mg PO DAILY 07/21/15 [History] Tamsulosin [Flomax] 0.4 mg PO DAILY 07/21/15 [History] Metoprolol Succinate [Toprol XL] 12.5 mg PO BEDTIME 10/31/17 [History] Sertraline HCl 50 mg PO DAILY 10/31/17 [History] Ubidecarenone [Coq-10] 200 mg PO DAILY 10/31/17 [History] Dronabinol [Marinol] 2.5 mg PO BIDAC 11/01/17 [History] Cyanocobalamin (Vitamin B12) [Vitamin B12] 500 mcg PO DAILY #30 tablet 11/03/17 [Rx] Ferrous Sulfate 325 mg PO WITHBREAKFAST #30 tablet 11/03/17 [Rx] Calcium Carbonate [Calcium] 500 mg pe PO DAILY 12/12/18 [History] RABEprazole Sodium [Aciphex] 20 mg PO DAILY 12/12/18 [History] Acetaminophen [Tylenol] 650 mg PO Q6H PRN tablet 12/13/18 [Rx] Pantoprazole Sodium [Protonix] 40 mg PO QAM #30 tablet. 12/13/18 [Rx] Oxygen Therapy Mode: Room Air Patient Handouts: Anemia, Cardiac-Specific Troponin I and T Test Referrals: Henrry Elizalde MD [Primary Care Provider] - 12/19/18 4:00 pm (Please follow-up with Dr. Elizalde on , December 19, 2018 at 4:00 PM. Needs CBC and CMP.) - Discharge Summary/Plan Comment DC Time >30 min.: Yes Discharge Summary/Plan Comment: Patient was rehydrated and observed over night. He had no more episodes of black stool and he did have one normal bowel movement. Patient requested no additional procedures or workup of his rectal mass. Patient did not want to have an upper or lower endoscopy while he was in the hospital. He was fairly adamant that he wanted to go home on Sunday before the storm. Patient also wants only comfort care and does not want any more surgeries. I discussed with him the increased likelihood of poor outcomes to include bleeding and/or . Patient understands and states if he were to he would not want to do so in the hospital at home in his recliner. I counseled the patient regards to his low platelets, but they are not low enough to cause active bleeding. Platelets did stabilize while in the hospital at 69,000. Patient was started on Protonix and will go home with a prescription of 40 mg a day. I did stop the patient's hydrochlorothiazide secondary to slight hyponatremia and low blood pressure initially. He will follow-up with his primary care provider early next week. - Patient Data Vitals - Most Recent: Last Vital Signs Temp 98.4 F 12/13/18 08:32 Pulse 71 12/13/18 08:32 Resp 15 12/13/18 08:32 BP 126/72 12/13/18 08:32 Pulse Ox 96 12/13/18 08:32 Orthostatic Blood Pressure [ 102/51 Sitting] Orthostatic Blood Pressure [ 97/61 Standing] Orthostatic Blood Pressure [ 119/98 Supine] Weight - Most Recent: 117 lb I&O - Last 24 hours: Intake & Output 12/12/18 12/13/18 12/13/18 22:59 06:59 14:59 Intake Total 518 1250 180 Output Total 200 525 Balance 318 725 180 Lab Results - Last 24 hrs: Laboratory Results - last 24 hr 12/12/18 12/12/18 12/12/18 Range/Units 16:00 16:00 16:00 WBC (4.23-9.07) K/mm3 RBC (4.63-6.08) M/mm3 Hgb (13.7-17.5) gm/L Hct (40.1-51.0) % MCV (79.0-92.2) fl MCH (25.7-32.2) pg MCHC (32.2-35.5) g/dl RDW Std Deviation (35.1-43.9) fL Plt Count (163-337) K/mm3 MPV (9.4-12.3) fl Neut % (Auto) (34.0-67.9) % Lymph % (Auto) (21.8-53.1) % [place] % (Auto) (5.3-12.2) % Eos % (Auto) (0.8-7.0) Baso % (Auto) (0.1-1.2) % Neut # (Auto) (1.78-5.38) K/mm3 Lymph # (Auto) (1.32-3.57) K/mm3 [place] # (Auto) (0.30-0.82) K/mm3 Eos # (Auto) (0.04-0.54) K/mm3 Baso # (Auto) (0.01-0.08) K/mm3 Manual Slide Review Sodium (136-145) mEq/L Potassium (3.5-5.1) mEq/L Chloride (98-107) mEq/L Carbon Dioxide (21-32) mEq/L Anion Gap (5-15) BUN (7-18) mg/dL Creatinine (0.7-1.3) mg/dL Est Cr Clr Drug Dosing mL/min Estimated GFR (MDRD) (>60) mL/min BUN/Creatinine Ratio (14-18) Glucose (83-115) mg/dL Lactic Acid 1.0 (0.4-2.0) mmol/L Calcium (8.5-10.1) mg/dL Phosphorus (2.6-4.7) mg/dL Magnesium (1.8-2.4) mg/dl Total Bilirubin (0.2-1.0) mg/dL AST (15-37) U/L ALT (16-63) U/L Alkaline Phosphatase (46-116) U/L Troponin I (0.00-0.056) ng/mL NT-Pro-B Natriuret Pep 5090 H (0-450) pg/mL Total Protein (6.4-8.2) g/dl Albumin (3.4-5.0) g/dl Globulin gm/dL Albumin/Globulin Ratio (1-2) Lipase 659 H (73-393) U/L 12/12/18 12/13/18 12/13/18 Range/Units 16:00 06:58 06:58 WBC 9.29 H (4.23-9.07) K/mm3 RBC 3.37 L (4.63-6.08) M/mm3 Hgb 10.8 L (13.7-17.5) gm/L Hct 32.4 L (40.1-51.0) % MCV 96.1 H (79.0-92.2) fl MCH 32.0 (25.7-32.2) pg MCHC 33.3 (32.2-35.5) g/dl RDW Std Deviation 41.9 (35.1-43.9) fL Plt Count 65 L (163-337) K/mm3 MPV 11.1 (9.4-12.3) fl Neut % (Auto) 80.7 H (34.0-67.9) % Lymph % (Auto) 8.3 L (21.8-53.1) % [place] % (Auto) 7.1 (5.3-12.2) % Eos % (Auto) 3.1 (0.8-7.0) Baso % (Auto) 0.2 (0.1-1.2) % Neut # (Auto) 7.49 H (1.78-5.38) K/mm3 Lymph # (Auto) 0.77 L (1.32-3.57) K/mm3 [place] # (Auto) 0.66 (0.30-0.82) K/mm3 Eos # (Auto) 0.29 (0.04-0.54) K/mm3 Baso # (Auto) 0.02 (0.01-0.08) K/mm3 Manual Slide Review Abnormal smear Sodium 132 L (136-145) mEq/L Potassium 4.4 (3.5-5.1) mEq/L Chloride 100 (98-107) mEq/L Carbon Dioxide 19 L (21-32) mEq/L Anion Gap 17.4 H (5-15) BUN 28 H (7-18) mg/dL Creatinine 1.1 (0.7-1.3) mg/dL Est Cr Clr Drug Dosing 37.52 mL/min Estimated GFR (MDRD) > 60 (>60) mL/min BUN/Creatinine Ratio 25.5 H (14-18) Glucose 81 L (83-115) mg/dL Lactic Acid (0.4-2.0) mmol/L Calcium 8.0 L (8.5-10.1) mg/dL Phosphorus 2.9 (2.6-4.7) mg/dL Magnesium 1.7 L (1.8-2.4) mg/dl Total Bilirubin 0.5 (0.2-1.0) mg/dL AST 37 (15-37) U/L ALT 14 L (16-63) U/L Alkaline Phosphatase 112 (46-116) U/L Troponin I 0.107 H* 0.128 H* (0.00-0.056) ng/mL NT-Pro-B Natriuret Pep (0-450) pg/mL Total Protein 5.5 L (6.4-8.2) g/dl Albumin 2.3 L (3.4-5.0) g/dl Globulin 3.2 gm/dL Albumin/Globulin Ratio 0.7 L (1-2) Lipase (73-393) U/L 12/13/18 12/13/18 Range/Units 06:58 12:58 WBC 9.80 H (4.23-9.07) K/mm3 RBC 3.36 L (4.63-6.08) M/mm3 Hgb 10.7 L (13.7-17.5) gm/L Hct 32.0 L (40.1-51.0) % MCV 95.2 H (79.0-92.2) fl MCH 31.8 (25.7-32.2) pg MCHC 33.4 (32.2-35.5) g/dl RDW Std Deviation 41.9 (35.1-43.9) fL Plt Count 69 L (163-337) K/mm3 MPV 10.9 (9.4-12.3) fl Neut % (Auto) 84.0 H (34.0-67.9) % Lymph % (Auto) 6.6 L (21.8-53.1) % [place] % (Auto) 6.7 (5.3-12.2) % Eos % (Auto) 2.0 (0.8-7.0) Baso % (Auto) 0.2 (0.1-1.2) % Neut # (Auto) 8.22 H (1.78-5.38) K/mm3 Lymph # (Auto) 0.65 L (1.32-3.57) K/mm3 [place] # (Auto) 0.66 (0.30-0.82) K/mm3 Eos # (Auto) 0.20 (0.04-0.54) K/mm3 Baso # (Auto) 0.02 (0.01-0.08) K/mm3 Manual Slide Review Sodium (136-145) mEq/L Potassium (3.5-5.1) mEq/L Chloride (98-107) mEq/L Carbon Dioxide (21-32) mEq/L Anion Gap (5-15) BUN (7-18) mg/dL Creatinine (0.7-1.3) mg/dL Est Cr Clr Drug Dosing mL/min Estimated GFR (MDRD) (>60) mL/min BUN/Creatinine Ratio (14-18) Glucose (83-115) mg/dL Lactic Acid (0.4-2.0) mmol/L Calcium (8.5-10.1) mg/dL Phosphorus (2.6-4.7) mg/dL Magnesium (1.8-2.4) mg/dl Total Bilirubin (0.2-1.0) mg/dL AST (15-37) U/L ALT (16-63) U/L Alkaline Phosphatase (46-116) U/L Troponin I (0.00-0.056) ng/mL NT-Pro-B Natriuret Pep 6647 H (0-450) pg/mL Total Protein (6.4-8.2) g/dl Albumin (3.4-5.0) g/dl Globulin gm/dL Albumin/Globulin Ratio (1-2) Lipase (73-393) U/L Med Orders - Current: Current Medications Acetaminophen (Tylenol) 650 mg PO Q6H PRN PRN Reason: Pain Last Admin: 12/13/18 07:01 Dose: 650 mg Aspirin (Halfprin) 81 mg PO DAILY [facility] Last Admin: 12/13/18 09:19 Dose: 81 mg Finasteride (Proscar) 5 mg PO DAILY [facility] Last Admin: 12/13/18 09:18 Dose: 5 mg Metoprolol Succinate (Toprol Xl) 12.5 mg PO BEDTIME [facility] Last Admin: 12/12/18 21:05 Dose: Not Given Pantoprazole Sodium (Protonix Iv) 40 mg IVPUSH DAILY [facility] Last Admin: 12/13/18 09:18 Dose: 40 mg Sertraline HCl (Zoloft) 50 mg PO DAILY [facility] Last Admin: 12/13/18 09:18 Dose: 50 mg Tamsulosin HCl (Flomax) 0.4 mg PO DAILY [facility] Last Admin: 12/13/18 09:18 Dose: 0.4 mg Discontinued Medications Dronabinol (Marinol) 2.5 mg PO BIDAC [facility] Last Admin: 12/13/18 09:16 Dose: Not Given Lactated Ringer's (Ringers, Lactated) 1,000 mls @ 100 mls/hr IV ASDIRECTED [facility] Last Admin: 12/12/18 12:01 Dose: 100 mls/hr Sodium Chloride (Normal Saline) 1,000 mls @ 75 mls/hr IV ASDIRECTED [facility] Last Admin: 12/13/18 04:17 Dose: 75 mls/hr Pantoprazole Sodium (Protonix Iv) 80 mg IVPUSH BOLUS ONE Stop: 12/12/18 11:53 Last Admin: 12/12/18 11:58 Dose: 40 mg
[2018-12-13 15:36] VITALS: BP 115/63
== END 2018-12-13 15:18 | disposition home or self-care (01) ==
LOC: JD.ED 11:06 → JD.MS 13:52
PROVIDERS: ADMIT Family Medicine; ATTEND Family Medicine
DX: R74.8 Abnormal levels of other serum enzymes (principal); D64.9 Anemia, unspecified; D69.6 Thrombocytopenia, unspecified; R63.0 Anorexia; K62.9 Disease of anus and rectum, unspecified; K92.1 Melena; E87.1 Hypo-osmolality and hyponatremia; E78.00 Pure hypercholesterolemia, unspecified; J44.9 Chronic obstructive pulmonary disease, unspecified; K21.9 Gastro-esophageal reflux disease without esophagitis; M19.90 Unspecified osteoarthritis, unspecified site; E53.8 Deficiency of other specified B group vitamins; J90 Pleural effusion, not elsewhere classified; Z98.84 Bariatric surgery status; Z85.028 Personal history of other malignant neoplasm of stomach; Z79.82 Long term (current) use of aspirin; Z79.899 Other long term (current) drug therapy; Z88.0 Allergy status to penicillin
CPT/HCPCS: 36415; 80053; 81001; 83605; 83690; 83735; 83880; 84100; 84484; 85007; 85025; 85027; 93005; 96361; 96374; 97162; 99284; A9270; C9113; J7040; J7120; 93010; 96376; 99285; G0378

== ENCOUNTER 2018-12-26 13:31 | Inpatient (IN) | payer MEDICARE, OTHER ==
--- NOTE | 2018-12-26 14:41 | EDM.PDOC ---
ED HPI GENERAL MEDICAL PROBLEM - General Chief Complaint: Cardiovascular Problem Stated Complaint: ABDOMINAL PAIN Time Seen by Provider: 12/26/18 13:39 Source of Information: Reports: Patient, RN Notes Reviewed - History of Present Illness INITIAL COMMENTS - FREE TEXT/NARRATIVE: 83 year old male that has been brought here by family from [facility] for hospital admission. He was in the hospital about 2 weeks ago, details of that admission unknown to me at this time. He had a follow-up clinic appt. with his primary care provider Dr. Vincent one week ago and then a follow-up appointment again today. Family states that he has been more weak, dizzy, lightheaded, short of breath over the past several days. At the clinic he was found to have a drop of hemoglobin down to 10.9 from prior hemoglobin of 11.7. His BUN is elevated at 76, creatinine 1.81, found to be hypotensive, dehydrated. States he is not eating or drinking well. He is losing weight. They' re concerned about underlying malignancy. Platelets at the clinic today were only 26,000 which is a drop from 49,000 1 week ago. They do not want in transfer to [facility] and patient himself does not want to go to [facility]. They're interested in being hospitalized here for medical stabilization and then want to look at some type of long-term residential type placement. At this time he is living alone at home by himself, not doing well as discussed above. CODE STATUS DNR, DNI. - Related Data Allergies Allergy/AdvReac Type Severity Reaction Status Date / Time Penicillins Allergy Mild UNKNOWN Verified 12/12/18 11:26 Home Meds: Home Meds Aspirin [Halfprin] 81 mg PO DAILY 07/21/15 [History] Finasteride [Proscar] 5 mg PO DAILY 07/21/15 [History] Tamsulosin [Flomax] 0.4 mg PO DAILY 07/21/15 [History] Metoprolol Succinate [Toprol XL] 12.5 mg PO BEDTIME 10/31/17 [History] Sertraline HCl 50 mg PO DAILY 10/31/17 [History] Ubidecarenone [Coq-10] 200 mg PO DAILY 10/31/17 [History] Dronabinol [Marinol] 2.5 mg PO BIDAC 11/01/17 [History] Cyanocobalamin (Vitamin B12) [Vitamin B12] 500 mcg PO DAILY #30 tablet 11/03/17 [Rx] Ferrous Sulfate 325 mg PO WITHBREAKFAST #30 tablet 11/03/17 [Rx] Calcium Carbonate [Calcium] 500 mg pe PO DAILY 12/12/18 [History] RABEprazole Sodium [Aciphex] 20 mg PO DAILY 12/12/18 [History] Acetaminophen [Tylenol] 650 mg PO Q6H PRN tablet 12/13/18 [Rx] Pantoprazole Sodium [Protonix] 40 mg PO QAM #30 tablet. 12/13/18 [Rx] Past Medical History HEENT History: Reports: Cataract, Impaired Vision Other HEENT History: corrective lenses Cardiovascular History: Reports: High Cholesterol, [place], Pacemaker, SOB on Exertion Respiratory History: Reports: COPD Gastrointestinal History: Reports: GERD Other Gastrointestinal History: Gastric cancer with partial, 95%, gastrectomy in 2013 Genitourinary History: Reports: BPH, Prostate Disorder Musculoskeletal History: Reports: Arthritis, Back Pain, Chronic, Osteoarthritis Neurological History: Reports: None Psychiatric History: Reports: Depression Endocrine/Metabolic History: Reports: Osteoporosis Hematologic History: Reports: Anemia, B12 Deficiency Oncologic (Cancer) History: Reports: Other (See Below) Other Oncologic History: stomach cancer Dermatologic History: Reports: Other (See Below) Other Dermatologic History: skin cancer on nose, removed with no issues. - Infectious Disease History Infectious Disease History: Reports: Measles - Past Surgical History Head Surgeries/Procedures: Reports: None HEENT Surgical History: Reports: Cataract Surgery Cardiovascular Surgical History: Reports: Pacer GI Surgical History: Reports: Other (See Below) Other GI Surgeries/Procedures: States 95% of stomach removed Endocrine Surgical History: Reports: None Musculoskeletal Surgical History: Reports: Carpal Tunnel, Other (See Below) Other Musculoskeletal Surgeries/Procedures:: rotator cuff repair Social & Family History - Family History Family Medical History: Noncontributory - Tobacco Use Smoking Status *Q: Never Smoker Second Hand Smoke Exposure: No - Caffeine Use Caffeine Use: Reports: Coffee - Recreational Drug Use Recreational Drug Use: No - Living Situation & Occupation Living situation: Reports: (Spouse about 1-1/2 years ago from aggressive ovarian cancer.), Alone Occupation: Retired ED ROS GENERAL - Review of Systems Review Of Systems: See Below HEENT: Denies: Throat Pain Respiratory: Reports: Shortness of Breath Cardiovascular: Denies: Chest Pain GI/Abdominal: Reports: Decreased Appetite. Denies: Abdominal Pain, Vomiting Musculoskeletal: Reports: Back Pain (Chronic) Skin: Denies: Rash Neurological: Reports: Dizziness, Difficulty Walking (Generalized), Weakness ED EXAM, GENERAL - Physical Exam Exam: See Below General Appearance: Alert, No Apparent Distress, Cachetic (Patient looks frail, ill-appearing) Eye Exam: Bilateral Eye: PERRL Throat/Mouth: Other Head: Atraumatic (Oral mucosa is dry) Neck: Supple, Other (No JVD) Respiratory/Chest: Respiratory Distress. No: Rales (Mild tachypnea), Rhonchi, Wheezing Cardiovascular: Tachycardia GI/Abdominal: Soft, Non-Tender Back Exam: No: Vertebral Tenderness Extremities: No: Pedal Edema, Leg Pain, Increased Warmth, Redness Neurological: Alert, Oriented, No Motor/Sensory Deficits Skin Exam: Warm, Dry, Normal Color EKG INTERPRETATION EKG Date: 12/26/18 Rhythm: Other (Paced rhythm, rate 83) QRS: Wide ST-T: Other (T-wave inversions aVL, V5 and V6.) Course - Vital Signs Last Recorded V/S: Last Vital Signs Temp 98.7 F 12/26/18 13:40 Pulse 114 H 12/26/18 13:40 Resp 18 12/26/18 13:40 BP 156/143 H 12/26/18 13:40 Pulse Ox - Orders/Labs/Meds Orders: Active Orders 24 hr Category Date Time Status EKG 12 Lead [EKG Documentation Completion] [RC] STAT Care 12/26/18 14:27 Active Chest 1V Frontal [CR] Stat Exams 12/26/18 14:27 Taken TROPONIN I [CHEM] Stat Lab 12/26/18 14:45 Received Sodium Chloride 0.9% [Normal Saline] 1,000 ml Med 12/26/18 14:51 Active IV ONETIME Medication Orders Sodium Chloride (Normal Saline) 1,000 mls @ 999 mls/hr IV ONETIME ONE Stop: 12/26/18 15:51 Last Admin: 12/26/18 14:51 Dose: 999 mls/hr Meds: Medications Generic Name Dose Route Start Last Admin Trade Name Freq PRN Reason Stop Dose Admin Sodium Chloride 1,000 mls @ 999 mls/hr 12/26/18 14:51 12/26/18 14:51 Normal Saline IV 12/26/18 15:51 999 mls/hr ONETIME ONE Administration Discontinued Medications Generic Name Dose Route Start Last Admin Trade Name Ori PRN Reason Stop Dose Admin Sodium Chloride Confirm 12/26/18 14:48 Normal Saline Administered 12/26/18 14:49 Dose 1,000 mls @ as directed .ROUTE .[facility] - Re-Assessments/Exams Free Text/Narrative Re-Assessment/Exam: 12/26/18 15:00. Patient was sent here by Dr. Vincent for medical admission. They are disappointed that he had to be admitted through the ED. I have discussed with Dr. Sloan, Hospitalist strategic planning consultant who does accept patient for admission. Departure - Departure Time of Disposition: 14:45 Disposition: Admitted As Inpatient 65 Condition: Serious Clinical Impression: Renal insufficiency, Dehydration, Thrombocytopenia, Generalized weakness Anemia Qualifiers: Anemia type: unspecified type Qualified Code(s): D64.9 - Anemia, unspecified Referrals: Henrry Elizalde MD [Primary Care Provider] - Forms: ED Department Discharge - My Orders Last 24 Hours: My Active Orders 12/26/18 14:27 EKG 12 Lead [EKG Documentation Completion] [RC] STAT Chest 1V Frontal [CR] Stat 12/26/18 14:45 TROPONIN I [CHEM] Stat 12/26/18 14:51 Sodium Chloride 0.9% [Normal Saline] 1,000 ml IV ONETIME - Assessment/Plan Last 24 Hours: My Active Orders 12/26/18 14:27 EKG 12 Lead [EKG Documentation Completion] [RC] STAT Chest 1V Frontal [CR] Stat 12/26/18 14:45 TROPONIN I [CHEM] Stat 12/26/18 14:51 Sodium Chloride 0.9% [Normal Saline] 1,000 ml IV ONETIME
[2018-12-26] MEDS ORDERED: Sodium Chloride 0.9% 1,000 ML ONE (14:48)
[2018-12-26] MEDS ORDERED: Sodium Chloride 0.9% 1,000 ML IV ONE (14:51)
--- NOTE | 2018-12-26 15:25 | PCM.HP ---
H&P History of Present Illness - General Date of Service: 12/26/18 Admit Problem/Dx: Failure To Thrive Source of Information: Patient, Family, Old Records, Provider, RN Notes Reviewed History Limitations: Reports: Altered Mental Status, Physical Impairment - History of Present Illness Initial Comments - Free Text/Narative: This is an 83 yo elderly white male with past medical hx/o HTN, HLD, BPH, Chronic Anemia, Thrombocytopenia, Hx/o AR, Pacemaker, SOB on Exertion, COPD, GERD, Gastric CA S/p Partial Resection, Gastrectomy in 2013, OA/DJD, Back Pain, Osteoporosis, Anemia, B12 Deficiency, Cachexia and Depression who comes in for failure to thrive. He was just discharged here 2 weeks ago w/o post hospitalization care plan. He comes back essentially with similar presentation. He is now being admitted for end of life care. He is DNR/DNI/Comfort Measures - Related Data Allergies/Adverse Reactions: Allergies Allergy/AdvReac Type Severity Reaction Status Date / Time Penicillins Allergy Mild UNKNOWN Verified 12/12/18 11:26 Home Medications: Home Meds Aspirin [Halfprin] 81 mg PO DAILY 07/21/15 [History] Finasteride [Proscar] 5 mg PO DAILY 07/21/15 [History] Tamsulosin [Flomax] 0.4 mg PO DAILY 07/21/15 [History] Sertraline HCl 50 mg PO DAILY 10/31/17 [History] Ubidecarenone [Coq-10] 200 mg PO DAILY 10/31/17 [History] Dronabinol [Marinol] 2.5 mg PO BIDAC 11/01/17 [History] Cyanocobalamin (Vitamin B12) [Vitamin B12] 500 mcg PO DAILY #30 tablet 11/03/17 [Rx] RABEprazole Sodium [Aciphex] 20 mg PO DAILY 12/12/18 [History] Acetaminophen [Tylenol] 650 mg PO Q6H PRN tablet 12/13/18 [Rx] Ascorbate Calcium [Vitamin C] 500 mg PO DAILY 12/26/18 [History] Calcium Carbonate/Vitamin D3 [Calcium 500-Vit D3 200 Tablet] 1 tab PO DAILY [History] Ferrous Sulfate 325 mg PO WITHBREAKFAST PRN 12/26/18 [History] Acetaminophen/HYDROcodone [[place] 325-5 MG] 1 tab PO Q6H PRN #20 tablet 12/27/18 [Rx] Metoprolol Succinate [Toprol XL] 12.5 mg PO BEDTIME #0 12/27/18 [Rx] Polyethylene Glycol 3350 [MiraLAX] 17 gm PO DAILY PRN #6 packet 12/27/18 [Rx] Sennosides/Docusate Sodium [Senokot-S Tablet] 1 each PO DAILY PRN #30 tablet [Rx] hydroCHLOROthiazide [Hydrochlorothiazide] 12.5 mg PO DAILY #0 12/27/18 [Rx] Past Medical History HEENT History: Reports: Cataract, Impaired Vision Other HEENT History: corrective lenses Cardiovascular History: Reports: High Cholesterol, AR, Pacemaker, SOB on Exertion Respiratory History: Reports: COPD Gastrointestinal History: Reports: GERD Other Gastrointestinal History: Gastric cancer with partial, 95%, gastrectomy in 2013 Genitourinary History: Reports: BPH, Prostate Disorder Musculoskeletal History: Reports: Arthritis, Back Pain, Chronic, Osteoarthritis Neurological History: Reports: None Psychiatric History: Reports: Depression Endocrine/Metabolic History: Reports: Osteoporosis Hematologic History: Reports: Anemia, B12 Deficiency Oncologic (Cancer) History: Reports: Other (See Below) Other Oncologic History: stomach cancer Dermatologic History: Reports: Other (See Below) Other Dermatologic History: skin cancer on nose, removed with no issues. - Infectious Disease History Infectious Disease History: Reports: Measles - Past Surgical History Head Surgeries/Procedures: Reports: None HEENT Surgical History: Reports: Cataract Surgery Cardiovascular Surgical History: Reports: Pacer GI Surgical History: Reports: Other (See Below) Other GI Surgeries/Procedures: States 95% of stomach removed Endocrine Surgical History: Reports: None Musculoskeletal Surgical History: Reports: Carpal Tunnel, Other (See Below) Other Musculoskeletal Surgeries/Procedures:: rotator cuff repair Social & Family History - Family History Family Medical History: Noncontributory - Tobacco Use Smoking Status *Q: Never Smoker Second Hand Smoke Exposure: No - Caffeine Use Caffeine Use: Reports: Coffee - Recreational Drug Use Recreational Drug Use: No - Living Situation & Occupation Living situation: Reports: (Spouse about 1-1/2 years ago from aggressive ovarian cancer.), Alone Occupation: Retired H&P Review of Systems - Review of Systems: Review Of Systems: See Below General: Reports: Malaise, Weakness. Denies: Fever, Fatigue HEENT: Reports: No Symptoms Pulmonary: Reports: Shortness of Breath Cardiovascular: Reports: Lightheadedness. Denies: Chest Pain, Blood Pressure Problem Gastrointestinal: Reports: Black Stool, Decreased Appetite. Denies: Abdominal Pain, Nausea, Vomiting Genitourinary: Denies: Incontinence Musculoskeletal: Reports: No Symptoms Skin: Denies: Cyanosis, Mottled, Bruising, Pruritis Psychiatric: Denies: Depression, Anxiety, Agitation, Hallucinations Neurological: Reports: Dizziness, Weakness, Gait Disturbance. Denies: Confusion , Difficulty Walking Hematologic/Lymphatic: Reports: Anemia Immunologic: Reports: No Symptoms Exam - Exam Exam: See Below - Vital Signs Vital Signs: Last Vital Signs Temp 37.1 C 12/26/18 13:40 Pulse 114 H 12/26/18 13:40 Resp 18 12/26/18 13:40 BP 156/143 H 12/26/18 13:40 Pulse Ox Weight: 50.802 kg - Exam General: Lethargic, Other (cachetic) HEENT: Conjunctiva Clear, Nares Patent, Normal Nasal Septum, Pupils Equal, Pupils Reactive, Other (eyes sunken). No: Mucosa Moist & [place] Neck: Supple Lungs: Normal Respiratory Effort, Decreased Breath Sounds Cardiovascular: Tachycardia GI/Abdominal Exam: Normal Bowel Sounds, Soft, Non-Tender, No Organomegaly, No Distention, No Abnormal Bruit (Male) Exam: Deferred Rectal (Males) Exam: Deferred Back Exam: Normal Inspection, Decreased Range of Motion Extremities: Normal Inspection, Normal Range of Motion, Non-Tender, No Pedal Edema, Normal Capillary Refill Peripheral Pulses: 2+: Dorsalis Pedis (L), Dorsalis Pedis (R) Skin: Warm, Dry, Intact Neuro Extensive - Mental Status: Other Neuro Extensive - Motor, Sensory, Reflexes: CN II-XII Intact, Other (deferred). No: Abnormal Gait Psychiatric: Normal Affect, Normal Mood Problem List Initiated/Reviewed/Updated: Yes Orders Last 24hrs: Active Orders 24 hr Category Date Time Status EKG 12 Lead [EKG Documentation Completion] [RC] STAT Care 12/26/18 14:27 Active Chest 1V Frontal [CR] Stat Exams 12/26/18 14:27 Taken TROPONIN I [CHEM] Stat Lab 12/26/18 14:45 Received Sodium Chloride 0.9% [Normal Saline] 1,000 ml Med 12/26/18 14:51 Active IV ONETIME Medication Orders Sodium Chloride (Normal Saline) 1,000 mls @ 999 mls/hr IV ONETIME ONE Stop: 12/26/18 15:51 Last Admin: 12/26/18 14:51 Dose: 999 mls/hr Assessment/Plan Comment:: Assessment/Plan: Acute: Admission for End of Life Care - 2/2 GI Tumor plus thrombocytopenia - Progressive functional decline int he past 2 weeks - Noted cachexia and protein wasting - Refused further work up on his underlying malignancy - Offered Hospice/Palliative Care; family all agreed - SW/CM to work on placement Failure to Thrive/Malnutrition/Dehydration - Cachectic and Poor Intake (Anorexia) - Albumin 2.3 12/13/2018 - Dietary Consult - Continue Marinol 2.5 mg po BID; may increase frequency to TID AMS - 2/2 Metabolic/Toxic Encephalopathy - Check for UA Generalized Weakness - 2/2 poor intake and declining functional status Chronic: Anemia Elevated Troponin (Asymptomatic); Likely from LV Strain Thrombocytopenia Rectal Mass SOB on Exertion COB Melena Hx/o Gastric CA S/p Resection HF with Reduced EF 40-45% 11/01/2017 Cardiac Valvular Insufficiency Plan: Admit for End of Life Care Resume Home Med RT to assess and treat Comfort Measures Aspiration/Fall Precautions SW/CM for d/c planning Code status: DNR/DNI/CM Spoke to his family; gathered them in a room with our CM/SW (Lali) and went over with them what I think what's going on with Jose Armando and offered services that would benefit him. At bedside, I informed patient that his body seems to be giving up on him at this point and with untreated rectal mass, it unlikely that he is going to get any better or "things will ever get back to normal". However I recommended services that could provide comfort as well as to relieve pain and suffering. Patient expressed openness to it.
--- NOTE | 2018-12-26 15:25 | CR ---
Chest: Portable view of the chest was obtained. Comparison: Prior chest x-ray of 11/02/17. Increased density within the right lung base is seen. Mild area of pneumonia is possible as well as possible small right-sided pleural effusion. Heart is slightly enlarged. Tortuous thoracic aorta is seen. Pacemaker is noted. Previous left shoulder surgery is seen. Right shoulder prosthesis is noted. Minimal scarring is seen within the lateral left costophrenic angle. Impression: 1. Possible right lower lobe pneumonia and small right-sided pleural effusion. 2. Other incidental findings as noted above. Diagnostic code #3
[2018-12-26] MEDS ORDERED: Albuterol/Ipratropium 3.0-0.5 MG/3 ML Neb Soln NEB PRN (15:26)
[2018-12-26] MEDS ORDERED: HYDROmorphone 1 MG/ML Syringe IVPUSH PRN (15:26)
[2018-12-26] MEDS ORDERED: LORazepam 2 MG/ML SDV IV PRN (15:26)
[2018-12-26] MEDS ORDERED: Ondansetron 4 MG/2 ML SDV IV PRN (15:26)
[2018-12-26] MEDS ORDERED: Polyethylene Glycol 3350 Powder 17 GM Packet PO PRN (15:26)
[2018-12-26 17:27] VITALS: BP 102/76
[2018-12-26] MEDS: Acetaminophen 325 MG Tab PO PRN ×2 (17:50→21:50)
[2018-12-27] MEDS: Acetaminophen 325 MG Tab PO PRN ×2 (01:51→06:25)
[2018-12-27] MEDS ORDERED: Acetaminophen 325 MG Tab PO PRN (02:29)
[2018-12-27] MEDS ORDERED: Ferrous Sulfate 325 MG Tab PO PRN (02:29)
[2018-12-27] MEDS ORDERED: Pantoprazole 40 MG Tab.CR PO SCH (07:00)
[2018-12-27] MEDS: Acetaminophen/HYDROcodone 325-5 MG Tab PO PRN ×2 (08:45→14:07)
[2018-12-27] MEDS: Dronabinol 2.5 MG Cap PO SCH ×2 (08:46→10:59)
--- NOTE | 2018-12-27 08:48 | PCM.PN ---
- General Info Date of Service: 12/27/18 Admission Dx/Problem (Free Text): Failure To Thrive Subjective Update: Follow Up Functional Status: Reports: Pain Controlled, Tolerating Diet, Urinating. Denies : New Symptoms - Patient Data Vitals - Most Recent: Last Vital Signs Temp 36.8 C 12/27/18 01:00 Pulse 114 H 12/26/18 13:40 Resp 20 12/26/18 16:47 BP 102/76 12/26/18 16:44 Pulse Ox 100 12/26/18 17:33 Weight - Most Recent: 49.85 kg I&O - Last 24 Hours: Intake & Output 12/26/18 12/27/18 12/27/18 22:59 06:59 14:59 Intake Total 240 Output Total 575 Balance -335 Lab Results Last 24 Hours: Laboratory Results - last 24 hr 12/26/18 12/27/18 Range/Units 14:45 01:23 Troponin I 0.292 H* (0.00-0.056) ng/mL Urine Color Yellow (Yellow) Urine Appearance Clear (Clear) Urine pH 5.5 (5.0-8.0) Ur Specific [place] 1.020 (1.005-1.030) Urine Protein 1+ H (Negative) Urine Glucose (UA) Negative (Negative) Urine Ketones Trace H (Negative) Urine Occult Blood Negative (Negative) Urine Nitrite Negative (Negative) Urine Bilirubin 1+ H (Negative) Urine Urobilinogen 0.2 (0.2-1.0) Ur Leukocyte Esterase Negative (Negative) Urine RBC Not seen (0-5) /hpf Urine WBC 0-5 (0-5) /hpf Ur Epithelial Cells 0-5 (0-5) /hpf Amorphous Sediment Few H (NOT SEEN) /hpf Urine Bacteria Rare (FEW) /hpf Urine Mucus Not seen (FEW) /hpf Med Orders - Current: Current Medications Acetaminophen (Tylenol) 650 mg PO Q4H PRN PRN Reason: Pain (Mild 1-3)/fever Last Admin: 12/27/18 06:25 Dose: 650 mg Hydrocodone Bitart/Acetaminophen ([place] 325-5 Mg) 1 tab PO Q4H PRN PRN Reason: Pain (moderate 4-6) Last Admin: 12/27/18 08:45 Dose: 1 tab Albuterol/Ipratropium (Duoneb 3.0-0.5 Mg/3 Ml) 3 ml NEB Q4H PRN PRN Reason: Shortness Of Breath/wheezing Ascorbic Acid (Vitamin C) 500 mg PO DAILY [facility] Last Admin: 12/27/18 08:47 Dose: 500 mg Aspirin (Halfprin) 81 mg PO DAILY [facility] Last Admin: 12/27/18 08:47 Dose: 81 mg Calcium Carbonate (Calcium Carbonate/Vitamin D 600 Mg-200 Unit) 1 tab PO DAILY [facility] Last Admin: 12/27/18 08:46 Dose: 1 tab Cyanocobalamin (Vitamin B12) 500 mcg PO DAILY [facility] Last Admin: 12/27/18 08:46 Dose: 500 mcg Dronabinol (Marinol) 2.5 mg PO TIDAC [facility] Last Admin: 12/27/18 08:46 Dose: 2.5 mg Finasteride (Proscar) 5 mg PO DAILY [facility] Last Admin: 12/27/18 08:47 Dose: 5 mg Hydrochlorothiazide (Hydrochlorothiazide) 12.5 mg PO DAILY [facility] Last Admin: 12/27/18 08:45 Dose: 12.5 mg Hydromorphone HCl (Dilaudid) 0.25 mg IVPUSH Q2H PRN PRN Reason: Pain (severe 7-10) Lorazepam (Ativan) 0.25 mg IV Q6H PRN PRN Reason: Anxiety Metoprolol Succinate (Toprol Xl) 12.5 mg PO BEDTIME [facility] Ondansetron HCl (Zofran) 4 mg IV Q6H PRN PRN Reason: Nausea/Vomiting Pantoprazole Sodium (Protonix) 40 mg PO DAILY@0700 [facility] Last Admin: 12/27/18 06:24 Dose: 40 mg Polyethylene Glycol (Miralax) 17 gm PO DAILY PRN PRN Reason: Constipation Senna/Docusate Sodium (Senna Plus) 1 tab PO BID PRN PRN Reason: Constipation Sertraline HCl (Zoloft) 50 mg PO DAILY [facility] Last Admin: 12/27/18 08:45 Dose: 50 mg Tamsulosin HCl (Flomax) 0.4 mg PO DAILY [facility] Last Admin: 12/27/18 08:47 Dose: 0.4 mg Discontinued Medications Acetaminophen (Tylenol) 650 mg PO Q6H PRN PRN Reason: Pain Ferrous Sulfate (Ferrous Sulfate) 325 mg PO WITHBREAKFAST PRN PRN Reason: Other Sodium Chloride (Normal Saline) 1,000 mls @ 999 mls/hr IV ONETIME ONE Stop: 12/26/18 15:51 Last Admin: 12/26/18 14:51 Dose: 999 mls/hr Sodium Chloride (Normal Saline) Confirm Administered Dose 1,000 mls @ as directed .ROUTE .STK-MED ONE Stop: 12/26/18 14:49 Last Admin: 12/26/18 18:29 Dose: Not Given Non-Formulary Medication (Ubidecarenone) 200 mg PO DAILY [facility] - My Orders Last 24 Hours: My Active Orders 12/26/18 15:26 Oxygen Therapy [RC] PRN Up With Assistance [RC] DAILY Up ad Kimmie [RC] DAILY VTE/DVT Education [RC] PER UNIT ROUTINE Vital Signs [RC] Q4H Consult to Case Management/Dictating Transcribing Machine Servicer [CONS] Routine Consult to Spiritual Care [CONS] Routine Acetaminophen [Tylenol] 650 mg PO Q4H PRN Acetaminophen/HYDROcodone [[place] 325-5 MG] 1 tab PO Q4H PRN Albuterol/Ipratropium [DuoNeb 3.0-0.5 MG/3 ML] 3 ml NEB Q4H PRN Docusate Sodium/Sennosides [Senna Plus] 1 tab PO BID PRN HYDROmorphone [Dilaudid] 0.25 mg IVPUSH Q2H PRN LORazepam [Ativan] 0.25 mg IV Q6H PRN Ondansetron [Zofran] 4 mg IV Q6H PRN Polyethylene Glycol 3350 [MiraLAX] 17 gm PO DAILY PRN Resuscitation Status Routine 12/26/18 15:28 RT Aerosol Therapy [RC] ASDIRECTED Consult to Hospice [CONS] Routine Consult to Palliative Care [CONS] Routine 12/26/18 15:46 CULTURE URINE [RM] Stat 12/26/18 18:39 Communication Order [RC] DAILY 12/26/18 Dinner Regular Diet [DIET] 12/27/18 07:00 Dronabinol [Marinol] 2.5 mg PO TIDAC Pantoprazole [ProTONIX] 40 mg PO DAILY@0700 12/27/18 09:00 Ascorbic Acid [Vitamin C] 500 mg PO DAILY Aspirin [Halfprin] 81 mg PO DAILY Calcium Carbonate/Vitamin D3 [Calcium Carbonate/Vitamin D 600 MG-200 Unit] 1 tab PO DAILY Cyanocobalamin (Vitamin B12) [Vitamin B12] 500 mcg PO DAILY Finasteride [Proscar] 5 mg PO DAILY Sertraline [Zoloft] 50 mg PO DAILY Tamsulosin [Flomax] 0.4 mg PO DAILY hydroCHLOROthiazide 12.5 mg PO DAILY 12/27/18 21:00 Metoprolol Succinate [Toprol XL] 12.5 mg PO BEDTIME - Plan Plan:: Assessment/Plan: Acute: Admission for End of Life Care - 2/2 GI Tumor plus thrombocytopenia - Progressive functional decline int he past 2 weeks - Noted cachexia and protein wasting - Refused further work up on his underlying malignancy - Offered Hospice/Palliative Care; family all agreed - SW/CM to work on placement Failure to Thrive/Malnutrition - Cachectic and Poor Intake (Anorexia) - Albumin 2.3 12/13/2018 - Dietary Consult - Continue Marinol 2.5 mg po BID; may increase frequency to TID AMS - 2/2 Metabolic/Toxic Encephalopathy - Check for UA Chronic: Anemia Elevated Troponin (Asymptomatic); Likely from [place] Strain Thrombocytopenia Rectal Mass SOB on Exertion COB Melena Hx/o Gastric CA S/p Resection HF with Reduced EF 40-45% 11/01/2017 Cardiac Valvular Insufficiency Plan: Admit for End of Life Care Resume Home Med RT to assess and treat Comfort Measures Aspiration/Fall Precautions SW/CM for d/c planning Code status: DNR/DNI/CM Spoke to his family; gathered them at a room with our CM/SW (Lali)and went over with them what I think what's going on with Jose Armando and offered services that would take care his symptoms. At bedside, I informed patient that his body is giving up on him at this point and with the untreated rectal mass it unlikely that he is going to get better or "things will ever get back to normal ". However I recommended services that could provide comfort and pain relief; he agreed to to it.
[2018-12-27] MEDS ORDERED: RABEPRAZOLE SODIUM 20 MG PO SCH (09:00)
[2018-12-27] MEDS ORDERED: Tamsulosin 0.4 MG Cap.ER PO SCH (09:00)
[2018-12-27] MEDS ORDERED: Ascorbic Acid 500 MG Tab PO SCH (09:00)
[2018-12-27] MEDS ORDERED: Calcium Carbonate/Vitamin D3 600 MG-200 Units Tab PO SCH (09:00)
[2018-12-27] MEDS ORDERED: Aspirin 81 MG Tab.EC PO SCH (09:00)
[2018-12-27] MEDS ORDERED: Non-Formulary Medication 1 Each (Ubidecarenone 200 MG) PO SCH (09:00)
[2018-12-27] MEDS ORDERED: Sertraline 50 MG Tab PO SCH (09:00)
[2018-12-27] MEDS ORDERED: Hydrochlorothiazide 12.5 MG Cap PO SCH (09:00)
[2018-12-27] MEDS ORDERED: Finasteride 5 MG Tab PO SCH (09:00)
[2018-12-27] MEDS ORDERED: Cyanocobalamin (Vitamin B12) 1,000 MCG Tab PO SCH (09:00)
--- NOTE | 2018-12-27 13:25 | PCM.DCSUM1 ---
Discharge Summary - Hospital Course HPI Initial Comments: This is an 83 yo elderly white male with past medical hx/o HTN, HLD, BPH, Chronic Anemia, Thrombocytopenia, Hx/o PA, Pacemaker, SOB on Exertion, COPD, GERD, Gastric CA S/p Partial Resection, Gastrectomy in 2013, OA/DJD, Back Pain, Osteoporosis, Anemia, B12 Deficiency, Cachexia and Depression who comes in for failure to thrive. He was just discharged here 2 weeks ago w/o post hospitalization care plan. He comes back essentially with similar presentation. He is now being admitted for end of life care. He is DNR/DNI/Comfort Measures Diagnosis: Stroke: No Modified Ivania Scale: No Symptoms at All Modified Ivania Scale Score: 0 - Discharge Data Discharge Date: 12/27/18 Discharge Disposition: Home, Self-Care 01 Condition: Good - Discharge Diagnosis/Problem(s) (1) End of life care SNOMED Code(s): 182717829, 523193741 ICD Code: Z51.5 - ENCOUNTER FOR PALLIATIVE CARE Status: Acute (2) Failure to thrive SNOMED Code(s): 05130591 ICD Code: [id number] - Status: Acute (3) Cachexia SNOMED Code(s): 811115313 ICD Code: R64 - CACHEXIA Status: Acute (4) Anorexia SNOMED Code(s): 89649062 ICD Code: R63.0 - ANOREXIA Status: Chronic (5) History of cancer of stomach SNOMED Code(s): 122672747, 611974869 ICD Code: Z85.028 - PERSONAL HISTORY OF OTHER MALIGNANT NEOPLASM OF STOMACH Status: Chronic Priority: Low (6) Rectal mass SNOMED Code(s): 973048648 ICD Code: K62.9 - DISEASE OF ANUS AND RECTUM, UNSPECIFIED Status: Acute Problem Details: - Refused further work up (7) Generalized weakness SNOMED Code(s): 43225802 ICD Code: R53.1 - WEAKNESS Status: Acute (8) Dehydration SNOMED Code(s): 93269830 ICD Code: E86.0 - DEHYDRATION Status: Resolved - Patient Summary/Data Operative Procedure(s) Performed: None Complications: None Consults: Consultations 12/26/18 15:26 Consult to Case Management/Financial Writer [CONS] Routine Consult to Spiritual Care [CONS] Routine 03/21/19 15:28 Consult to Hospice [CONS] Routine Consult to Palliative Care [CONS] Routine Labs Pending at D/C: None Recommended Follow-up Testing/Procedures: Hospice/Palliative Care Consult Planned Operative Procedure(s) after DC: None Hospital Course: Patient was primarily admitted for end of life care. He has been progressively declining since his discharge 2 weeks ago according to his family. We suspect this may be related to his abnormal finding of rectal mass. Unfortunately, he refused further work up or evaluation. Hence, we did not have a whole lot to offer him except for supportive care and comfort measures. His family was receptive to this idea and immediately we made arrangement for his placement. Patient has been accepted to [facility] for placement this morning. Dr. Elizalde was called and updated about his discharge care plan. We recommended Hospice/ Palliative Care and his family will initiate this service as soon as he gets there or on his follow up appointment with his family doctor. - Patient Instructions Diet: Usual Diet as Tolerated Activity: As Tolerated Driving: May Drive Today Showering/Bathing: May Shower Notify Provider of: Fever, Increased Pain, Swelling and Redness, Drainage, Nausea and/or Vomiting Other/Special Instructions: - Please take all new medications as directed. - Resume all home medications and routine home activities as tolerated. - Eat anything you want. - Recommend Hospice/Palliative on follow up appointment with PCP or at the [facility]. - Call or follow up with your PCP for any questions or concerns after discharge. - Follow up with your PCP in 1-2 week. - Come back or seek immediate care should your symptoms persist or get worse - Discharge Plan *PRESCRIPTION DRUG MONITORING PROGRAM REVIEWED*: Not Applicable *COPY OF PRESCRIPTION DRUG MONITORING REPORT IN PATIENT NICHELLE: Not Applicable Prescriptions/Med Rec: Acetaminophen/HYDROcodone [[place] 325-5 MG] 1 tab PO Q6H PRN #20 tablet PRN Reason: Comfort Measures Medications Polyethylene Glycol 3350 [MiraLAX] 17 gm PO DAILY PRN #6 packet PRN Reason: Constipation Sennosides/Docusate Sodium [Senokot-S Tablet] 1 each PO DAILY PRN #30 tablet PRN Reason: Stool Softener Home Medications: Home Meds Aspirin [Halfprin] 81 mg PO DAILY 07/21/15 [History] Finasteride [Proscar] 5 mg PO DAILY 07/21/15 [History] Tamsulosin [Flomax] 0.4 mg PO DAILY 07/21/15 [History] Sertraline HCl 50 mg PO DAILY 10/31/17 [History] Ubidecarenone [Coq-10] 200 mg PO DAILY 10/31/17 [History] Dronabinol [Marinol] 2.5 mg PO BIDAC 11/01/17 [History] Cyanocobalamin (Vitamin B12) [Vitamin B12] 500 mcg PO DAILY #30 tablet 11/03/17 [Rx] RABEprazole Sodium [Aciphex] 20 mg PO DAILY 12/12/18 [History] Acetaminophen [Tylenol] 650 mg PO Q6H PRN tablet 12/13/18 [Rx] Ascorbate Calcium [Vitamin C] 500 mg PO DAILY 12/26/18 [History] Calcium Carbonate/Vitamin D3 [Calcium 500-Vit D3 200 Tablet] 1 tab PO DAILY [History] Ferrous Sulfate 325 mg PO WITHBREAKFAST PRN 12/26/18 [History] Acetaminophen/HYDROcodone [[place] 325-5 MG] 1 tab PO Q6H PRN #20 tablet 12/27/18 [Rx] Metoprolol Succinate [Toprol XL] 12.5 mg PO BEDTIME #0 12/27/18 [Rx] Polyethylene Glycol 3350 [MiraLAX] 17 gm PO DAILY PRN #6 packet 12/27/18 [Rx] Sennosides/Docusate Sodium [Senokot-S Tablet] 1 each PO DAILY PRN #30 tablet [Rx] hydroCHLOROthiazide [Hydrochlorothiazide] 12.5 mg PO DAILY #0 12/27/18 [Rx] Patient Handouts: Anemia, Weakness, [id number], Malnutrition, Palliative Care , End-of-Life Care, Hospice, Dehydration, Elderly, [id number], Failure to Thrive, Adult, [id number] Referrals: Henrry Elizalde MD [Primary Care Provider] - - Discharge Summary/Plan Comment DC Time >30 min.: No Discharge Summary/Plan Comment: Discharge to [facility] - General Info Date of Service: 12/27/18 Admission Dx/Problem (Free Text: Failure To Thrive Subjective Update: Follow Up Functional Status: Reports: Pain Controlled, Tolerating Diet, Ambulating, Urinating. Denies: New Symptoms - Review of Systems General: Denies: Fever, Chills HEENT: Reports: No Symptoms Pulmonary: Denies: Shortness of Breath Cardiovascular: Denies: Chest Pain, Dyspnea on Exertion, Lightheadedness Gastrointestinal: Reports: Decreased Appetite. Denies: Abdominal Pain, Nausea, Vomiting Genitourinary: Reports: No Symptoms Musculoskeletal: Reports: No Symptoms Skin: Denies: Cyanosis, Mottled, Pallor, Diaphoresis, Bruising Neurological: Reports: Weakness, Gait Disturbance. Denies: Confusion Psychiatric: Denies: Depression, Anxiety, Agitation, Hallucinations Systems Review Comment: No overnight or acute issues. He has no complaints. - Patient Data Vitals - Most Recent: Last Vital Signs Temp 37.0 C 12/27/18 08:41 Pulse 114 H 12/26/18 13:40 Resp 20 12/26/18 16:47 BP 102/76 12/26/18 16:44 Pulse Ox 100 12/26/18 17:33 Weight - Most Recent: 49.85 kg I&O - Last 24 hours: Intake & Output 12/26/18 12/27/18 12/27/18 22:59 06:59 14:59 Intake Total 240 0 Output Total 575 Balance -335 0 Lab Results - Last 24 hrs: Laboratory Results - last 24 hr 12/26/18 12/27/18 Range/Units 14:45 01:23 Troponin I 0.292 H* (0.00-0.056) ng/mL Urine Color Yellow (Yellow) Urine Appearance Clear (Clear) Urine pH 5.5 (5.0-8.0) Ur Specific [place] 1.020 (1.005-1.030) Urine Protein 1+ H (Negative) Urine Glucose (UA) Negative (Negative) Urine Ketones Trace H (Negative) Urine Occult Blood Negative (Negative) Urine Nitrite Negative (Negative) Urine Bilirubin 1+ H (Negative) Urine Urobilinogen 0.2 (0.2-1.0) Ur Leukocyte Esterase Negative (Negative) Urine RBC Not seen (0-5) /hpf Urine WBC 0-5 (0-5) /hpf Ur Epithelial Cells 0-5 (0-5) /hpf Amorphous Sediment Few H (NOT SEEN) /hpf Urine Bacteria Rare (FEW) /hpf Urine Mucus Not seen (FEW) /hpf Med Orders - Current: Current Medications Acetaminophen (Tylenol) 650 mg PO Q4H PRN PRN Reason: Pain (Mild 1-3)/fever Last Admin: 12/27/18 06:25 Dose: 650 mg Hydrocodone Bitart/Acetaminophen ([place] 325-5 Mg) 1 tab PO Q4H PRN PRN Reason: Pain (moderate 4-6) Last Admin: 12/27/18 08:45 Dose: 1 tab Albuterol/Ipratropium (Duoneb 3.0-0.5 Mg/3 Ml) 3 ml NEB Q4H PRN PRN Reason: Shortness Of Breath/wheezing Ascorbic Acid (Vitamin C) [address] [facility] Last Admin: 12/27/18 08:47 Dose: 500 mg Aspirin (Halfprin) [address] [facility] Last Admin: 12/27/18 08:47 Dose: 81 mg Calcium Carbonate (Calcium Carbonate/Vitamin D 600 Mg-200 Unit) [address] [facility] Last Admin: 12/27/18 08:46 Dose: 1 tab Cyanocobalamin (Vitamin B12) [address] [facility] Last Admin: 12/27/18 08:46 Dose: 500 mcg Dronabinol (Marinol) 2.[address] [facility] Last Admin: 12/27/18 10:59 Dose: 2.5 mg Finasteride (Proscar) [address] [facility] Last Admin: 12/27/18 08:47 Dose: 5 mg Hydrochlorothiazide (Hydrochlorothiazide) 12.[address] [facility] Last Admin: 12/27/18 08:45 Dose: 12.5 mg Hydromorphone HCl (Dilaudid) 0.25 mg IVPUSH Q2H PRN PRN Reason: Pain (severe 7-10) Lorazepam (Ativan) 0.25 mg IV Q6H PRN PRN Reason: Anxiety Metoprolol Succinate (Toprol Xl) 12.[address] [facility] Ondansetron HCl (Zofran) 4 mg IV Q6H PRN PRN Reason: Nausea/Vomiting Pantoprazole Sodium (Protonix) 40 mg PO DAILY@0700 [facility] Last Admin: 12/27/18 06:24 Dose: 40 mg Polyethylene Glycol (Miralax) 17 gm PO DAILY PRN PRN Reason: Constipation Senna/Docusate Sodium (Senna Plus) 1 tab PO BID PRN PRN Reason: Constipation Sertraline HCl (Zoloft) [address] [facility] Last Admin: 12/27/18 08:45 Dose: 50 mg Tamsulosin HCl (Flomax) 0.[address] [facility] Last Admin: 12/27/18 08:47 Dose: 0.4 mg Discontinued Medications Acetaminophen (Tylenol) 650 mg PO Q6H PRN PRN Reason: Pain Ferrous Sulfate (Ferrous Sulfate) 325 mg PO WITHBREAKFAST PRN PRN Reason: Other Sodium Chloride (Normal Saline) 1,000 mls @ 999 mls/hr IV ONETIME ONE Stop: 12/26/18 15:51 Last Admin: 12/26/18 14:51 Dose: 999 mls/hr Sodium Chloride (Normal Saline) Confirm Administered Dose 1,000 mls @ as directed .ROUTE .STK-MED ONE Stop: 12/26/18 14:49 Last Admin: 12/26/18 18:29 Dose: Not Given Non-Formulary Medication (Ubidecarenone) [address] [facility] - Exam General: Reports: Alert, Cooperative, No Acute Distress, Other (emaciated ) HEENT: Reports: Pupils Equal, Pupils Reactive, EOMI, Mucous Membr. Moist/[place] Neck: Reports: Supple Lungs: Reports: Normal Respiratory Effort, Decreased Breath Sounds Cardiovascular: Reports: Regular Rate, Regular Rhythm GI/Abdominal Exam: Normal Bowel Sounds, Soft, Non-Tender, No Organomegaly, No Distention, No Abnormal Bruit Rectal (Males) Exam: Deferred Back Exam: Reports: Normal Inspection, Decreased Range of Motion Extremities: Normal Inspection, Normal Range of Motion, Non-Tender, No Pedal Edema, Normal Capillary Refill Skin: Reports: Warm, Dry, Intact Neurological: Reports: No New Focal Deficit (limited due to generalized weakness ) Psy/Mental Status: Reports: Alert, Normal Affect, Normal Mood
--- NOTE | 2018-12-27 13:25 | PCM.SN ---
- Free Text/Narrative Note: Patient seen and examined at bedside. No overnight or acute issues. He looks comfortable and no complaints. His family is at bedside and he has been accepted at [facility] for placement. His daughters will discussed hospice/ palliative care options as soon as he gets there as the facility. His discharge care plan was communicated to his PCP, Dr. Elizalde. Prior to discharge I offered comfort measures medications but his family initially refused everything. But later his daughter changed her mind and requested for [place] 325-5mg po as needed for pain. So he was discharged with it along with stool softeners. Of note, his UA was negative for UTI.
[2018-12-27] MEDS ORDERED: Metoprolol Succinate 25 MG Tab.ER PO SCH (21:00)
== END 2018-12-27 14:48 | disposition home or self-care (01) | DRG 640 ==
LOC: JD.ED 13:31 → JD.MS 15:44
PROVIDERS: ADMIT Internal Medicine; ATTEND Internal Medicine
DX: R62.7 Adult failure to thrive (principal); N28.9 Disorder of kidney and ureter, unspecified; G92 Toxic encephalopathy; I50.32 Chronic diastolic (congestive) heart failure; R64 Cachexia; Z68.1 Body mass index [BMI] 19.9 or less, adult; I13.0 Hypertensive heart and chronic kidney disease with heart failure and stage 1 through stage 4 chronic kidney disease, or unspecified chronic kidney disease; E46 Unspecified protein-calorie malnutrition; I50.22 Chronic systolic (congestive) heart failure; E86.0 Dehydration; D69.6 Thrombocytopenia, unspecified; I95.9 Hypotension, unspecified; E78.00 Pure hypercholesterolemia, unspecified; N18.9 Chronic kidney disease, unspecified; E78.5 Hyperlipidemia, unspecified; I25.10 Atherosclerotic heart disease of native coronary artery without angina pectoris; I25.5 Ischemic cardiomyopathy; I48.0 Paroxysmal atrial fibrillation; J44.9 Chronic obstructive pulmonary disease, unspecified; K21.9 Gastro-esophageal reflux disease without esophagitis; N40.0 Benign prostatic hyperplasia without lower urinary tract symptoms; M19.90 Unspecified osteoarthritis, unspecified site; M54.9 Dorsalgia, unspecified; G89.29 Other chronic pain; R06.82 Tachypnea, not elsewhere classified; R06.03 Acute respiratory distress; R42 Dizziness and giddiness; R53.1 Weakness; R06.02 Shortness of breath; R10.9 Unspecified abdominal pain; R74.8 Abnormal levels of other serum enzymes; I87.2 Venous insufficiency (chronic) (peripheral); K62.9 Disease of anus and rectum, unspecified; F32.9 Major depressive disorder, single episode, unspecified; M81.0 Age-related osteoporosis without current pathological fracture; D64.9 Anemia, unspecified; E53.8 Deficiency of other specified B group vitamins; H54.7 Unspecified visual loss; I25.2 Old myocardial infarction; Z66 Do not resuscitate; Z88.0 Allergy status to penicillin; Z79.899 Other long term (current) drug therapy; Z79.82 Long term (current) use of aspirin; Z95.0 Presence of cardiac pacemaker; Z90.3 Acquired absence of stomach [part of]; Z85.028 Personal history of other malignant neoplasm of stomach; Z85.828 Personal history of other malignant neoplasm of skin; Z51.5 Encounter for palliative care
CPT/HCPCS: 36415; 71045; 84484; 93005; 96360; 99285; J7040; 81001; 87086; 93010; 94760; 99284; A9270-GY; Q0167